=== PATIENT | male | born 1960 | race Caucasian/White ===

== ENCOUNTER 2020-08-23 18:37 | Inpatient (IN) | payer OTHER ==
[~2020-08-23] VITALS: Ht 185.4 cm; Wt 44.6 kg
--- NOTE | 2020-08-23 19:12 | NUR ---
KATE [address] C/O HEAD INJURY AND L ARM WOUNDS S/P GLF. PT NOTED WITH MULTIPLE INJURIES. AOX4, NO SOB NOTED, DENIES PAIN AT THIS TIME. NO S/S OF ANY ACUTE DISTRESS. PT MADE COMFORTABLE, CALL LIGHT WITHIN REACH.
--- NOTE | 2020-08-23 19:18 | NUR ---
BLOOD COLLECTED AND SENT TO THE LAB.
--- NOTE | 2020-08-23 19:33 | NUR ---
JEANNETTE RUBIN COLLECTED ANDSENT TO THE LAB.
[2020-08-23 19:36] LABS: CALCIUM, SERUM 8.6 mg/dL (8.5-10.1); CREATININE 0.6 mg/dL (0.6-1.3); POTASSIUM 4.5 mmol/L (3.5-5.1)
[2020-08-23 19:42] LABS: ALBUMIN 2.2 g/dL (3.4-5.0); BILIRUBIN,DIRECT 0.1 mg/dL (0.0-0.2); BILIRUBIN,TOTAL 0.3 mg/dL (0.2-1.0)
[2020-08-23 19:50] LABS: BASOPHILS # (AUTO) 0.1 K/uL (0.0-0.2); BASOPHILS % (AUTO) 0.8 % (0.0-2.0); EOSINOPHILS % (AUTO) 1.1 % (0.0-6.0); HEMATOCRIT 33 % (39-51); HEMOGLOBIN 10.9 g/dL (13.5-17.5); LYMPHOCYTES # (AUTO) 1.7 K/uL (0.8-4.8); LYMPHOCYTES % (AUTO) 17.6 % (20.0-44.0); MEAN CORPUSCULAR HGB CONC 33 g/dl (31.0-36.0); MEAN CORPUSCULAR VOLUME 89 fL (80-96); MONOCYTES # (AUTO) 0.9 K/uL (0.1-1.30); NEUTROPHILS # (AUTO) 6.8 K/uL (1.8-8.9); NEUTROPHILS % (AUTO) 71.5 % (43.0-81.0); PLATELET COUNT (AUTO) 352 K/uL (150-450); RED BLOOD CELL COUNT(AUTO) 3.71 MIL/uL (4.5-6.0); WHITE BLOOD COUNT (AUTO) 9.5 K/uL (4.3-11.0)
[2020-08-23] MEDS ORDERED: ZOLPIDEM TARTRATE 5 MG TABLET PO PRN (20:30)
[2020-08-23] MEDS ORDERED: MAG HYDROX/AL HYDROX/SIMETH 30 ML UDC PO PRN (20:30)
[2020-08-23] MEDS ORDERED: MAGNESIUM HYDROXIDE 30 ML UDC PO PRN (20:30)
[2020-08-23] MEDS ORDERED: ONDANSETRON HCL/PF 4 MG/2 ML VIAL IVP PRN (20:30)
[2020-08-23] MEDS ORDERED: IV NS 0.9% 1,000 ML BAG IV ONE (20:30)
--- NOTE | 2020-08-23 20:35 | NUR ---
SPOKE WITH LOOP TENDER, PATIENT WILL BE ON GENERALIZED OBSERVATION.
--- NOTE | 2020-08-23 22:08 | NUR ---
TELE 105
--- NOTE | 2020-08-23 22:36 | NUR ---
REPORT GIVEN TO JAVON SUTTON FOR RUSS.
--- NOTE | 2020-08-23 23:11 | NUR ---
PT TRANSFERED PER ACLS PROTOCOL
--- NOTE | 2020-08-23 23:55 | NUR ---
MED NOTE: PT OFFERED NORCO FOR PAIN BUT HE REFUSED. NORCO WAS WASTED WITNESSED BY HEYDI SUTTON.
[2020-08-24] VITALS: BP 118/84
[2020-08-24] MEDS ORDERED: HYDROCODONE/APAP 5/325MG TABLET PO PRN
[2020-08-24 04:00] VITALS: BP 123/79
[2020-08-24 06:49] LABS: BASOPHILS # (AUTO) 0.1 K/uL (0.0-0.2); BASOPHILS % (AUTO) 0.6 % (0.0-2.0); EOSINOPHILS % (AUTO) 1.7 % (0.0-6.0); HEMATOCRIT 33 % (39-51); LYMPHOCYTES # (AUTO) 1.9 K/uL (0.8-4.8); MEAN CORPUSCULAR HGB CONC 33 g/dl (31.0-36.0); MEAN CORPUSCULAR VOLUME 88 fL (80-96); MONOCYTES # (AUTO) 0.8 K/uL (0.1-1.30); NEUTROPHILS # (AUTO) 6.1 K/uL (1.8-8.9); NEUTROPHILS % (AUTO) 67.7 % (43.0-81.0); PLATELET COUNT (AUTO) 377 K/uL (150-450); RED BLOOD CELL COUNT(AUTO) 3.75 MIL/uL (4.5-6.0)
[2020-08-24] MEDS: PANTOPRAZOLE 40 MG TABLET.DR PO SCH (07:26)
--- NOTE | 2020-08-24 07:30 | NUR ---
RN NOTE PATIENT IS IN BED WITH HOB AT SEMI FOWLERS POSITION. PATIENT IS AOX4. PATIENT IS ON ROOM AIR WITH NO SIGNS OF LABORED BREATHING. RFA#18 IS PATENT AND INTACT. BED IS LOCKED IN THE LOWEST POSITION, 3 GUARD RAILS RAISED, CALL PIZANO WITHIN REACH, AND ALL HOSPITAL SAFETY PRECAUTIONS ARE BEING FOLLOWED. WILL CONTINUE TO MONITOR THROUGHOUT SHIFT.
[2020-08-24 07:52] LABS: CALCIUM, SERUM 8.3 mg/dL (8.5-10.1); CREATININE 0.4 mg/dL (0.6-1.3); MAGNESIUM 1.7 mg/dL (1.8-2.4); PHOSPHORUS 3.1 mg/dL (2.5-4.9); POTASSIUM 3.9 mmol/L (3.5-5.1)
[2020-08-24 08:00] VITALS: BP 108/75
[2020-08-24 08:48] LABS: THYROID STIMULATING HORMONE 1.447 uIU/mL (0.358-3.74)
--- NOTE | 2020-08-24 08:56 | NUR ---
patient refused to do ct chest.
[2020-08-24] MEDS ORDERED: IV NS 0.9% 250 ML IV ONE (09:04)
[2020-08-24] MEDS ORDERED: IOHEXOL-300 100 ML VIAL IV ONE (09:04)
[2020-08-24] MEDS: Magnesium 1GM/D5W 100ML PREMIX 100 ML IV SCH ×2 (10:06→11:42)
[2020-08-24] MEDS: MORPHINE SULFATE INJ 4 MG/ML DISP.SYRIN IV PRN ×3 (10:51→20:38)
[2020-08-24] MEDS ORDERED: TIOTROPIUM BROMIDE 6 CAP/BOX CAP.W.DEV IH SCH (12:30)
[2020-08-24] MEDS: ENSURE ENLIVE 237 ML LIQUID (VANILLA) PO SCH ×2 (12:52→17:48)
[2020-08-24] MEDS: GABAPENTIN 300 MG CAPSULE PO SCH ×2 (12:52→16:04)
[2020-08-24] MEDS: DOCUSATE SODIUM 100 MG CAPSULE PO SCH ×2 (12:52→16:04)
[2020-08-24] MEDS: oxyCODONE IR immediate release 5 MG PO PRN ×2 (12:58→21:23)
[2020-08-24] MEDS ORDERED: ENSURE ENLIVE 237 ML LIQUID (VANILLA) PO SCH (13:00)
--- NOTE | 2020-08-24 15:40 | NUR ---
RN NOTE NOTIFIED RT OF PATIENT'S SCHEDULED NEBULIZER TREATMENT
[2020-08-24 16:00] VITALS: BP 108/76
[2020-08-24] MEDS: MEGESTROL ACETATE SUSP 400 MG/10 ML UDC PO SCH (16:04)
--- NOTE | 2020-08-24 17:10 | NUR ---
RN NOTE NOTIFIED DR. VALDIVIA OF DR. MEYERS'S FINDINGS FROM CT OF CHEST/ABDOMEN/PELVIS.
[2020-08-24] MEDS: LEVOFLOXACIN 500 MG /D5W 100ML 500 MG in PREMIX 1 EA IV SCH (18:32)
--- NOTE | 2020-08-24 18:50 | NUR ---
RN NOTE PATIENT IS IN BED WITH HOB AT SEMI FOWLERS POSITION. PATIENT IS AOX4. PATIENT IS ON ROOM AIR WITH NO SIGNS OF LABORED BREATHING. RFA#18 IS PATENT AND INTACT. BED IS LOCKED IN THE LOWEST POSITION, 3 GUARD RAILS RAISED, CALL PIZANO WITHIN REACH, AND ALL HOSPITAL SAFETY PRECAUTIONS ARE BEING FOLLOWED. ALL DUE MEDS GIVEN AND PATIENT REMAINED STABLE THROUGHOUT SHIFT. WILL ENDORSE TO FISH CLEANER MACHINE TENDER RN.
--- NOTE | 2020-08-24 19:30 | NUR ---
MS RN NOTES PATIENT IN BED. A/OX4. EATING SNACKS. NO S/S OF APPARENT DISTRESS. C/O PAIN. NO IV FLUIDS RUNNING AT THE MOMENT. SAFETY IN PLACE. ISOLATION PRECAUTION IN PLACE. WILL CONTINUE TO MONITOR.
[2020-08-24] MEDS: IPRATROPIUM NEB FS 0.5 MG/2.5 ML AMPUL.NEB NEB SCH (20:19)
[2020-08-24] MEDS: ALBUTEROL FS 2.5 MG/0.5 ML VIAL.NEB NEB SCH (20:20)
[2020-08-24] MEDS: CLINDAMYCIN 900 MG in IV D5W 50 ML IV SCH (20:25)
--- NOTE | 2020-08-24 21:08 | NUR ---
MS RN NOTES MORPHINE 1ML GIVEN AT THIS TIME. PATIENT C/O 10/10 PAIN. WILL REASSESS.
--- NOTE | 2020-08-24 22:15 | NUR ---
MS RN NOTES PATIENT C/O UNRELIEVED PAIN, PAIN SCALE OF 8/10. GIVEN OXY IR 30MG. WILL REASSESS AND CONT. TO MONITOR. V/S OKAY.
[2020-08-25] MEDS: MORPHINE SULFATE INJ 4 MG/ML DISP.SYRIN IV PRN ×4 (01:13→22:22)
[2020-08-25] MEDS: IPRATROPIUM NEB FS 0.5 MG/2.5 ML AMPUL.NEB NEB SCH ×4 (02:17→20:31)
[2020-08-25] MEDS: ALBUTEROL FS 2.5 MG/0.5 ML VIAL.NEB NEB SCH ×4 (02:17→20:31)
[2020-08-25] MEDS: CLINDAMYCIN 900 MG in IV D5W 50 ML IV SCH ×3 (05:02→20:02)
[2020-08-25 06:05] LABS: BASOPHILS # (AUTO) 0.1 K/uL (0.0-0.2); BASOPHILS % (AUTO) 0.7 % (0.0-2.0); EOSINOPHILS % (AUTO) 0.7 % (0.0-6.0); HEMATOCRIT 33 % (39-51); HEMOGLOBIN 10.9 g/dL (13.5-17.5); LYMPHOCYTES # (AUTO) 1.9 K/uL (0.8-4.8); LYMPHOCYTES % (AUTO) 18.5 % (20.0-44.0); MEAN CORPUSCULAR HGB CONC 33 g/dl (31.0-36.0); MEAN CORPUSCULAR VOLUME 90 fL (80-96); MONOCYTES % (AUTO) 9.8 % (2.0-12.0); NEUTROPHILS # (AUTO) 7.1 K/uL (1.8-8.9); NEUTROPHILS % (AUTO) 70.3 % (43.0-81.0); PLATELET COUNT (AUTO) 395 K/uL (150-450); RED BLOOD CELL COUNT(AUTO) 3.67 MIL/uL (4.5-6.0); WHITE BLOOD COUNT (AUTO) 10.1 K/uL (4.3-11.0)
[2020-08-25 06:34] LABS: CALCIUM, SERUM 8.5 mg/dL (8.5-10.1); CREATININE 0.5 mg/dL (0.6-1.3); POTASSIUM 4.7 mmol/L (3.5-5.1)
--- NOTE | 2020-08-25 07:00 | NUR ---
MS RN CLOSING PATIENT IN BED. A/OX4. NO S/S OF APPARENT DISTRESS. PAIN MANAGED WITH MEDICATIONS. SAFETY KEPT IN PLACE THE WHOLE SHIFT. ISOLATION IN PLACE. ALL NEEDS ATTENDED. ALL SCHED MEDS ADMINISTERED. PICTURES TAKEN. [employer] COLLECTED AND CALLED LAB FOR PICK-UP. NO SIGNIFICANT CHANGE SINCE LAST SHIFT. WILL ENDORSE CARE TO MORNING SHIFT RN.
[2020-08-25] MEDS: PANTOPRAZOLE 40 MG TABLET.DR PO SCH (07:59)
[2020-08-25] MEDS: DOCUSATE SODIUM 100 MG CAPSULE PO SCH ×2 (08:00→16:02)
[2020-08-25] MEDS: ENSURE ENLIVE 237 ML LIQUID (VANILLA) PO SCH ×3 (08:00→17:00)
[2020-08-25] MEDS: MEGESTROL ACETATE SUSP 400 MG/10 ML UDC PO SCH ×2 (08:00→16:02)
[2020-08-25] MEDS: GABAPENTIN 300 MG CAPSULE PO SCH ×3 (08:00→16:02)
--- NOTE | 2020-08-25 09:48 | NUR ---
RN NOTE PATIENT IS IN BED WITH HOB AT SEMI FOWLERS POSITION. PATIENT IS AOX4. PATIENT IS ON ROOM AIR WITH NO SIGNS OF LABORED BREATHING. LFA#20 IS PATENT AND INTACT. BED IS LOCKED IN THE LOWEST POSITION, 3 GUARD RAILS RAISED, CALL PIZANO WITHIN REACH, AND ALL HOSPITAL SAFETY PRECAUTIONS ARE BEING FOLLOWED. WILL CONTINUE TO MONITOR THROUGHOUT SHIFT.
--- NOTE | 2020-08-25 09:59 | NUR ---
WOUND CARE CONSULT: PT PRESENTS EXTREMELY THIN AND BONY WITH MULTIPLE AREAS OF SCARRING, DRY SKIN, DRY ABRASION TO POSTERIOR SCALP AND RASH TO SCROTAL AREA, PRESENT ON ADMISSION. RECOMMENDATIONS MADE FOR SKIN PROTECTION. DISCUSSED WITH NURSING STAFF. PT IS INDEPENDENT WITH BED MOBILITY AND IS CONTINENT. MD IN AGREEMENT WITH PLAN OF CARE.
[2020-08-25] MEDS: MINERAL OIL/PETROLATUM,WHITE 120 GM JAR TP SCH (10:00)
[2020-08-25] MEDS: oxyCODONE IR immediate release 5 MG PO PRN ×2 (11:24→19:36)
--- NOTE | 2020-08-25 16:09 | NUR ---
Well Logger consult: student services dean consult requested for homelessness, self-neglect, and failure to thrive. Patient is a 60-year-old, male. Suspected TB reported by RN Mayco. COMFORT interviewed patient via phone interview. Patient stated that he is currently homeless for the last two years due to "poor business investments." Patient stated that he currently has cancer. Patient stated that he has been to shelters in the past. Patient currently receives food stamps as a source of income. Patient reported that he has support from local churches and is independent with his ADL's. Patient denied history of substance use. Patient denied history of mental illness. Patient denied current suicidal or homicidal ideation. COMFORT offered patient homeless resources and patient declined the resources stating, "I don't need them, I have all the resources." SW filed homeless waiver in the patient's chart. staffing analyst to follow up at a later time. COMFORT discussed discharge plans with the patient and patient reported that he wants to return to the streets. COMFORT asked patient if he would consider other options for discharge in order due to his health conditions. Patient declined and stated "I want to do things naturally and on my own." COMFORT notified family service caseworkerRosalinda. Case management to follow up. SS will file an APS report for self-neglect. PLAN: SS will file an APS report for self-neglect.
[2020-08-25] MEDS: CLOTRIMAZOLE 1% 15 GM TUBE TP SCH (17:00)
[2020-08-25] MEDS: LEVOFLOXACIN 500 MG /D5W 100ML 500 MG in PREMIX 1 EA IV SCH (17:02)
--- NOTE | 2020-08-25 18:00 | NUR ---
RN NOTE CONSENT OBTAINED FOR CT W/ CONTRAST OF ABDOMEN AND PELVIS. Addendum: 08/25/20 at 1908 by MELE TEMPLETON RN MRI NOT CT
--- NOTE | 2020-08-25 18:45 | NUR ---
RN NOTE PATIENT IS IN BED WITH HOB AT SEMI FOWLERS POSITION. PATIENT IS AOX4. PATIENT IS ON ROOM AIR WITH NO SIGNS OF LABORED BREATHING. LFA#20 IS PATENT AND INTACT. BED IS LOCKED IN THE LOWEST POSITION, 3 GUARD RAILS RAISED, CALL PIZANO WITHIN REACH, AND ALL HOSPITAL SAFETY PRECAUTIONS ARE BEING FOLLOWED. ALL DUE MEDS GIVEN AND PATIENT REMAINED STABLE THROUGHOUT SHIFT. WILL ENDORSE TO SALON SHAMPOO ASSISTANT RN.
--- NOTE | 2020-08-25 19:20 | NUR ---
RN NOTE RECEIVED PATIENT IN BED RESTING ALERT ORIENTED X4 VERBALLY RESPONSIVE ON ROOM AIR 98% IV SITE IS ON LEFT FOREARM INTACT PATENT NPO AFTER MIDNIGHT FOR PROCEDURE TOMORROW MORNING,AMBULATORY CONTINENT TO BOWEL/BLADDER,CALL LIGHT WITHIN REACH,BED IN LOW POSITION AND LOCKED CONTINUE TO MONITOR.
[2020-08-25 19:22] LABS: PROSTATE SPECIFIC ANTIGEN SCR 0.98 ng/mL (0.00-4.00)
[2020-08-25 20:50] VITALS: BP 106/65
--- NOTE | 2020-08-25 21:04 | NUR ---
RT placed pt on 2lnc due to desaturation. sat 85-88%, following post tx. saturation 95-97% on cannula. notified sherice, primary nurse, and efra charge nurse. will continue to monitor pt
--- NOTE | 2020-08-25 21:05 | NUR ---
RN NOTE O2:88-90% ON ROOM AIR RT PUT OXYGEN 2L VIA NASAL CANNULA CALLED DR CLARK SHE ORDERED INCREASE OXYGEN AND CHEST X RAY STAT NOTED AND CARRIED OUT.
--- NOTE | 2020-08-25 21:29 | NUR ---
RN NOTE RECEIVED PATIENT IN BED RESTING ALERT ORIENTED X4 VERBALLY RESPONSIVE ON ROOM AIR 98% IV SITE IS ON LEFT FOREARM INTACT PATENT NPO AFTER MIDNIGHT FOR PROCEDURE TOMORROW MORNING,AMBULATORY CONTINENT TO BOWEL/BLADDER,CALL LIGHT WITHIN REACH,BED IN LOW POSITION AND LOCKED CONTINUE TO MONITOR. Addendum: 08/26/20 at 0604 by NICOLE OLIVAS RN PLS DISREGARD THIS NOTE
[2020-08-25 22:00] VITALS: BP 106/65
[2020-08-26] VITALS (65 sets, daily range): BP systolic 56–161; BP diastolic 30–94
[2020-08-26] MEDS: ALBUTEROL FS 2.5 MG/0.5 ML VIAL.NEB NEB SCH ×4 (02:01→20:18)
[2020-08-26] MEDS: IPRATROPIUM NEB FS 0.5 MG/2.5 ML AMPUL.NEB NEB SCH ×4 (02:01→20:18)
[2020-08-26] MEDS: MORPHINE SULFATE INJ 4 MG/ML DISP.SYRIN IV PRN (03:05)
[2020-08-26] MEDS: CLINDAMYCIN 900 MG in IV D5W 50 ML IV SCH ×3 (04:15→22:33)
[2020-08-26] MEDS ORDERED: LORAZEPAM INJ 2 MG/ML VIAL IV ONE (04:30)
[2020-08-26] MEDS ORDERED: LORAZEPAM INJ 2 MG/ML VIAL IV PRN (04:30)
--- NOTE | 2020-08-26 04:41 | NUR ---
RN NOTES, CALLED DR MATAMOROS AND INFORMED ABOUT PATIENT'S CONDITION, SUPERVISOR CAP AND HAT PRODUCTION AT ROOM AT THIS TIME ASSESSING PATIENT, INFORMED MD THAT PATIENT WITH DESATURATION EPISODE AND PLACE ON NRM AT 15L WITH O2 90 AT THIS TIME, AND SHE REPLIED WITH [facility], AND GIVE LASIX 40MG IV X ONE, AND INFORMED HER ABOUT [facility] RESULTS.
[2020-08-26] MEDS ORDERED: FUROSEMIDE 20 MG/2 ML VIAL IV ONE (04:47)
--- NOTE | 2020-08-26 04:58 | NUR ---
RN NOTES, INFORMED [facility] THAT PATIENT STILL VERY LETHARGIC WITH O2 96%, BUT WITH LOW RESPIRATORY RATE OF 6, MD REPLIED WITH ORDER TO TRANSFER TO ICU, CALL ER TEAM AND INTUBATE, ALL ORDERS NOTED AND CARRIED OUT.
[2020-08-26 05:01] LABS: ABG BASE EXCESS 2.7 mmol/L; ABG OXYGEN SATURATION 94.8 % (92.0-98.5); ABG PCO2 191.3 mmHg (35.0-45.0); ABG PH 6.934 (7.350-7.450); ABG PO2 109.2 mmHg (75.0-100.0); AaDO2 412.5 mmHg; COHb 0.6 % (0.5-1.5); MetHb 0.4 % (0.0-1.5); O2Hb 93.9 % (94.0-97.0); SITE, ABG Left Brachial; VENT MODE, BG 15 LMP
--- NOTE | 2020-08-26 05:10 | NUR ---
RN NOTE PATIENT TRANSFERRED TO ICU AT ROOM 255
--- NOTE | 2020-08-26 05:11 | NUR ---
RN NOTE DURING MY SHIFT PATIENT WAS IN ROOM AIR AND BREATHING BY OWN AT 22:00 PATIENT DESATURATING TO LOW [address] MATAMOROS AND SHE ORDERED CHEST X-RAY AND INCREASED OXYGEN,AT 4:00 AM PATIENT DESATURATING AT PUT NONBREATHER MASK 15L STILL 88% CALLED RAPID RESPONSE AT 0433,RAPID RESPONSE ARRIVED ON 0435,PATIENT LETHARGIC,BREATHING VERY SLOW VITAL SIGN BP 141/82 RR 4 O2;88% ON NON REBREATHER MASK BLOOD SUGAR IS 98.O2; IMPROVED TO 97% BUT RESPIRATORY RATE IS 4 TRANSFERRED TO ICU AT 0505
--- NOTE | 2020-08-26 05:15 | NUR ---
SAUSAGE TIER. VENKATA RN ACTIVATED RAPID RESPOND. I WENT ASSESSED THE PT . PT WAS VERY DROWSY . .. PT VOMITED NOTED. SATURATION WAS 90 WITH NON REBREATHER. BP AND HEART RATE WAS NORMAL. TRANSFER THE PT TO ICU FOR INTUBATION. MD REICH CAME AND INTUBATED THE PT. ETOMIDATE 20MG IV, SUCCINYLCHOLINE 120MG IV GIVEN. PT INTUBATED AT 0524. ETT 7.5,LIP 23,AC 28,TV 500,FIO2 100%,PEEP 5. SAT 94%.
[2020-08-26 05:56] LABS: BASOPHILS % (AUTO) 0.4 % (0.0-2.0); EOSINOPHILS % (AUTO) 0.7 % (0.0-6.0); HEMATOCRIT 33 % (39-51); HEMOGLOBIN 10.8 g/dL (13.5-17.5); LYMPHOCYTES # (AUTO) 2.2 K/uL (0.8-4.8); LYMPHOCYTES % (AUTO) 16.4 % (20.0-44.0); MEAN CORPUSCULAR HGB CONC 32 g/dl (31.0-36.0); MEAN CORPUSCULAR VOLUME 90 fL (80-96); MONOCYTES # (AUTO) 1.1 K/uL (0.1-1.30); MONOCYTES % (AUTO) 8.1 % (2.0-12.0); NEUTROPHILS # (AUTO) 9.8 K/uL (1.8-8.9); NEUTROPHILS % (AUTO) 74.4 % (43.0-81.0); PLATELET COUNT (AUTO) 468 K/uL (150-450); WHITE BLOOD COUNT (AUTO) 13.1 K/uL (4.3-11.0)
[2020-08-26 06:01] LABS: ABG OXYGEN SATURATION 99.8 % (92.0-98.5); ABG PCO2 76.8 mmHg (35.0-45.0); ABG PH 7.288 (7.350-7.450); ABG PO2 341.9 mmHg (75.0-100.0); AaDO2 294.3 mmHg; COHb 0.1 % (0.5-1.5); MetHb 0.3 % (0.0-1.5); O2Hb 99.4 % (94.0-97.0); SITE, ABG Left Radial; VENT MODE, BG AC 24 500 100% +5
[2020-08-26] MEDS: PROPOFOL 100 ML IV PRN ×4 (06:05→22:32)
--- NOTE | 2020-08-26 06:05 | NUR ---
SALES SPECIALIST. PT WAS AGITATED. NOA SOFT WRIST RESTRAINT INITIATED . FC INSERTED WITH OUT DIFFICULT. IVF NS 100ML/H, PROPOFOL 5MCG/KG/MIN,LEVOPHED 0.1MCG/KG/MIN, STARTED. S/P INTUBATION CHEST X RAY DONE. PT IS UNSTABLE. REPORT GIVEN CLAYTON SUTTON.
[2020-08-26] MEDS: IV NS 0.9% 1,000 ML IV PRN ×2 (06:14→15:50)
[2020-08-26 06:25] LABS: CALCIUM, SERUM 8.9 mg/dL (8.5-10.1); CREATININE 0.7 mg/dL (0.6-1.3); POTASSIUM 5.3 mmol/L (3.5-5.1)
--- NOTE | 2020-08-26 07:10 | NUR ---
BROOM BUILDER NOTES RECEIVED PATIENT IN BED, S/P ANTIQUE DEALER CODE. INTUBATED AND ON A VENT, NOTED WITH MILD AGITATION. WILL TITRATE PROPOFOL, NOTED WITH NOA SOFT WRIST RESTRAINT. SOW CATHTER IN PLACE DRAINING CLEAR YELLOW URINE, IV ACCESS ON LEFT FOREARM #20, PROPOFOL @10 MCG/KG/MIN, LEVO 0.1 MCG/KG/MIN AND NS RUNNING @100ML/HR. SAFETY MEASURES MAINTAINED, WILL CONTINUE TO MONITOR.
[2020-08-26] MEDS: PANTOPRAZOLE 40 MG TABLET.DR PO SCH (07:30)
[2020-08-26] MEDS: NOREPINEPHRINE 8 MG in IV NS 0.9% 242 ML IV PRN ×2 (07:30→21:25)
[2020-08-26] MEDS: MEGESTROL ACETATE SUSP 400 MG/10 ML UDC PO SCH ×2 (08:28→17:20)
[2020-08-26] MEDS: DOCUSATE SODIUM 100 MG CAPSULE PO SCH ×2 (08:28→17:20)
[2020-08-26] MEDS: ENSURE ENLIVE 237 ML LIQUID (VANILLA) PO SCH ×3 (08:28→17:00)
[2020-08-26] MEDS: GABAPENTIN 300 MG CAPSULE PO SCH ×3 (08:28→17:20)
--- NOTE | 2020-08-26 08:30 | NUR ---
RN HEMO DIALYSIS NOTES PATIENT HR WENT UP, ON LEVO, MADE AWARE WITH ORDER OF NS 500ML TO GIVE BOLUS. ORDERS MADE AND CARRIED OUT. WILL CONTINUE TO MONITOR.
[2020-08-26] MEDS ORDERED: IV NS 0.9% 500 ML IV ONE (09:00)
--- NOTE | 2020-08-26 09:00 | NUR ---
BINGO USHER NOTES HR STILL ON 110'S, MADE AWARE WITH ORDER OF NEOSYNEPHRINE IV DRIP STANDARD DOSE, ORDERS MADE AND CARRIED OUT. WILL CONTINUE TO MONITOR.
[2020-08-26] MEDS: CLOTRIMAZOLE 1% 15 GM TUBE TP SCH ×2 (09:28→17:20)
[2020-08-26] MEDS: MINERAL OIL/PETROLATUM,WHITE 120 GM JAR TP SCH (09:28)
--- NOTE | 2020-08-26 09:30 | NUR ---
CARD GAME OPERATOR NOTES SEEN AND EXAMINED BY DR. LEVIN WITH NNO AT THIS TIME.
[2020-08-26] MEDS: PHENYLEPHRINE 50 MG in IV NS 0.9% 245 ML IV PRN ×3 (09:59→22:16)
--- NOTE | 2020-08-26 10:41 | NUR ---
PATIENT ON VENT UNABLE TO DO MRI, NURSE NOTIFIED.
[2020-08-26] MEDS: HYDROCORTISONE SOD SUCCINATE 100 MG/2 ML VIAL IV SCH ×2 (10:53→18:03)
[2020-08-26] MEDS ORDERED: ETOMIDATE 2 MG/ML VIAL IV ONE (11:28)
[2020-08-26] MEDS ORDERED: SUCCINYLCHOLINE CHLORIDE 20 MG/ML VIAL IV ONE (11:28)
[2020-08-26] MEDS ORDERED: FEE EMEERGENCY 1 MIN EA MC ONE (11:28)
--- NOTE | 2020-08-26 13:30 | NUR ---
TRAIN CONTROL TECHNICIAN NOTES NG TUBE INSERTED ON RIGHT NARE, VERIFIED WITH FENG CHARGE NURSE. WILL CONTINUE TO MONITOR.
[2020-08-26] MEDS: FERROUS SULFATE (325 MG) 325 MG/TAB TABLET PO SCH ×2 (13:43→17:20)
[2020-08-26] MEDS: ACETAMINOPHEN 325 MG TABLET PO PRN (13:43)
[2020-08-26 14:45] LABS: BILIRUBIN,URINE NEGATIVE (NEGATIVE); COLOR,URINE YELLOW (YELLOW); LEUKOCYTE ESTERASE ,URINE NEGATIVE (NEGATIVE); NITRITE, URINE NEGATIVE (NEGATIVE); PROTEIN,URINE NEGATIVE (NEGATIVE); UGLUCOSE NEGATIVE (NEGATIVE); UROBILINOGEN,URINE 0.2 EU/dL (0.2)
--- NOTE | 2020-08-26 15:04 | NUR ---
SW completed APS report for self-neglect. Intake #[id number].
[2020-08-26] MEDS: LEVOFLOXACIN 500 MG /D5W 100ML 500 MG in PREMIX 1 EA IV SCH (17:21)
--- NOTE | 2020-08-26 18:24 | NUR ---
PT. 60 Y OLD MALE. REC. IN ICU 077 ORALLY INTUBATED, ETT #7.5@23 CM LIP LINE, ON VENT WITH NOTED SETTINGS, ALARMS ARE SET AND FUNCTIONAL. B/S DIMINISHED BILATERALLY, CHEST RISE NOTED VENT PLUGGED INTO RED OUTLET, AMBU BAG AT THE BEDSIDE. @0725 PLACED ON FIO2 100% DUE TO DESATURATION. @0830 D/C PEEP PER DR. HYATT ORDER AT THE BEDSIDE DUE TO HYPOTENSIVE. @1350 FIO2 70% TITRATED. TX'S GIVEN INLINE NO ADVERSE REACTION NOTED, CONTINUOUS MINER OPERATOR HELPER DONE HME CHANGED NO ABG PER DR. HYATT NO CHANGES AND REPORT WILL PASS TO PM SHIFT. Addendum: 08/26/20 at 1831 by JACQUELINE PAGE RT Amended: Links added.
--- NOTE | 2020-08-26 18:54 | NUR ---
PHYSICAL EDUCATION AIDE NOTES PATIENT IN BED, INTUBATED AND SEDATED, TOLERATING CURRENT SETTING SATING 97%, IV ACCESS ON LEFT FOREARM#20 RUNNING NS @100ML/HR, LEVO @0.2 MCG/KG/MIN, ELLEN @3 MCG/KG/MIN AND PROPOFOL @70 MCG/KG/MIN. AWAITING FOR PICC LINE INSERTION, DR. LEVIN SIGNED CONSENT, SOW CATHETER IN PLACE, DRAINING VIA GRAVITY WITH CLEAR YELLOW URINE. NG TUBE ON RIGHT NARE, CLAMPED, SAFETY MEASURES IN PLACE, WILL ENDORSE TO WARPER CREELER NURSE FOR RUSS.
[2020-08-27] VITALS (91 sets, daily range): BP systolic 78–160; BP diastolic 23–99
[2020-08-27] MEDS: ALBUTEROL FS 2.5 MG/0.5 ML VIAL.NEB NEB SCH ×4 (01:36→19:36)
[2020-08-27] MEDS: IPRATROPIUM NEB FS 0.5 MG/2.5 ML AMPUL.NEB NEB SCH ×4 (01:36→19:36)
--- NOTE | 2020-08-27 02:23 | NUR ---
patient sedated on propofol at 70 mcg, luis felipe 3 mcg/kg/min, levophed 0.1 mcg/kg/min ns 100 hr. patient had a picc line put in tonite in upper rt. arm site looks good no distress noted.
[2020-08-27] MEDS: PHENYLEPHRINE 50 MG in IV NS 0.9% 245 ML IV PRN ×3 (04:09→18:50)
[2020-08-27] MEDS: PROPOFOL 100 ML IV PRN ×4 (04:09→19:52)
[2020-08-27] MEDS: HYDROCORTISONE SOD SUCCINATE 100 MG/2 ML VIAL IV SCH ×3 (04:10→18:11)
[2020-08-27 04:26] LABS: HEMATOCRIT 34 % (39-51); HEMOGLOBIN 10.9 g/dL (13.5-17.5); LYMPHOCYTES # (AUTO) 1.1 K/uL (0.8-4.8); LYMPHOCYTES % (AUTO) 3.9 % (20.0-44.0); MEAN CORPUSCULAR HGB CONC 33 g/dl (31.0-36.0); MEAN CORPUSCULAR VOLUME 89 fL (80-96); MONOCYTES # (AUTO) 1.6 K/uL (0.1-1.30); MONOCYTES % (AUTO) 5.4 % (2.0-12.0); NEUTROPHILS # (AUTO) 26.3 K/uL (1.8-8.9); NEUTROPHILS % (AUTO) 90.7 % (43.0-81.0); PLATELET COUNT (AUTO) 501 K/uL (150-450); RED BLOOD CELL COUNT(AUTO) 3.78 MIL/uL (4.5-6.0)
[2020-08-27 04:38] LABS: BILIRUBIN,TOTAL 0.4 mg/dL (0.2-1.0); CALCIUM, SERUM 8.1 mg/dL (8.5-10.1); CREATININE 0.8 mg/dL (0.6-1.3); MAGNESIUM 1.7 mg/dL (1.8-2.4); PHOSPHORUS 4.5 mg/dL (2.5-4.9); POTASSIUM 3.8 mmol/L (3.5-5.1); TOTAL PROTEIN, SERUM 6.7 g/dL (6.4-8.2)
[2020-08-27] MEDS: CLINDAMYCIN 900 MG in IV D5W 50 ML IV SCH ×3 (05:10→20:56)
--- NOTE | 2020-08-27 07:30 | NUR ---
RN OPENING NOTES RECEIVED PATIENT SEDATED AND ORALLY INTUBATED. TOLERATING MECHVENT SETTINGS OF AC 28 TV 500 FIO2 70% PEEP 0. SR-ST ON BEDSIDE MONITOR. OGT CLAMPED. PERIPHERAL LINE NOTED AND LAURENT PICC WITH PROPOFOL AT 70MCG/KG/HR. ELLEN AT 3MCG/KG/HR AND N/S AT 100ML/HR. SOW DRAINING BY GRAVITY. SAFETY CHECKS IN PLACE. WILL CONTINUE TO MONITOR.
[2020-08-27] MEDS ORDERED: FERROUS SULFATE (325 MG) 325 MG/TAB TABLET PO SCH (08:00)
[2020-08-27 08:06] LABS: IMMUNOGLOBULIN A, SERUM 363 mg/dL (90-386); IMMUNOGLOBULIN G, SERUM 2117 mg/dL (603-1613); IMMUNOGLOBULIN M, SERUM 232 mg/dL (20-172)
[2020-08-27 08:53] LABS: ABG PCO2 44.8 mmHg (35.0-45.0); ABG PH 7.428 (7.350-7.450); ABG PO2 87.2 mmHg (75.0-100.0); AaDO2 291.3 mmHg; COHb 0.1 % (0.5-1.5); MetHb 0.2 % (0.0-1.5); O2Hb 96.7 % (94.0-97.0); PEEP,BG 0 cm H2O; SITE, ABG Right Radial; VT, ABG 500 mL
[2020-08-27] MEDS: FERROUS SULFATE (325 MG) 325 MG/TAB TABLET PO SCH ×2 (08:55→17:29)
[2020-08-27] MEDS: Magnesium 1GM/D5W 100ML PREMIX 100 ML IV SCH ×2 (08:55→09:17)
[2020-08-27] MEDS: MEGESTROL ACETATE SUSP 400 MG/10 ML UDC PO SCH ×2 (08:55→17:29)
[2020-08-27] MEDS: PANTOPRAZOLE 40 MG TABLET.DR PO SCH (08:56)
[2020-08-27] MEDS: DOCUSATE SODIUM 100 MG CAPSULE PO SCH ×2 (08:56→17:29)
[2020-08-27] MEDS: GABAPENTIN 300 MG CAPSULE PO SCH ×3 (08:56→17:29)
[2020-08-27] MEDS: MINERAL OIL/PETROLATUM,WHITE 120 GM JAR TP SCH (08:57)
[2020-08-27] MEDS: CLOTRIMAZOLE 1% 15 GM TUBE TP SCH ×2 (08:57→17:29)
[2020-08-27] MEDS: ENSURE ENLIVE 237 ML LIQUID (VANILLA) PO SCH (08:57)
[2020-08-27] MEDS: IV NS 0.9% 1,000 ML IV PRN ×2 (09:30→18:12)
[2020-08-27] MEDS: PROSOURCE / PROSTAT (PYXIS) 30 ML UDC GT SCH (12:45)
[2020-08-27 14:07] LABS: *SPE A/G RATIO 0.6 (0.7-1.7); *SPE ALBUMIN 2.6 g/dL (2.9-4.4); *SPE ALPHA-1-GLOBULIN 0.2 g/dL (0.0-0.4); *SPE ALPHA-2-GLOBULIN 0.8 g/dL (0.4-1.0); *SPE GLOBULIN, TOTAL 4.1 g/dL (2.2-3.9); *SPE M-SPIKE Not Observed g/dL (Not Observed); *SPEGAMMA GLOBULIN 2.2 g/dL (0.4-1.8)
[2020-08-27] MEDS: JEVITY 1.2 CAL 1,000 ML BOTTLE GT PRN (17:30)
[2020-08-27] MEDS: LEVOFLOXACIN 500 MG /D5W 100ML 500 MG in PREMIX 1 EA IV SCH (17:30)
--- NOTE | 2020-08-27 18:54 | NUR ---
RN CLOSING NOTES PATIENT REMAINS SEDATED AND ORALLY INTUBATED. TOLERATING MECHVENT SETTINGS OF AC 28 TV 500 FIO2 60% PEEP 0. SR-ST 90S ON BEDSIDE MONITOR. OGT TO JEVITY AT 10ML/HR TOLERATING WELL. PERIPHERAL LINE NOTED AND LAURENT PICC WITH PROPOFOL AT 70MCG/KG/HR. ELLEN AT 3MCG/KG/HR AND N/S AT 100ML/HR. SOW DRAINING BY GRAVITY. SAFETY CHECKS IN PLACE. WILL ENDORSE TO NIGHT RN FOR CONTINUITY OF CARE.
[2020-08-27] MEDS ORDERED: IV 1/2NS 1000 ML 1,000 ML IV PRN (19:00)
--- NOTE | 2020-08-27 19:30 | NUR ---
RN NOTES RECEIVED PATIENT SEDATED ON BED WITH ETT 7.5 AND 20 CM AT LIPLINE. WITH VENT SETTING AC 28 TV 500 FIO2 60% NO PEEP SR ON MONITOR HR ON 90'S. PATIENT IS CALM NO ACUTE RESPIRATORY DISTRESS. WITH OGT INTACT AND PATENT RUNNING WITH JEVITY @ 10 ML/HR GOAL IS TO REACH TO 30 ML TOLERATED. IV SITE ON LFA AND LAURENT WITH PROPOFOL @ 70 MCG/KG/MIN AND ELLEN AT 3 MCG/KG/MIN TITRATED PROTOCOL ORDER. PATIENT IS AFEBRILE. VSS KEPT PT CLEAN AND COMFORTABLE IN BED. TURN AND REPOSITION Q2H. OFFLOADED EXT WITH PILLOWS. WILL CLOSELY MONITOR.
[2020-08-28] VITALS (93 sets, daily range): BP systolic 79–145; BP diastolic 53–96
[2020-08-28] MEDS: PROPOFOL 100 ML IV PRN ×6 (00:28→20:35)
[2020-08-28] MEDS: PHENYLEPHRINE 50 MG in IV NS 0.9% 245 ML IV PRN ×3 (00:34→17:21)
[2020-08-28] MEDS: ALBUTEROL FS 2.5 MG/0.5 ML VIAL.NEB NEB SCH ×4 (01:20→19:37)
[2020-08-28] MEDS: IPRATROPIUM NEB FS 0.5 MG/2.5 ML AMPUL.NEB NEB SCH ×4 (01:20→19:37)
[2020-08-28] MEDS: HYDROCORTISONE SOD SUCCINATE 100 MG/2 ML VIAL IV SCH ×3 (03:22→18:39)
[2020-08-28 04:27] LABS: BASOPHILS % (AUTO) 0.1 % (0.0-2.0); HEMATOCRIT 33 % (39-51); HEMOGLOBIN 10.9 g/dL (13.5-17.5); LYMPHOCYTES # (AUTO) 0.8 K/uL (0.8-4.8); LYMPHOCYTES % (AUTO) 3.3 % (20.0-44.0); MEAN CORPUSCULAR HGB CONC 33 g/dl (31.0-36.0); MEAN CORPUSCULAR VOLUME 89 fL (80-96); MONOCYTES # (AUTO) 1.4 K/uL (0.1-1.30); MONOCYTES % (AUTO) 5.6 % (2.0-12.0); NEUTROPHILS # (AUTO) 22.8 K/uL (1.8-8.9); PLATELET COUNT (AUTO) 497 K/uL (150-450); RED BLOOD CELL COUNT(AUTO) 3.75 MIL/uL (4.5-6.0); WHITE BLOOD COUNT (AUTO) 25.1 K/uL (4.3-11.0)
[2020-08-28 04:37] LABS: ALBUMIN 1.6 g/dL (3.4-5.0); BILIRUBIN,TOTAL 0.3 mg/dL (0.2-1.0); CALCIUM, SERUM 8.6 mg/dL (8.5-10.1); CREATININE 0.5 mg/dL (0.6-1.3); MAGNESIUM 2.1 mg/dL (1.8-2.4); PHOSPHORUS 1.9 mg/dL (2.5-4.9); TOTAL PROTEIN, SERUM 6.3 g/dL (6.4-8.2)
[2020-08-28 04:44] LABS: POTASSIUM 2.8 mmol/L (3.5-5.1)
[2020-08-28] MEDS: CLINDAMYCIN 900 MG in IV D5W 50 ML IV SCH ×3 (04:52→21:00)
--- NOTE | 2020-08-28 05:35 | NUR ---
RN NOTES RECEIVED CRITICAL RESULT FROM LAB SPOKE TO KENNETH POTASSIUM 2.8. INFORMED ONCWILLOW HUFF NP WITH NEW ORDER TO GIVE KCL 50 MEQ. NOTED ADN CARRIED OUT ORDER.
[2020-08-28] MEDS: POTASSIUM CL. PREMIX PERIPHER. 50 ML IV SCH ×5 (05:59→10:59)
[2020-08-28] MEDS: MINERAL OIL/PETROLATUM,WHITE 120 GM JAR TP SCH (08:38)
[2020-08-28] MEDS: DOCUSATE SODIUM 100 MG CAPSULE PO SCH (08:39)
[2020-08-28] MEDS: FERROUS SULFATE (325 MG) 325 MG/TAB TABLET PO SCH ×2 (08:39→17:08)
[2020-08-28] MEDS: PANTOPRAZOLE 40 MG TABLET.DR PO SCH (08:39)
[2020-08-28] MEDS: GABAPENTIN 300 MG CAPSULE PO SCH ×3 (08:39→17:08)
[2020-08-28] MEDS: PROSOURCE / PROSTAT (PYXIS) 30 ML UDC GT SCH (08:39)
[2020-08-28] MEDS: CLOTRIMAZOLE 1% 15 GM TUBE TP SCH ×2 (08:40→17:08)
[2020-08-28] MEDS: MEGESTROL ACETATE SUSP 400 MG/10 ML UDC PO SCH ×2 (08:41→17:08)
[2020-08-28 08:44] LABS: ABG BASE EXCESS 3.1 mmol/L; ABG OXYGEN SATURATION 93.6 % (92.0-98.5); ABG PCO2 44.7 mmHg (35.0-45.0); ABG PH 7.417 (7.350-7.450); ABG PO2 65.5 mmHg (75.0-100.0); AaDO2 204.5 mmHg; MetHb 0.3 % (0.0-1.5); O2Hb 93.3 % (94.0-97.0); PEEP,BG 0 cm H2O; SITE, ABG Right Radial; VT, ABG 500 mL
[2020-08-28] MEDS ORDERED: NEUTRA PHOS 1 POWD.PACKET GT ONE (11:00)
--- NOTE | 2020-08-28 13:29 | NUR ---
RN NOTE 0715: Received patient with ETT to vent, tolerated settings at this time. Sedated on Diprivan. With LAURENT PICC intact. On Diprivan @ 75mcg and on Christiano 1.9, will titrate meds as ordered. With Scott cath intact, noted with michael colored urine drained to BSD. With OGT intact, noted with 30mL residuals will continue monitoring for per previous shift noted 100mL residuals, will increase rate when able. K replacement ongoing. 0900: S/E by Dr. Leyva, no plan for weaning at this time. Plan to do bronch tomorrow. 1100: Rendered sedation vacation, noted with mild agitation, facial grimace, restless on 35 mcg, will titrate up for comfort. 1320: No any significant changes noted at this time. Kept clean, warm and dry.
[2020-08-28] MEDS: LEVOFLOXACIN 500 MG /D5W 100ML 500 MG in PREMIX 1 EA IV SCH (17:20)
--- NOTE | 2020-08-28 19:30 | NUR ---
DIRECTOR LOSS PREVENTION RCD PT W/DX PNA, SEPSIS. PT IS SEDATED PROPOFOL AT 80 MCG/KG/MIN. BLSW RESTRAINTS IN PLACE TO PREVENT SELF EXTUBATION. INTUBATED 7.5 @ 23 W/VENT SETTINGS AC 28 500 45% +0. RENDERED ORAL CARE; MIN WHITE SECRETIONS NOTED. NSR ON MONITOR. ELLEN @ 1.5 MCG/KG/MIN TO MAINTAIN SBP >90; TITRATE ACCORDINGLY. MULTIPLE SKIN TEARS AND BONY PRMONINENCES WITH FOAM DRESSING IN PLACE. JEVITY 1.2 @ 30 ML/HR VIA RIGHT NARE NG TUBE TO BE TURNED OFF AT 0600 FOR BRONCHOSCOPY AT 1300.
[2020-08-29] VITALS (94 sets, daily range): BP systolic 81–132; BP diastolic 53–83
[2020-08-29] MEDS: PROPOFOL 100 ML IV PRN ×7 (00:10→23:40)
[2020-08-29] MEDS: IPRATROPIUM NEB FS 0.5 MG/2.5 ML AMPUL.NEB NEB SCH ×4 (01:16→19:29)
[2020-08-29] MEDS: ALBUTEROL FS 2.5 MG/0.5 ML VIAL.NEB NEB SCH ×4 (01:16→19:29)
--- NOTE | 2020-08-29 02:00 | NUR ---
MUSIC PUBLICIST RENDERED COMPLETE BED BATH, ECG LEAD AND LINEN CHANGED. WOUND TREATMENT RENDERED. PT TOLERATED WELL.
[2020-08-29] MEDS: HYDROCORTISONE SOD SUCCINATE 100 MG/2 ML VIAL IV SCH ×3 (03:31→18:11)
--- NOTE | 2020-08-29 04:00 | NUR ---
MOVING PICTURE PRODUCER TUBE FEEDING TURNED OFF PT IS NPO STATUS FOR PROCEDURE AT 1300
[2020-08-29 04:30] LABS: BASOPHILS # (AUTO) 0.1 K/uL (0.0-0.2); BASOPHILS % (AUTO) 0.3 % (0.0-2.0); HEMATOCRIT 34 % (39-51); HEMOGLOBIN 10.8 g/dL (13.5-17.5); LYMPHOCYTES # (AUTO) 0.7 K/uL (0.8-4.8); LYMPHOCYTES % (AUTO) 2.7 % (20.0-44.0); MEAN CORPUSCULAR HGB CONC 32 g/dl (31.0-36.0); MEAN CORPUSCULAR VOLUME 88 fL (80-96); MONOCYTES # (AUTO) 1.2 K/uL (0.1-1.30); MONOCYTES % (AUTO) 4.6 % (2.0-12.0); NEUTROPHILS # (AUTO) 24.7 K/uL (1.8-8.9); NEUTROPHILS % (AUTO) 92.4 % (43.0-81.0); PLATELET COUNT (AUTO) 449 K/uL (150-450); WHITE BLOOD COUNT (AUTO) 26.7 K/uL (4.3-11.0)
[2020-08-29] MEDS: PHENYLEPHRINE 50 MG in IV NS 0.9% 245 ML IV PRN ×2 (04:30→21:30)
[2020-08-29] MEDS: CLINDAMYCIN 900 MG in IV D5W 50 ML IV SCH ×2 (04:30→12:33)
[2020-08-29 04:43] LABS: ALBUMIN 1.5 g/dL (3.4-5.0); BILIRUBIN,TOTAL 0.3 mg/dL (0.2-1.0); CALCIUM, SERUM 9.2 mg/dL (8.5-10.1); CREATININE 0.5 mg/dL (0.6-1.3); MAGNESIUM 1.7 mg/dL (1.8-2.4); PHOSPHORUS 2.8 mg/dL (2.5-4.9); POTASSIUM 3.3 mmol/L (3.5-5.1); TOTAL PROTEIN, SERUM 6.2 g/dL (6.4-8.2)
--- NOTE | 2020-08-29 05:00 | NUR ---
GENERAL STORE MANAGER DECREASED ELLEN TO 1 MCG/KG/MIN FOR BP 122/75
[2020-08-29] MEDS: PANTOPRAZOLE 40 MG/PACK PACK GT SCH (08:34)
[2020-08-29] MEDS: PROSOURCE / PROSTAT (PYXIS) 30 ML UDC GT SCH (08:34)
[2020-08-29] MEDS: DOCUSATE SODIUM LIQ 100 MG/10 ML UDC GT SCH ×2 (08:34→16:38)
[2020-08-29] MEDS: FERROUS SULFATE (325 MG) 325 MG/TAB TABLET PO SCH ×2 (08:35→16:38)
[2020-08-29] MEDS: MINERAL OIL/PETROLATUM,WHITE 120 GM JAR TP SCH (08:35)
[2020-08-29] MEDS: GABAPENTIN 300 MG CAPSULE PO SCH ×3 (08:35→16:38)
[2020-08-29] MEDS: MEGESTROL ACETATE SUSP 400 MG/10 ML UDC PO SCH ×2 (08:35→16:38)
[2020-08-29] MEDS: CLOTRIMAZOLE 1% 15 GM TUBE TP SCH ×2 (08:35→16:39)
[2020-08-29] MEDS ORDERED: IV D5/ 0.9% NACL 1,000 ML IV PRN (09:00)
[2020-08-29] MEDS ORDERED: POTASSIUM CHLORIDE 20 MEQ POWDER PACKET GT SCH (10:00)
[2020-08-29] MEDS: Magnesium 1GM/D5W 100ML PREMIX 100 ML IV SCH ×2 (10:44→11:32)
[2020-08-29] MEDS: POTASSIUM CL. PREMIX PERIPHER. 50 ML IV SCH ×2 (10:44→11:32)
--- NOTE | 2020-08-29 12:00 | NUR ---
RN NOTE 0715: Received patient with ETT to vent, tolerated settings well. With LAURENT PICC intact, on Diprivan @ 80mcg, sedated. On Christiano @ 1mcg, will titrate as ordered. No sedation vacation for today per Dr. Leyva for Bronch. Kept NPO. Scott cath intact, noted with michael colored urine drained to BSD. With MORTGAGE UNDERWRITER restraints on for safety. 1200: No any significant changes noted at this time, kept clean warm and dry.
--- NOTE | 2020-08-29 14:19 | NUR ---
RN NOTE 1340: Dr. Leyva verbalized to place Diprivan from 80mcg to 100mcg, during procedure. Dr. Leyva rendered bronchoscopy, with specimen gathered and sent to lab for cytology and C/S, verified with labs if orders were correct. 1410: Patient VSS, tolerated procedure.
[2020-08-29] MEDS: JEVITY 1.2 CAL 1,000 ML BOTTLE GT PRN (15:19)
[2020-08-29] MEDS ORDERED: CEFEPIME 1 GM in IV D5W 50 ML IV SCH (16:00)
[2020-08-29] MEDS: CEFEPIME 2 GM in IV D5W 100 ML IV SCH (16:39)
[2020-08-29] MEDS: ACETAMINOPHEN 325 MG TABLET PO PRN (20:15)
[2020-08-30] VITALS (79 sets, daily range): BP systolic 83–140; BP diastolic 44–80
[2020-08-30] MEDS: IPRATROPIUM NEB FS 0.5 MG/2.5 ML AMPUL.NEB NEB SCH ×4 (01:19→19:45)
[2020-08-30] MEDS: ALBUTEROL FS 2.5 MG/0.5 ML VIAL.NEB NEB SCH ×4 (01:19→19:45)
[2020-08-30] MEDS: PROPOFOL 100 ML IV PRN ×4 (02:55→22:41)
[2020-08-30] MEDS: HYDROCORTISONE SOD SUCCINATE 100 MG/2 ML VIAL IV SCH ×3 (02:55→18:07)
[2020-08-30] MEDS: CEFEPIME 2 GM in IV D5W 100 ML IV SCH ×2 (04:15→16:26)
[2020-08-30] MEDS: IV NS 0.9% 250 ML IV PRN ×2 (04:15→20:58)
[2020-08-30 05:04] LABS: BASOPHILS % (AUTO) 0.1 % (0.0-2.0); HEMATOCRIT 35 % (39-51); HEMOGLOBIN 11.4 g/dL (13.5-17.5); LYMPHOCYTES % (AUTO) 3.4 % (20.0-44.0); MEAN CORPUSCULAR HGB CONC 33 g/dl (31.0-36.0); MEAN CORPUSCULAR VOLUME 89 fL (80-96); MONOCYTES # (AUTO) 1.6 K/uL (0.1-1.30); MONOCYTES % (AUTO) 5.3 % (2.0-12.0); NEUTROPHILS # (AUTO) 27.4 K/uL (1.8-8.9); NEUTROPHILS % (AUTO) 91.2 % (43.0-81.0); PLATELET COUNT (AUTO) 385 K/uL (150-450); RED BLOOD CELL COUNT(AUTO) 3.95 MIL/uL (4.5-6.0)
[2020-08-30 05:10] LABS: WHITE BLOOD COUNT (AUTO) 30.1 K/uL (4.3-11.0)
[2020-08-30 05:28] LABS: ALBUMIN 1.5 g/dL (3.4-5.0); BILIRUBIN,TOTAL 0.4 mg/dL (0.2-1.0); CALCIUM, SERUM 9.7 mg/dL (8.5-10.1); CREATININE 0.5 mg/dL (0.6-1.3); PHOSPHORUS 2.7 mg/dL (2.5-4.9); POTASSIUM 3.9 mmol/L (3.5-5.1); TOTAL PROTEIN, SERUM 6.3 g/dL (6.4-8.2)
[2020-08-30 06:01] LABS: BAND % (MANUAL) 10 % (0.0-5.0); LYMPHOCYTES % (MANUAL) 2 % (16-48); NEUTROPHILS % (MANUAL) 82 (42-76)
[2020-08-30 06:02] LABS: BASOPHILS % (MANUAL) 0 % (0.0-2.0); EOSINOPHILS % (MANUAL) 0 % (0-4); MONOCYTES % (MANUAL) 6 % (0-11.0)
--- NOTE | 2020-08-30 07:30 | NUR ---
ICU/RN PT IS INTUBATED ON THE VENT AC MODE.FIO2-60%,SAT O2-97%.AFEBRILE.SEDATED ON DIPRIVAN.ON NEOSYNEPHRINE DRIP.RIGHT UPPER ARM PICC LINE.F/C DRAINING WITH RO URINE.NG TUBE IN PLACE WITH JEVITY AT 30 ML/HR ,NO RESIDUAL NOTED.MULTIPLY SKIN TEARS AND SCABS AND BRUISES NOTED ALL OVER THE BODY.SUCTION PROVIDED.REPOSITION FOR COMFORT.
[2020-08-30 08:48] LABS: ABG BASE EXCESS 1.7 mmol/L; ABG OXYGEN SATURATION 92.4 % (92.0-98.5); ABG PCO2 50.5 mmHg (35.0-45.0); ABG PO2 63.5 mmHg (75.0-100.0); AaDO2 308.8 mmHg; COHb 0.5 % (0.5-1.5); MetHb 0.2 % (0.0-1.5); O2Hb 91.8 % (94.0-97.0); PEEP,BG 0 cm H2O; SITE, ABG Right Radial; VT, ABG 500 mL
[2020-08-30] MEDS: DOCUSATE SODIUM LIQ 100 MG/10 ML UDC GT SCH ×2 (09:32→17:00)
[2020-08-30] MEDS: GABAPENTIN 300 MG CAPSULE PO SCH ×3 (09:32→18:06)
[2020-08-30] MEDS: FERROUS SULFATE (325 MG) 325 MG/TAB TABLET PO SCH ×2 (09:32→18:06)
[2020-08-30] MEDS: MEGESTROL ACETATE SUSP 400 MG/10 ML UDC PO SCH ×2 (09:32→18:06)
[2020-08-30] MEDS: PANTOPRAZOLE 40 MG/PACK PACK GT SCH (09:32)
[2020-08-30] MEDS: PROSOURCE / PROSTAT (PYXIS) 30 ML UDC GT SCH (09:33)
[2020-08-30] MEDS: Z GUARD REMEDY 2 OZ OINT TP PRN (09:34)
[2020-08-30] MEDS: MINERAL OIL/PETROLATUM,WHITE 120 GM JAR TP SCH (09:34)
[2020-08-30] MEDS: CLOTRIMAZOLE 1% 15 GM TUBE TP SCH ×2 (09:35→17:00)
--- NOTE | 2020-08-30 10:40 | NUR ---
PEEP +[address] HYATT Addendum: 08/30/20 at 1049 by IRMA HARTLEY RT Amended: Links added.
--- NOTE | 2020-08-30 11:00 | NUR ---
ICU/RN SEDATION VACATION PROVIDED.DIPRIVAN DECREASED.PT IS NOT STABLE,BECAME TACHYCARDIC AND TACHYPNEIC DR HYATT NOTIFIED..
[2020-08-30] MEDS: MORPHINE SULFATE INJ 4 MG/ML DISP.SYRIN IV PRN ×2 (11:18→18:23)
[2020-08-30] MEDS: FLUCONAZOLE (100 MG) 100 MG TABLET PO SCH (11:26)
[2020-08-30] MEDS: PHENYLEPHRINE 50 MG in IV NS 0.9% 245 ML IV PRN (11:27)
[2020-08-30] MEDS ORDERED: VANCOMYCIN 1 GM in IV D5W 250 ML IV ONE (12:00)
[2020-08-30] MEDS: ACETAMINOPHEN 325 MG TABLET PO PRN ×2 (12:00→21:17)
[2020-08-30] MEDS: JEVITY 1.2 CAL 1,000 ML BOTTLE GT PRN (12:02)
--- NOTE | 2020-08-30 17:35 | NUR ---
ICU/RN DUE MEDS ARE GIVEN ORDERED.PM CARE PROVIDED.WOUND DRESSING DONE ORDERED.SUCTION PROVIDED.REPOSITION FOR COMFORT.
--- NOTE | 2020-08-30 17:50 | NUR ---
ICU/RN PT IS TACHYCARDIC AND TACHYPNEIC .MORPHINE SULFATE IV GIVEN ORDERED.
--- NOTE | 2020-08-30 19:44 | NUR ---
floriculture professor. initial assessment. received the pt rest on the bed. orally intubated. ett 7.5,lip 25,ac 28,tv 500,fio2 60%,peep 5. sat 98%. no acute distress noted. secured entrance monitor showing nsr. iv rt upper arm picc line. propofol 18mcg/kg/min,luis felipe 1mcg/kg/min, rt nare ngt intact. jevity 30ml/h. hob elevated, fc patent. urine draining. will continue to monitor vitals.
--- NOTE | 2020-08-30 19:46 | NUR ---
RCVD PT ORALLY INTUBATED W/ 7.5 ETT SECURED @ 25 CM LIP [facility] WITH THE SETTINGS OF AC 28, VT 500, FIO2 60%, PEEP 5. Q6 BREATHING TX GIVEN PER MD'S ORDER. NO ADVERSE REACTION NOTED . SUCTIONED SMALL AMOUNT OF YELLOW THICK SECRETIONS . NO RESPIRATORY DISTRESS NOTED AT THIS TIME. VENT PLUGGED INTO RED OUTLET, VENT ALARMS ON AND AUDIBLE. WILL CONTINUE TO MONITOR PT T/O SHIFT.
[2020-08-30] MEDS: VANCOMYCIN 0.75 GM in IV D5W 250 ML IV SCH (21:01)
--- NOTE | 2020-08-30 21:50 | NUR ---
agriculture instructor. bp 130/65. luis feliep titrated down. will continue to monitor
--- NOTE | 2020-08-30 21:50 | NUR ---
horticulture supervisor. pt had fever 101. tylenol given per ordered
[2020-08-31] VITALS (79 sets, daily range): BP systolic 92–136; BP diastolic 58–80
--- NOTE | 2020-08-31 01:23 | NUR ---
RN MEDICAL INPATIENT SERVICES. REMAINING SAME VENT SETTINGS TOLERATED WELL. SAT 98%. TEMPERATURE 99.6 AT THIS TIME. WILL CONTINUE TO MONITOR
[2020-08-31] MEDS: IPRATROPIUM NEB FS 0.5 MG/2.5 ML AMPUL.NEB NEB SCH ×4 (01:38→19:56)
[2020-08-31] MEDS: ALBUTEROL FS 2.5 MG/0.5 ML VIAL.NEB NEB SCH ×4 (01:38→19:56)
[2020-08-31] MEDS: PHENYLEPHRINE 50 MG in IV NS 0.9% 245 ML IV PRN (01:50)
[2020-08-31] MEDS: HYDROCORTISONE SOD SUCCINATE 100 MG/2 ML VIAL IV SCH ×3 (03:29→18:48)
[2020-08-31] MEDS: ACETAMINOPHEN 325 MG TABLET PO PRN (03:30)
[2020-08-31] MEDS: PROPOFOL 100 ML IV PRN ×4 (04:54→21:37)
[2020-08-31] MEDS: VANCOMYCIN 0.75 GM in IV D5W 250 ML IV SCH ×3 (04:55→21:37)
[2020-08-31] MEDS: MORPHINE SULFATE INJ 4 MG/ML DISP.SYRIN IV PRN (05:03)
[2020-08-31] MEDS: CEFEPIME 2 GM in IV D5W 100 ML IV SCH ×2 (05:28→16:40)
--- NOTE | 2020-08-31 05:41 | NUR ---
manager multicultural. heart rate went up 118. morphine given per ordered. at this time heart rate is110. will continue to monitor
--- NOTE | 2020-08-31 05:42 | NUR ---
LAY OUT CARPENTER. AM CARE. ORAL CARE, BED BATH GIVEN. REMAINING SAME VENT SETTING TOLERATED WELL. SAT 98%. NO ACUTE DISTRESS NOTED, PEST LOCATOR SHOWING S TACH. IV RT UPPER ARM PICC LINE. PROPOFOL 70MCG/KG/MIN, ELLEN 0.5MCG/KG/MIN. FC PATENT.NGT FEEDING TOLERATED WELL. TURN AND REPOSITION Q2H. TEMPERATURE 100.6. TYLENOL GIVEN PER ORDERED. WILL CONTINUE TO MONITOR.
--- NOTE | 2020-08-31 07:00 | NUR ---
RN NOTES RECEIVED PT ON BED, INTUBATED, SEDATED , ON DIPRIVAN AT 70MCG/KG/MIN, TOLERAING CURRENT VENT SETTING WELL, O2 SAT WNL, SOW DRAINING TO GRAVITY, TF AT 30CC/HR RUNNING, ELLEN AT .5MCG/KG/MIN INFUSING FOR BP SUPPORT, R UPPER ARM PICC LINE SITE CLEAN, DRY AND INTACT, SR UP x3, CALL LIGHT WITHIN EASY REACH, BED LOCKED AND IN LOWEST POSITION, CONTINUE TO MONITOR.
[2020-08-31 08:08] LABS: BASOPHILS % (AUTO) 0.1 % (0.0-2.0); EOSINOPHILS % (AUTO) 0.1 % (0.0-6.0); HEMATOCRIT 35 % (39-51); HEMOGLOBIN 11.1 g/dL (13.5-17.5); LYMPHOCYTES # (AUTO) 0.8 K/uL (0.8-4.8); LYMPHOCYTES % (AUTO) 3.3 % (20.0-44.0); MEAN CORPUSCULAR HGB CONC 31 g/dl (31.0-36.0); MEAN CORPUSCULAR VOLUME 89 fL (80-96); MONOCYTES # (AUTO) 1.9 K/uL (0.1-1.30); NEUTROPHILS % (AUTO) 88.5 % (43.0-81.0); PLATELET COUNT (AUTO) 337 K/uL (150-450); RED BLOOD CELL COUNT(AUTO) 3.98 MIL/uL (4.5-6.0); WHITE BLOOD COUNT (AUTO) 23.7 K/uL (4.3-11.0)
[2020-08-31 08:13] LABS: ABG BASE EXCESS 0.2 mmol/L; ABG OXYGEN SATURATION 93.5 % (92.0-98.5); ABG PCO2 56.1 mmHg (35.0-45.0); ABG PH 7.307 (7.350-7.450); ABG PO2 69.5 mmHg (75.0-100.0); AaDO2 296.6 mmHg; COHb 0.3 % (0.5-1.5); MetHb 0.3 % (0.0-1.5); O2Hb 92.9 % (94.0-97.0); SITE, ABG Right Radial
[2020-08-31] MEDS: FERROUS SULFATE (325 MG) 325 MG/TAB TABLET PO SCH ×2 (08:20→16:33)
[2020-08-31] MEDS: FLUCONAZOLE (100 MG) 100 MG TABLET PO SCH (08:20)
[2020-08-31] MEDS: MEGESTROL ACETATE SUSP 400 MG/10 ML UDC PO SCH ×2 (08:20→16:32)
[2020-08-31] MEDS: PANTOPRAZOLE 40 MG/PACK PACK GT SCH (08:20)
[2020-08-31] MEDS: GABAPENTIN 300 MG CAPSULE PO SCH ×3 (08:20→16:33)
[2020-08-31 08:21] LABS: BILIRUBIN,TOTAL 0.3 mg/dL (0.2-1.0); CALCIUM, SERUM 9.7 mg/dL (8.5-10.1); CREATININE 0.5 mg/dL (0.6-1.3); MAGNESIUM 1.9 mg/dL (1.8-2.4); PHOSPHORUS 3.3 mg/dL (2.5-4.9); POTASSIUM 4.8 mmol/L (3.5-5.1); TOTAL PROTEIN, SERUM 6.3 g/dL (6.4-8.2)
[2020-08-31] MEDS: MINERAL OIL/PETROLATUM,WHITE 120 GM JAR TP SCH (08:23)
[2020-08-31] MEDS: CLOTRIMAZOLE 1% 15 GM TUBE TP SCH ×2 (08:23→16:41)
[2020-08-31] MEDS: PROSOURCE / PROSTAT (PYXIS) 30 ML UDC GT SCH (08:24)
[2020-08-31] MEDS: DOCUSATE SODIUM LIQ 100 MG/10 ML UDC GT SCH ×2 (08:24→16:41)
[2020-08-31 08:30] LABS: ALBUMIN 1.4 g/dL (3.4-5.0)
--- NOTE | 2020-08-31 10:00 | NUR ---
RN NOTES DR HYATT NOTIFIED REGARDING ABG RESULTS , NEW ORDER RECEIVED , CONTINUE TO MONITOR.
--- NOTE | 2020-08-31 14:00 | NUR ---
RN NOTES ETT CARE DONE, TOLERATING TF WELL, CONTINUE TO MONITOR
[2020-08-31] MEDS: JEVITY 1.2 CAL 1,000 ML BOTTLE GT PRN (17:15)
--- NOTE | 2020-08-31 18:00 | NUR ---
RN NOTES PT REMAINS INTUBATED AND SEDATED, OFF ELLEN DRIP , BP STABLE , DIPRIVAN AT 45 MCG/KG/MIN RUNNING, ETT SUCTIONING DONE , NO SIGNIFICANT CHANGES NOTED ON THIS SHIFT , WILL ENDORSE TO DISASTER RECOVERY SPECIALIST NURSE FOR CONTINUITY OF CARE.
--- NOTE | 2020-08-31 19:40 | NUR ---
STENCILER. INITIAL ASSESSMENT. RECEIVED THE PT REST ON THE BED. ORALLY INTUBATED. SEDATED WITH PROPOFOL ETT 7.5,LIP 25CMS, AC 28,TV 500,FIO2 50%, PEEP 5. SAT 97%. LAB ANALYST SHOWING S TACH. IV RT UPPER ARM PICC LINE. PROPOFOL 45MCGMCG/KG/MIN, NGT INTACT. JEVITY 30ML/H, HOB ELEVATED. FC PATENT. WILL CONTINUE TO MONITOR VITALS.
[2020-08-31] MEDS: IV NS 0.9% 250 ML IV PRN (21:38)
[2020-09-01] VITALS (56 sets, daily range): BP systolic 79–155; BP diastolic 40–81
[2020-09-01] MEDS: ACETAMINOPHEN 325 MG TABLET PO PRN ×2 (00:47→08:29)
--- NOTE | 2020-09-01 00:50 | NUR ---
high school agriculture teacher. remaining same vent setting tolerated well. will continue to monitor
[2020-09-01] MEDS: IPRATROPIUM NEB FS 0.5 MG/2.5 ML AMPUL.NEB NEB SCH ×4 (01:31→19:48)
[2020-09-01] MEDS: ALBUTEROL FS 2.5 MG/0.5 ML VIAL.NEB NEB SCH ×4 (01:31→19:48)
--- NOTE | 2020-09-01 03:51 | NUR ---
staff nurse icu resource team am care given. remaining same vent settings on, ngt feeding tolerated well. fc patent, urine draining. hob elevated, turn and reposition q2h. will continue to monitor vitals.
[2020-09-01] MEDS: VANCOMYCIN 0.75 GM in IV D5W 250 ML IV SCH ×3 (03:59→20:53)
[2020-09-01] MEDS: HYDROCORTISONE SOD SUCCINATE 100 MG/2 ML VIAL IV SCH ×3 (03:59→18:24)
[2020-09-01] MEDS: PROPOFOL 100 ML IV PRN ×3 (04:00→19:02)
[2020-09-01 04:31] LABS: BASOPHILS # (AUTO) 0.1 K/uL (0.0-0.2); BASOPHILS % (AUTO) 0.3 % (0.0-2.0); HEMATOCRIT 34 % (39-51); HEMOGLOBIN 10.6 g/dL (13.5-17.5); LYMPHOCYTES # (AUTO) 0.9 K/uL (0.8-4.8); LYMPHOCYTES % (AUTO) 4.8 % (20.0-44.0); MEAN CORPUSCULAR HGB CONC 31 g/dl (31.0-36.0); MEAN CORPUSCULAR VOLUME 89 fL (80-96); MONOCYTES # (AUTO) 1.4 K/uL (0.1-1.30); MONOCYTES % (AUTO) 7.6 % (2.0-12.0); NEUTROPHILS # (AUTO) 16.2 K/uL (1.8-8.9); NEUTROPHILS % (AUTO) 87.3 % (43.0-81.0); PLATELET COUNT (AUTO) 271 K/uL (150-450); RED BLOOD CELL COUNT(AUTO) 3.79 MIL/uL (4.5-6.0); WHITE BLOOD COUNT (AUTO) 18.5 K/uL (4.3-11.0)
[2020-09-01 04:44] LABS: BILIRUBIN,TOTAL 0.3 mg/dL (0.2-1.0); CALCIUM, SERUM 9.7 mg/dL (8.5-10.1); CREATININE 0.4 mg/dL (0.6-1.3); MAGNESIUM 1.9 mg/dL (1.8-2.4); PHOSPHORUS 2.8 mg/dL (2.5-4.9); POTASSIUM 4.4 mmol/L (3.5-5.1); TOTAL PROTEIN, SERUM 6.1 g/dL (6.4-8.2)
[2020-09-01 05:06] LABS: ALBUMIN 1.4 g/dL (3.4-5.0)
[2020-09-01] MEDS: CEFEPIME 2 GM in IV D5W 100 ML IV SCH ×2 (05:33→16:39)
--- NOTE | 2020-09-01 07:05 | NUR ---
RN NOTES RECEIVED PT ON BED, INTUBATED, SEDATED , ON DIPRIVAN AT 30MCG/KG/MIN, TOLERAING CURRENT VENT SETTING WELL, O2 SAT WNL, SOW DRAINING TO GRAVITY, TF AT 30CC/HR RUNNING, NO RESIDUAL NOTED, R UPPER ARM PICC LINE SITE CLEAN, DRY AND INTACT, SR UP x3, CALL LIGHT WITHIN EASY REACH, BED LOCKED AND IN LOWEST POSITION, CONTINUE TO MONITOR.
[2020-09-01 07:59] LABS: ABG BASE EXCESS 2.1 mmol/L; ABG OXYGEN SATURATION 97.2 % (92.0-98.5); ABG PCO2 44.6 mmHg (35.0-45.0); ABG PH 7.403 (7.350-7.450); ABG PO2 88.5 mmHg (75.0-100.0); AaDO2 217.8 mmHg; COHb 0.2 % (0.5-1.5); SITE, ABG Right Radial
[2020-09-01] MEDS: MEGESTROL ACETATE SUSP 400 MG/10 ML UDC PO SCH ×2 (08:10→16:36)
[2020-09-01] MEDS: FLUCONAZOLE (100 MG) 100 MG TABLET PO SCH (08:10)
[2020-09-01] MEDS: DOCUSATE SODIUM LIQ 100 MG/10 ML UDC GT SCH ×2 (08:10→16:37)
[2020-09-01] MEDS: FERROUS SULFATE (325 MG) 325 MG/TAB TABLET PO SCH ×2 (08:10→16:36)
[2020-09-01] MEDS: PANTOPRAZOLE 40 MG/PACK PACK GT SCH (08:10)
[2020-09-01] MEDS: GABAPENTIN 300 MG CAPSULE PO SCH ×3 (08:10→16:36)
[2020-09-01] MEDS: PROSOURCE / PROSTAT (PYXIS) 30 ML UDC GT SCH (08:11)
[2020-09-01] MEDS: MINERAL OIL/PETROLATUM,WHITE 120 GM JAR TP SCH (08:12)
[2020-09-01] MEDS: CLOTRIMAZOLE 1% 15 GM TUBE TP SCH ×2 (08:13→16:37)
--- NOTE | 2020-09-01 15:50 | NUR ---
RN NOTES AT THE END OF THE HEMODIALYSIS, PT'S HR DROPPED TO 50'S , O2 SAT IN 60'S , HD STOPPED . 900 CC OUTPUT FROM HD PER HD NURSE OBTAINED . VSS BACK TO NORMAL SOON HD STOPPED . CONTINUE TO MONITOR Addendum: 09/01/20 at 1604 by LILI MOSCOSO RN PLEASE DISREGARD ABOVE NOTED, CHARTED ON WRONG PT
[2020-09-01] MEDS: JEVITY 1.2 CAL 1,000 ML BOTTLE GT PRN (17:43)
--- NOTE | 2020-09-01 18:31 | NUR ---
RN NOTES PT REMAINS INTUBATED AND SEDATED, on DIPRIVAN AT 45 MCG/KG/MIN , ETT SUCTIONING DONE , NO SIGNIFICANT CHANGES NOTED ON THIS SHIFT , WILL ENDORSE TO MANUFACTURING PLANT TECHNICIAN NURSE FOR CONTINUITY OF CARE.
--- NOTE | 2020-09-01 19:30 | NUR ---
RN NOTES RECEIVED PATIENT ORALLY INTUBATED. WITH ETT 7.5 AND 25 CM AT LIPLINE WITH VENT SETTING AC 28 TV 500 FIO2 40% AND PEEP5 SEDATED WITH DIPRIVAN AT 45 MCG/KG/MIN WILL TITRATED PROTOCOL ORDERED. ST ON MONITOR. NO ACUTE RESPIRATORY DISTRESS. SATURATION 97%. AFEBRILE. . IV SITE ON LFA AND LAURETN PICC LINE INTACT AND PATENT WITH PROPOFOL ONGOING.. [id number] @ 250/Q4H PATENCY CHECKED AND TOLERATED WELL. SOW CATH DRAINED WELL WITH GOOD URINE OUTPUT. KEPT PT CLEAN AND COMFORTABLE IN BED. TURN AND REPOSITION PT COMFORTABLE.
[2020-09-02] VITALS (46 sets, daily range): BP systolic 86–177; BP diastolic 39–102
[2020-09-02] MEDS: ALBUTEROL FS 2.5 MG/0.5 ML VIAL.NEB NEB SCH ×4 (01:37→19:32)
[2020-09-02] MEDS: IPRATROPIUM NEB FS 0.5 MG/2.5 ML AMPUL.NEB NEB SCH ×4 (01:37→19:32)
[2020-09-02] MEDS: PROPOFOL 100 ML IV PRN ×5 (02:18→23:10)
[2020-09-02] MEDS: VANCOMYCIN 0.75 GM in IV D5W 250 ML IV SCH ×3 (03:19→20:27)
[2020-09-02] MEDS: HYDROCORTISONE SOD SUCCINATE 100 MG/2 ML VIAL IV SCH ×3 (03:19→20:27)
--- NOTE | 2020-09-02 04:00 | NUR ---
RN NOTES BEDBATH DONE AND TOLERATED WELL, INCREASE PROPOFOL PROTOCOL ORDER DUE TO SLIGHT AGITATION. WITH LARGE BMX1.
[2020-09-02 04:20] LABS: BASOPHILS % (AUTO) 0.2 % (0.0-2.0); HEMATOCRIT 33 % (39-51); HEMOGLOBIN 10.6 g/dL (13.5-17.5); LYMPHOCYTES # (AUTO) 0.8 K/uL (0.8-4.8); LYMPHOCYTES % (AUTO) 4.2 % (20.0-44.0); MEAN CORPUSCULAR HGB CONC 32 g/dl (31.0-36.0); MEAN CORPUSCULAR VOLUME 89 fL (80-96); MONOCYTES % (AUTO) 4.8 % (2.0-12.0); NEUTROPHILS # (AUTO) 18.3 K/uL (1.8-8.9); NEUTROPHILS % (AUTO) 90.8 % (43.0-81.0); PLATELET COUNT (AUTO) 314 K/uL (150-450); RED BLOOD CELL COUNT(AUTO) 3.74 MIL/uL (4.5-6.0); WHITE BLOOD COUNT (AUTO) 20.1 K/uL (4.3-11.0)
[2020-09-02] MEDS: CEFEPIME 2 GM in IV D5W 100 ML IV SCH ×2 (04:32→17:22)
[2020-09-02 04:47] LABS: BILIRUBIN,TOTAL 0.2 mg/dL (0.2-1.0); CALCIUM, SERUM 9.4 mg/dL (8.5-10.1); CREATININE 0.4 mg/dL (0.6-1.3); MAGNESIUM 2.1 mg/dL (1.8-2.4); PHOSPHORUS 3.1 mg/dL (2.5-4.9); POTASSIUM 4.4 mmol/L (3.5-5.1); TOTAL PROTEIN, SERUM 5.9 g/dL (6.4-8.2)
[2020-09-02 04:54] LABS: ALBUMIN 1.3 g/dL (3.4-5.0)
--- NOTE | 2020-09-02 06:18 | NUR ---
RN NOTES NO SIGNIFICANT CHANGES THROUGHOUT THE SHIFT. ETT AND VENT SETTING TOLERATED WELL. A SLIGHT AGITATION NOTED AT ONCE DURING CLEANING. REMAINED SEDATED. AFEBRILE. VSS. CONTINUE WITH PROPOFOL FOR SEDATION PROTOCOL ORDERED FOLLOWS. IV KEPT INTACT AND PATENT. NGTF TOLERATED WELL WITH HOB ELEVATED. DRESSING CHANGED. ALBUMIN 1.3REPORTED TO MATERIALS PLANNING MANAGER [facility] WITH NEW ORDER NOTED AND CARRIED OUR ORDER. KEPT PT CLEAN AND COMFORTABLE IN BED .CONTINUE TO TURN AND REPOSITION, AND REDUCED PRESSURE TO BONY PROMINENCE AREA. WILL ENDORSED CONTINUITY OF CARE TO AM NURSE.
--- NOTE | 2020-09-02 07:28 | NUR ---
WOUND CARE CONSULT: PT PRESENTS WITH MULTIPLE SKIN ISSUES INCLUDING DRY ABRASION TO POSTERIOR SCALP, SCARRING AND FRAGILE SKIN, PRESENT ON ADMISSION. PT NOTED TO HAVE INTACT DEEP TISSUE INJURIES TO SACRUM(SURROUNDING SCARRING) AND TO LEFT HIP. GENERALIZED EDEMA NOW NOTED ALSO. PT NOTED TO HAVE MULTIPLE CO-MORBIDITIES INCLUDING CACHEXIA AND CANCER, RESPIRATORY FAILURE (CURRENTLY INTUBATED). DUE TO MULTIPLE CO-MORBIDITIES, FURTHER SKIN BREAKDOWN MAY BE UNAVOIDABLE. DISCUSSED SKIN PROTECTION AND WOUND CARE WITH NURSING STAFF. FIRST STEP LOW AIRLOSS MATTRESS IS ON ORDER. MD IN AGREEMENT WITH PLAN OF CARE. Addendum: 09/02/20 at 0731 by ANA PAULA WANG [id number] Amended: Links added.
--- NOTE | 2020-09-02 07:44 | NUR ---
RN NOTES RECEIVED PATIENT EET/ MECHANICAL VENT DEPENDENT, FIO2-40%, NO ACUTE RESPIRATORY DISTRESS, PATIENT TOLERATING EET SETTING WELL, ON BEDSIDE MONITOR SHOWS ST-103. CHECKED RESIDUAL 150ML, HOLD NGT FEEDING, KEEP HOB ELEVATED. PLAN IS WEANING FROM VENT, TITRATED DOWN DIPRIVAN PER PROTOCOL. . SEEN PATIENT VIA WOUND NURSE. PATIENT NEED SPECIAL MATTRESS. SOW DRAINING VIA GRAVITY, ASSIST TURN AND REPOSTION Q 2 HR. SUCTION, MOUTH CARE DONE. ASSIST TURN AND REPOSTION Q 2 HR. WILL MONITORING.AND
[2020-09-02] MEDS: GABAPENTIN 300 MG CAPSULE PO SCH ×3 (08:53→17:22)
[2020-09-02] MEDS: PROSOURCE / PROSTAT (PYXIS) 30 ML UDC GT SCH (08:53)
[2020-09-02] MEDS: PANTOPRAZOLE 40 MG/PACK PACK GT SCH (08:53)
[2020-09-02] MEDS: FERROUS SULFATE (325 MG) 325 MG/TAB TABLET PO SCH ×2 (08:53→17:22)
[2020-09-02] MEDS: FLUCONAZOLE (100 MG) 100 MG TABLET PO SCH (08:53)
[2020-09-02] MEDS: DOCUSATE SODIUM LIQ 100 MG/10 ML UDC GT SCH ×2 (08:53→17:22)
[2020-09-02] MEDS: MEGESTROL ACETATE SUSP 400 MG/10 ML UDC PO SCH ×2 (08:53→17:22)
[2020-09-02] MEDS: CLOTRIMAZOLE 1% 15 GM TUBE TP SCH ×2 (08:54→17:20)
[2020-09-02] MEDS: MINERAL OIL/PETROLATUM,WHITE 120 GM JAR TP SCH (08:54)
--- NOTE | 2020-09-02 09:13 | NUR ---
RN NOTES HELD DIPRIVAN INFUSION PER DR HYATT'S ORDER. PATIENT ON SIMV 11/07 VIA RT, AT THIS TIME. CALM AND COOPERATIVE, V/S STABLE, NO ACUTE RESPIRATORY DISTRESS, ABG WILL BE CHECKING VIA RT ON ONE HR. WILL MONITORING.
--- NOTE | 2020-09-02 09:45 | NUR ---
RN NOTES ABG TAKEN VIA RT.
[2020-09-02 10:04] LABS: ABG BASE EXCESS 4.9 mmol/L; ABG PCO2 46.6 mmHg (35.0-45.0); ABG PH 7.428 (7.350-7.450); ABG PO2 59.3 mmHg (75.0-100.0); AaDO2 172.3 mmHg; COHb 0.6 % (0.5-1.5); MetHb 0.1 % (0.0-1.5); O2Hb 91.4 % (94.0-97.0); SITE, ABG Right Radial
--- NOTE | 2020-09-02 10:15 | NUR ---
RN NOTES ACCORDING ABG RESULT PATIENT FAIL WEANING, PER Dr HYATT RESTART SEDATION, AND SIS. RT NOTIFIED, ORDER TAKEN AND CARRIED OUT.
--- NOTE | 2020-09-02 12:00 | NUR ---
rn notes patient am care done, suction, no acute respiratory distress. assist turn and reposition q 2 hr. no residual, running Jevity 1.2 @30ml/hr. keep hob elevated.
[2020-09-02] MEDS: IV NS 0.9% 250 ML IV PRN (14:31)
[2020-09-02] MEDS: JEVITY 1.2 CAL 1,000 ML BOTTLE GT PRN (14:55)
--- NOTE | 2020-09-02 18:30 | NUR ---
rn notes DUE MEDICATION ADMINISTERED, SUCTION, PM CARE DONE, PATIENT SPECIAL MATTRESS, INFUSING DIPRIVAN 50MCG/KG/HR INTACT, AND TKO AT RIGHT UA INTACT, PATIENT HAS NO ACUTE RESPIRATORY DISTRESS, SOW DRAINING VIA GRAVITY. RUNNING JEVITY 1.2 @30 ML/HR . ENDORSED ONCOMING NURSE FOLLOW PLAN OF CARE.
--- NOTE | 2020-09-02 19:30 | NUR ---
RN NOTES RECEIVED PATIENT ORALLY INTUBATED. W/ ETT 7.5 AND 25 CM AT LIPLINE FAILED TO WEAN TODAY IN AM. VENT SETTING AC 28 TV 500 FIO2 40% AND PEEP 5 CONTINUE. SEDATED WITH DIPRIVAN AT 50 MCG/KG/MIN. ST ON MONITOR. NO ACUTE RESPIRATORY DISTRESS. NO SOB SATURATION 98%. AFEBRILE. . IV SITE ON LFA AND LAURENT PICC LINE INTACT AND PATENT WITH PROPOFOL ONGOING.. H20 FLUSHED @ 250/Q4H PATENCY CHECKED AND TOLERATED WELL. SOW CATH DRAINED WELL WITH GOOD URINE OUTPUT. KEPT PT CLEAN AND COMFORTABLE IN BED. TURN AND REPOSITION PT COMFORTABLE.
--- NOTE | 2020-09-02 21:16 | NUR ---
Patient left via gurney in stable condition with his belongings only cell phone.Accompanied by KERRI WARE PARAMEDICS Camila and Luís Bella and patient .Discharge papers given to Camila. Addendum: 09/02/20 at 2122 by VAISHNAVI BELLA RN Please disregard above notes.Wrong Entry.
[2020-09-02] MEDS ORDERED: MICAFUNGIN SODIUM 150 MG in IV NS 0.9% 100 ML IV SCH (21:30)
[2020-09-02] MEDS ORDERED: MICAFUNGIN SODIUM 100 MG VIAL IV ONE (22:18)
[2020-09-02] MEDS: MICAFUNGIN SODIUM 100 MG in IV NS 0.9% 100 ML IV SCH (23:41)
[2020-09-03] VITALS (65 sets, daily range): BP systolic 96–173; BP diastolic 51–111
[2020-09-03] MEDS: IPRATROPIUM NEB FS 0.5 MG/2.5 ML AMPUL.NEB NEB SCH ×4 (01:18→19:43)
[2020-09-03] MEDS: ALBUTEROL FS 2.5 MG/0.5 ML VIAL.NEB NEB SCH ×4 (01:19→19:43)
[2020-09-03] MEDS: HYDROCORTISONE SOD SUCCINATE 100 MG/2 ML VIAL IV SCH ×3 (03:54→18:25)
[2020-09-03] MEDS: PROPOFOL 100 ML IV PRN (03:55)
[2020-09-03 04:53] LABS: CALCIUM, SERUM 9.1 mg/dL (8.5-10.1); CREATININE 0.4 mg/dL (0.6-1.3)
[2020-09-03] MEDS: CEFEPIME 2 GM in IV D5W 100 ML IV SCH ×2 (05:01→16:11)
--- NOTE | 2020-09-03 07:17 | NUR ---
RN NOTES NO SIGNIFICANT CHANGE OF CONDITION TROUGHOUT THE SHIFT. ETT AND VENT SETTING THE SAME AND TOLERATED WELL. ALERT AND RESPONSIVE TO PAIN AND TACTILE STIMULI. REMAINED SEDATED WITH DIPRIVAN PROTOCOL ORDERED. AFEBRILE. VSS. ST ON MONITOR. NO FACIAL COMPLAIN OF PAIN. CONTINUE WITH IV ATB TOLERATED. NGTF TOELRATED WITH WATER FLUSHED ORDERED. SOW CATH DRAINED WITH GOOD URINE OUTPUT. T/R Q2H AND PRN. WILL ENDORSE CONTINUITY OF CARE TO AM NURSE.
--- NOTE | 2020-09-03 08:00 | NUR ---
rn notes GET PATIENT EET VENT SETTING, ON SEDATION OF DIPRIVAN 50MCG/KG/HR. GET ORDER FROM DR HYATT SEDATION VACATION, ORDER TAKEN AND CARRIED OUT. RT NOTIFIE FOR VENT CHANGES PEEP 5, PSV-15, SIMV MODE, RATE 4. PATIENT HAS NO ACUTE RESPIRATORY DISTRESS, ASSIST TURN AND REPOSTION Q 2 HR. WILL MONITORING.
--- NOTE | 2020-09-03 09:30 | NUR ---
RN NOTES ABG TEST WITHIN 45 MINS, RT AWARE OF.
--- NOTE | 2020-09-03 09:35 | NUR ---
vent changes below for weaning trial per dr. stallworth: simv 4 vt 500 ps 15 fio2 40% peep +5 Addendum: 09/03/20 at 0953 by IRMA HARTLEY RT Amended: Links added.
[2020-09-03] MEDS: FERROUS SULFATE (325 MG) 325 MG/TAB TABLET PO SCH ×2 (09:41→16:11)
[2020-09-03] MEDS: GABAPENTIN 300 MG CAPSULE PO SCH ×3 (09:41→16:11)
[2020-09-03] MEDS: DOCUSATE SODIUM LIQ 100 MG/10 ML UDC GT SCH ×2 (09:41→16:10)
[2020-09-03] MEDS: PANTOPRAZOLE 40 MG/PACK PACK GT SCH (09:41)
[2020-09-03] MEDS: MEGESTROL ACETATE SUSP 400 MG/10 ML UDC PO SCH ×2 (09:41→16:11)
[2020-09-03] MEDS: CLOTRIMAZOLE 1% 15 GM TUBE TP SCH ×2 (09:42→16:11)
[2020-09-03] MEDS: MINERAL OIL/PETROLATUM,WHITE 120 GM JAR TP SCH (09:42)
[2020-09-03] MEDS: PROSOURCE / PROSTAT (PYXIS) 30 ML UDC GT SCH (09:43)
--- NOTE | 2020-09-03 10:40 | NUR ---
RN NOTES ABG TAKEN VIA RT.
[2020-09-03 10:43] LABS: ABG OXYGEN SATURATION 93.4 % (92.0-98.5); ABG PCO2 43.9 mmHg (35.0-45.0); ABG PH 7.461 (7.350-7.450); AaDO2 172.7 mmHg; COHb 0.3 % (0.5-1.5); MetHb 0.2 % (0.0-1.5); O2Hb 92.9 % (94.0-97.0); PEEP,BG 5 cm H2O; SITE, ABG Right Radial; VENT MODE, BG SIMV / PS 15; VT, ABG 500 mL
--- NOTE | 2020-09-03 11:20 | NUR ---
RN NOTES PATIENT GET EXTUBATED AT THIS TIME ACCORDING ABG RESULT PER DR GALLOWAY ORDER. PATIENT PLACED HIGH FLOW NASAL CANULA 60L FLOW AND 100 % O2 SATURATION. WILL RECHECK ABG ON ONE HR. SUCTION, MOUTH CARE DOEN, RUNNING NGT FEEDING @ 30ML/HR , FLASHED 250 ML OF WATER Q4 HR. SOW DRAINING VIA GRAVITY.
--- NOTE | 2020-09-03 11:20 | NUR ---
pt. extubated and place into high flow nasal cannula @ 60 l flow and 100% fio2 per dr. stallworth. Addendum: 09/03/20 at 1128 by IRMA HARTLEY RT Amended: Links added.
[2020-09-03 13:41] LABS: ABG BASE EXCESS 7.2 mmol/L; ABG OXYGEN SATURATION 99.5 % (92.0-98.5); ABG PCO2 50.1 mmHg (35.0-45.0); ABG PH 7.432 (7.350-7.450); ABG PO2 243.2 mmHg (75.0-100.0); AaDO2 419.7 mmHg; COHb 0.3 % (0.5-1.5); O2Hb 99.2 % (94.0-97.0); SITE, ABG Right Radial; VENT MODE, BG 60 l/m flow / 100%fio2
--- NOTE | 2020-09-03 13:52 | NUR ---
fio2 titrate down from 100% to 50% fio2 due to 243 pao2 and 100% spo2. rn notified. Addendum: 09/03/20 at 1353 by IRMA HARTLEY RT Amended: Links added.
--- NOTE | 2020-09-03 14:00 | NUR ---
RN NOTES ACCORDIG ABG RESULT DECREASED HIGH FLOW NC 40% PER DR GALLOWAY ORDER. WILL MONITORING.
[2020-09-03] MEDS: IV NS 0.9% 250 ML IV PRN (15:33)
[2020-09-03] MEDS: JEVITY 1.2 CAL 1,000 ML BOTTLE GT PRN (15:45)
[2020-09-03] MEDS: MORPHINE SULFATE INJ 2 MG/ML DISP.SYRIN IV PRN ×2 (16:12→22:41)
--- NOTE | 2020-09-03 16:12 | NUR ---
rn notes Patient was complaining of generalized pain 7/10 per pain scale. Administered Morphine sulfate 2mg/ml iv push prn. bp 136/67, p-97. also administered due medication. will monitoring.
--- NOTE | 2020-09-03 18:54 | NUR ---
RN NOTES MEDICATION WERE ADMINISTERED FOR PAIN EFFECTIBE. DUE MEDICATION ADMINISTERED, PATIENT WATCHING TV, ASSIST TURN AND REPOSTION Q 2 HR. ASSIST TURN AND REPOSTION Q 2 HR. ENDORSED ONCOMING NURSE FOLLOW PLAN OF CARE.
--- NOTE | 2020-09-03 20:00 | NUR ---
RN NOTE RECEIVED PT IN BED A/A/O X3, ON HIGH FLOW NC FIO2 40% SATING 99%, ON NG TUBE FEEDING 30 ML/HR NO RESIDUAL NOTED. CHECK FOR NG TUBE REPLACEMENT. WILL CONTINUE WITH PLAN OF CARE.
[2020-09-03] MEDS: MICAFUNGIN SODIUM 100 MG in IV NS 0.9% 100 ML IV SCH (20:55)
[2020-09-03] MEDS ORDERED: MICAFUNGIN SODIUM 100 MG in IV NS 0.9% 100 ML IV SCH (21:00)
[2020-09-04] VITALS (34 sets, daily range): BP systolic 101–156; BP diastolic 47–110
[2020-09-04] MEDS: ALBUTEROL FS 2.5 MG/0.5 ML VIAL.NEB NEB SCH ×4 (01:29→19:58)
[2020-09-04] MEDS: IPRATROPIUM NEB FS 0.5 MG/2.5 ML AMPUL.NEB NEB SCH ×4 (01:29→19:58)
[2020-09-04] MEDS: HYDROCORTISONE SOD SUCCINATE 100 MG/2 ML VIAL IV SCH ×3 (03:11→18:07)
[2020-09-04 04:51] LABS: CALCIUM, SERUM 8.9 mg/dL (8.5-10.1); CREATININE 0.5 mg/dL (0.6-1.3); POTASSIUM 3.6 mmol/L (3.5-5.1)
[2020-09-04] MEDS: CEFTRIAXONE 2 G in IV D5W 100 ML IV SCH (05:08)
--- NOTE | 2020-09-04 05:30 | NUR ---
RT NOTE NASOTRACHEAL SUCTION PERFORMED DUE TO LOW SPO2. MODERATE THICK WHITE/YELLOW SECRETIONS NOTED. PT TOLERATING WELL. RN OREN AWARE.
--- NOTE | 2020-09-04 07:10 | NUR ---
RN NOTE REPORT GIVEN TO ONCOMING SHIFT FOR RUSS.
--- NOTE | 2020-09-04 08:56 | NUR ---
FIO2 TITRATE DOWN FROM 70% TO 50%. SPO2 94- 95% NO INCREASE WORK OF BREATHING NOTED Addendum: 09/04/20 at 0858 by IRMA HARTLEY RT Amended: Links added.
[2020-09-04] MEDS: GABAPENTIN 300 MG CAPSULE PO SCH ×3 (09:24→17:21)
[2020-09-04] MEDS: PROSOURCE / PROSTAT (PYXIS) 30 ML UDC GT SCH (09:24)
[2020-09-04] MEDS: MINERAL OIL/PETROLATUM,WHITE 120 GM JAR TP SCH (09:24)
[2020-09-04] MEDS: PANTOPRAZOLE 40 MG/PACK PACK GT SCH (09:24)
[2020-09-04] MEDS: MEGESTROL ACETATE SUSP 400 MG/10 ML UDC PO SCH ×2 (09:24→17:21)
[2020-09-04] MEDS: FERROUS SULFATE (325 MG) 325 MG/TAB TABLET PO SCH ×2 (09:24→17:21)
[2020-09-04] MEDS: CLOTRIMAZOLE 1% 15 GM TUBE TP SCH ×2 (09:24→17:22)
[2020-09-04] MEDS: DOCUSATE SODIUM LIQ 100 MG/10 ML UDC GT SCH ×2 (09:24→17:21)
--- NOTE | 2020-09-04 10:58 | NUR ---
RN NOTE 0715: Received patient awake, A/Ox3, noted with hard of hearing. On HFNC 70% FIO2, sat 94-95%. NGT intact, feeding tolerated, kept HOB elevated. SR on the monitor. LEATHER SCRAPER restraints on for safety. LAURENT PICC intact, on TKO. Noted with lot of oral secretions. 0900: S/E by Dr. Menezes, continue titrating O2 supplement as able. 0930: S/E by PT,per Pt,unable to sit on the edge of bed, and needed max assist at this time. 1050: S/E by Jair BEASLEY, aware for patient feeling hungry and wanting coffee, awaiting swallow eval.
--- NOTE | 2020-09-04 17:33 | NUR ---
RN NOTE Noted with left 1st toe discoloration, with pulse, able to move and witn sensory, informed Jair MAIL CLERK and obtained order for wound care consult.
--- NOTE | 2020-09-04 19:30 | NUR ---
RN NOTES Received patient in bed awake alert oriented x4 Addendum: 09/05/20 at 0126 by BRENNA SEYMOUR RN Pt is AOX4,breathing normal no sob noted, Continues on high flow saturating 97% tolerating well. Denies any pain or discomfort. IV sites intact fluid running well. NGT intact Jevity running at 30L/min tolerating well no residual noted. F/C intact dark urine running via gravity. All safety measures in place, bed in low and locked position. Call light within reach. Will cont to monitor for epifanio.
--- NOTE | 2020-09-04 20:12 | NUR ---
RCVD PT ON HIGH FLOW NASAL CANNULA 60L, 50% FIO2 . PT IS ALERT ,AWAKE AND ORIENTED. Q6 BREATHING TX GIVEN PER MD'S ORDER. NO ADVERSE REACTION NOTED. NO RESPIRATORY DISTRESS NOTED AT THIS TIME. WILL CONTINUE TO MONITOR PT T/O SHIFT.
[2020-09-04] MEDS: MICAFUNGIN SODIUM 100 MG in IV NS 0.9% 100 ML IV SCH (21:02)
[2020-09-04] MEDS: MORPHINE SULFATE INJ 2 MG/ML DISP.SYRIN IV PRN (22:25)
[2020-09-04] MEDS: IV NS 0.9% 250 ML IV PRN (22:27)
[2020-09-05] VITALS (26 sets, daily range): BP systolic 107–144; BP diastolic 62–99
[2020-09-05] MEDS: ALBUTEROL FS 2.5 MG/0.5 ML VIAL.NEB NEB SCH ×4 (01:19→19:49)
[2020-09-05] MEDS: IPRATROPIUM NEB FS 0.5 MG/2.5 ML AMPUL.NEB NEB SCH ×4 (01:19→19:49)
[2020-09-05] MEDS: HYDROCORTISONE SOD SUCCINATE 100 MG/2 ML VIAL IV SCH ×3 (03:06→18:06)
[2020-09-05] MEDS: JEVITY 1.2 CAL 1,000 ML BOTTLE GT PRN (04:16)
[2020-09-05 04:42] LABS: CALCIUM, SERUM 9.1 mg/dL (8.5-10.1); CREATININE 0.5 mg/dL (0.6-1.3); MAGNESIUM 2.4 mg/dL (1.8-2.4); PHOSPHORUS 3.1 mg/dL (2.5-4.9); POTASSIUM 3.7 mmol/L (3.5-5.1)
[2020-09-05] MEDS: CEFTRIAXONE 2 G in IV D5W 100 ML IV SCH (05:15)
[2020-09-05] MEDS: MORPHINE SULFATE INJ 2 MG/ML DISP.SYRIN IV PRN ×3 (05:27→21:42)
--- NOTE | 2020-09-05 07:11 | NUR ---
RN NOTES No changes noted during shift. Vital signs remained WNL. No s/s of acute distress noted. continues with high flow saturating 96%. Denies any pain at this time. During shift patient was given PRN Morphine x2 for general body aches, noted to be effective tolerated well. IV's intact TKO+antibiotics running well. Kept clean dry and comfortable. F/C intact michael color urine running via gravity. All safety measures in place,call light within reach. will endorse to am nurse for epifanio.
--- NOTE | 2020-09-05 07:39 | NUR ---
WOUND CARE CONSULT: PT SEEN FOR LEFT GREAT TOE PURPLE COLOR. PULSES ARE DIFFICULT TO PALPATE IN GENERAL AND THERE IS EDEMA TO ANKLES. RECOMMEND DPM CONSULT. DR RICHTER NOTIFIED OF CONSULT REQUEST. IN AGREEMENT WITH PLAN OF CARE. Addendum: 09/05/20 at 0740 by ANA PAULA WANG WNDNU Amended: Links added.
[2020-09-05] MEDS: DOCUSATE SODIUM LIQ 100 MG/10 ML UDC GT SCH ×2 (09:17→17:00)
[2020-09-05] MEDS: MEGESTROL ACETATE SUSP 400 MG/10 ML UDC PO SCH ×2 (09:17→17:03)
[2020-09-05] MEDS: FERROUS SULFATE (325 MG) 325 MG/TAB TABLET PO SCH ×2 (09:17→17:03)
[2020-09-05] MEDS: PANTOPRAZOLE 40 MG/PACK PACK GT SCH (09:17)
[2020-09-05] MEDS: PROSOURCE / PROSTAT (PYXIS) 30 ML UDC GT SCH (09:17)
[2020-09-05] MEDS: GABAPENTIN 300 MG CAPSULE PO SCH ×3 (09:17→17:03)
[2020-09-05] MEDS: CLOTRIMAZOLE 1% 15 GM TUBE TP SCH ×2 (09:18→17:03)
[2020-09-05] MEDS: MINERAL OIL/PETROLATUM,WHITE 120 GM JAR TP SCH (09:18)
--- NOTE | 2020-09-05 11:15 | NUR ---
RN NOTE 0715: Received patient awake, A/Ox3 but noted with confusion AEB asking to get her , reoriented patient. On 1LPM via NC, placed on room air, will continue to monitor, sat 95% at this time. With LAURENT midline intact. IVF infusing as ordered. Scott cath intact, noted with good UOP amount, clear pale yellow. 0900: S/E by Dr. Leyva and Dr. Mueller, awaiting CT chest. 0950: Went to CT chest with contrast, patient tolerated well. 1100: Transferred patient to [facility] via wheelchair, no significant changes noted. VSS. Son made aware via phone re: transfer Addendum: 09/05/20 at 1128 by VICKI KELLER RN [Please disregard this note, this is for another patient!]
[2020-09-05 11:34] LABS: BASOPHILS % (AUTO) 0.2 % (0.0-2.0); HEMATOCRIT 36 % (39-51); HEMOGLOBIN 11.6 g/dL (13.5-17.5); LYMPHOCYTES # (AUTO) 0.9 K/uL (0.8-4.8); MEAN CORPUSCULAR HGB CONC 32 g/dl (31.0-36.0); MEAN CORPUSCULAR VOLUME 89 fL (80-96); MONOCYTES # (AUTO) 1.3 K/uL (0.1-1.30); MONOCYTES % (AUTO) 4.3 % (2.0-12.0); NEUTROPHILS # (AUTO) 27.4 K/uL (1.8-8.9); NEUTROPHILS % (AUTO) 92.5 % (43.0-81.0); PLATELET COUNT (AUTO) 541 K/uL (150-450); RED BLOOD CELL COUNT(AUTO) 4.08 MIL/uL (4.5-6.0); WHITE BLOOD COUNT (AUTO) 29.6 K/uL (4.3-11.0)
[2020-09-05 11:41] LABS: CALCIUM, SERUM 9.2 mg/dL (8.5-10.1); CREATININE 0.5 mg/dL (0.6-1.3); POTASSIUM 3.7 mmol/L (3.5-5.1)
--- NOTE | 2020-09-05 12:00 | NUR ---
RN NOTE 0715: Received patient awake, A/Ox3. On HFNC 50% FIO2. SR on the monitor. With LAURENT PICC intact, on TKO. Scott cath intact, noted with michael colored urine drained to BSD. Right NGT intact, feeding tolerated. Kept HOB elevated. Both hands swollen, kept elevated with pillows. 0900: On 6LPM via NC with humidifier, sat 94%, will continue to monitor. 0920: S/E by Dr. Leyva, no new order at this time. 1130: No any significant changes noted. Kept clean warm and dry. Needs attended.
[2020-09-05 12:12] LABS: BAND % (MANUAL) 1 % (0.0-5.0); LYMPHOCYTES % (MANUAL) 3 % (16-48); MONOCYTES % (MANUAL) 3 % (0-11.0); NEUTROPHILS % (MANUAL) 93 (42-76)
--- NOTE | 2020-09-05 12:15 | NUR ---
RN NOTE After swallow eval by ST, patient noted desat 70's, placed on NRB mast but still remained 70-80's. S/E by Dr. Leyva, ordered to do deep suctioning. Deep suction done by RT, now back to 98-100%, kept on HFNC 50% for now, will continue to monitor.
[2020-09-05] MEDS: MICAFUNGIN SODIUM 100 MG in IV NS 0.9% 100 ML IV SCH (20:30)
[2020-09-05] MEDS ORDERED: PIPERACILLIN /TAZOBACTAM 3.375 G in IV D5W 50 ML IV SCH (21:00)
[2020-09-05] MEDS ORDERED: PIPERACILLIN /TAZOBACTAM 3.375 G VIAL IV ONE (21:27)
[2020-09-05] MEDS: ZOSYN IVPB 3.375 G in IV D5W 50ml IV SCH (22:00)
[2020-09-06] VITALS (27 sets, daily range): BP systolic 96–173; BP diastolic 64–123
[2020-09-06] MEDS: IPRATROPIUM NEB FS 0.5 MG/2.5 ML AMPUL.NEB NEB SCH ×4 (02:13→20:15)
[2020-09-06] MEDS: ALBUTEROL FS 2.5 MG/0.5 ML VIAL.NEB NEB SCH ×4 (02:13→20:15)
--- NOTE | 2020-09-06 02:30 | NUR ---
SEWING PATTERN LAYOUT TECHNICIAN PT DESATURATED ON HIFLOW TO MID 70s SWITCHED TO VAPOTHERM 40L 85%
[2020-09-06] MEDS: HYDROCORTISONE SOD SUCCINATE 100 MG/2 ML VIAL IV SCH ×3 (03:02→18:33)
[2020-09-06 04:53] LABS: BASOPHILS % (AUTO) 0.1 % (0.0-2.0); HEMATOCRIT 38 % (39-51); LYMPHOCYTES # (AUTO) 1.1 K/uL (0.8-4.8); MEAN CORPUSCULAR HGB CONC 31 g/dl (31.0-36.0); MEAN CORPUSCULAR VOLUME 89 fL (80-96); MONOCYTES # (AUTO) 1.6 K/uL (0.1-1.30); MONOCYTES % (AUTO) 4.5 % (2.0-12.0); NEUTROPHILS # (AUTO) 32.7 K/uL (1.8-8.9); NEUTROPHILS % (AUTO) 92.4 % (43.0-81.0); PLATELET COUNT (AUTO) 648 K/uL (150-450); RED BLOOD CELL COUNT(AUTO) 4.31 MIL/uL (4.5-6.0)
[2020-09-06] MEDS ORDERED: PIPERACILLIN /TAZOBACTAM 3.375 G VIAL IV ONE (04:55)
[2020-09-06] MEDS: ZOSYN IVPB 3.375 G in IV D5W 50ml IV SCH (05:00)
[2020-09-06 05:03] LABS: WHITE BLOOD COUNT (AUTO) 35.3 K/uL (4.3-11.0)
[2020-09-06 05:21] LABS: ALBUMIN 1.9 g/dL (3.4-5.0); BILIRUBIN,TOTAL 0.3 mg/dL (0.2-1.0); CALCIUM, SERUM 9.2 mg/dL (8.5-10.1); CREATININE 0.4 mg/dL (0.6-1.3); POTASSIUM 3.5 mmol/L (3.5-5.1); TOTAL PROTEIN, SERUM 6.6 g/dL (6.4-8.2)
[2020-09-06] MEDS: JEVITY 1.2 CAL 1,000 ML BOTTLE GT PRN ×2 (05:52→13:13)
--- NOTE | 2020-09-06 07:40 | NUR ---
ICU/RN PT IS ON HI-FLOW O2 AT 40L- 100% AND NRM.SAT O2-97%.HR-105 BPM.V/S STABLE,AFEBRILE.NO PAIN REPORTED AT THIS TIME.PT IS AWAKE,ALERT ,ORIENTED.VERY WEAK.GENERELIZED EDEMA PRESENT.RIGHT UPPER ARM PICC LINE.F/C DRAINING WITH RO URINE.RIGHT NG TUBE INFUSING WITH JEVITY AT 30ML/HR.NO RESIDUAL NOTED.REDNESS ON MAYRA AREA NOTED.SACRAL WOUND COVERES WITH DRESSING.SUCTION PROVIDED.REPOSITION FOR COMFORT.LABS REVIEW.
[2020-09-06] MEDS: PROSOURCE / PROSTAT (PYXIS) 30 ML UDC GT SCH (08:10)
[2020-09-06] MEDS: FERROUS SULFATE (325 MG) 325 MG/TAB TABLET PO SCH ×2 (08:10→16:55)
[2020-09-06] MEDS: MEGESTROL ACETATE SUSP 400 MG/10 ML UDC PO SCH ×2 (08:10→16:55)
[2020-09-06] MEDS: DOCUSATE SODIUM LIQ 100 MG/10 ML UDC GT SCH ×2 (08:10→16:51)
[2020-09-06] MEDS: GABAPENTIN 300 MG CAPSULE PO SCH ×3 (08:10→16:55)
[2020-09-06] MEDS: PANTOPRAZOLE 40 MG/PACK PACK GT SCH (08:10)
[2020-09-06] MEDS: MINERAL OIL/PETROLATUM,WHITE 120 GM JAR TP SCH (08:11)
[2020-09-06] MEDS: CLOTRIMAZOLE 1% 15 GM TUBE TP SCH ×2 (08:11→16:56)
--- NOTE | 2020-09-06 09:00 | NUR ---
ICU/RN DUE MEDS ARE GIVEN ORDERED.
[2020-09-06 10:00] LABS: ABG BASE EXCESS 5.7 mmol/L; ABG OXYGEN SATURATION 95.7 % (92.0-98.5); ABG PCO2 54.5 mmHg (35.0-45.0); ABG PH 7.388 (7.350-7.450); ABG PO2 77.2 mmHg (75.0-100.0); AaDO2 581.3 mmHg; COHb 0.3 % (0.5-1.5); MetHb 0.2 % (0.0-1.5); O2Hb 95.2 % (94.0-97.0); SITE, ABG Left Radial; VENT MODE, BG hiflow 100% 40 lpm+NRB
[2020-09-06] MEDS: Z GUARD REMEDY 2 OZ OINT TP PRN (11:29)
[2020-09-06] MEDS: PIPERACILLIN /TAZOBACTAM 3.375 G in IV D5W 100 ML IV SCH ×2 (11:29→19:41)
[2020-09-06 13:14] LABS: BILIRUBIN,URINE NEGATIVE (NEGATIVE); COLOR,URINE DARK YELLOW (YELLOW); LEUKOCYTE ESTERASE ,URINE NEGATIVE (NEGATIVE); NITRITE, URINE NEGATIVE (NEGATIVE); PH,URINE 5.5 (5.0-8.0); PROTEIN,URINE 100 mg/dl (NEGATIVE); UGLUCOSE NEGATIVE (NEGATIVE); UROBILINOGEN,URINE 0.2 EU/dL (0.2)
[2020-09-06 13:50] LABS: BACTERIA,URINE None seen /HPF (None Seen); RBC,URINE TOO NUMEROUS TO COUN /HPF (0-2); SQUAMOUS EPITHELIAL CELL,UR Few /HPF (None Seen); WBC,URINE 0-2 /HPF (0-3)
--- NOTE | 2020-09-06 18:00 | NUR ---
ICU/RN PM CARE PROVIDED.WOUND DRESSING DONE ORDERED.DUE MEDS ARE GIVEN .PT IS ON HI-HLOW ONLY AT 30L-60%,SATO2-97%.V/S STABLE,AFEBRILE.NO PAIN REPORTED AT THIS TIME.REPOSITION FOR COMFORT.CONTINUE MONITORING.
[2020-09-06] MEDS: IV NS 0.9% 250 ML IV PRN (19:39)
--- NOTE | 2020-09-06 20:00 | NUR ---
received pt in bed a/a/o x3,on high flow 30l ,fio2 60%, sating 96%, pt has unlabored breathing.pt has ng tube feeding jevity at 30 ml/hr. no residual noted. pt has f/c draning michael color urine.
[2020-09-06] MEDS: MICAFUNGIN SODIUM 100 MG in IV NS 0.9% 100 ML IV SCH (21:18)
[2020-09-07] VITALS (62 sets, daily range): BP systolic 64–174; BP diastolic 41–114
[2020-09-07] MEDS: ALBUTEROL FS 2.5 MG/0.5 ML VIAL.NEB NEB SCH ×4 (01:53→19:53)
[2020-09-07] MEDS: IPRATROPIUM NEB FS 0.5 MG/2.5 ML AMPUL.NEB NEB SCH ×4 (01:53→19:53)
[2020-09-07] MEDS: HYDROCORTISONE SOD SUCCINATE 100 MG/2 ML VIAL IV SCH ×3 (04:06→18:39)
[2020-09-07] MEDS: PIPERACILLIN /TAZOBACTAM 3.375 G in IV D5W 100 ML IV SCH ×3 (04:06→21:00)
[2020-09-07 04:51] LABS: BASOPHILS # (AUTO) 0.1 K/uL (0.0-0.2); BASOPHILS % (AUTO) 0.2 % (0.0-2.0); HEMATOCRIT 36 % (39-51); HEMOGLOBIN 11.4 g/dL (13.5-17.5); LYMPHOCYTES # (AUTO) 1.3 K/uL (0.8-4.8); LYMPHOCYTES % (AUTO) 3.7 % (20.0-44.0); MEAN CORPUSCULAR HGB CONC 32 g/dl (31.0-36.0); MEAN CORPUSCULAR VOLUME 90 fL (80-96); MONOCYTES # (AUTO) 1.6 K/uL (0.1-1.30); MONOCYTES % (AUTO) 4.4 % (2.0-12.0); NEUTROPHILS # (AUTO) 32.1 K/uL (1.8-8.9); NEUTROPHILS % (AUTO) 91.7 % (43.0-81.0); PLATELET COUNT (AUTO) 526 K/uL (150-450); RED BLOOD CELL COUNT(AUTO) 3.98 MIL/uL (4.5-6.0)
[2020-09-07 04:58] LABS: WHITE BLOOD COUNT (AUTO) 35.1 K/uL (4.3-11.0)
[2020-09-07 05:00] LABS: CALCIUM, SERUM 9.1 mg/dL (8.5-10.1); CREATININE 0.5 mg/dL (0.6-1.3); POTASSIUM 3.4 mmol/L (3.5-5.1)
--- NOTE | 2020-09-07 07:15 | NUR ---
LYFT DRIVER NOTES Received patient awake, A/Ox3. On HFNC 30LPM 60%FIO2 . SR on the monitor. With LAURENT PICC intact, on TKO. Scott cath intact, noted with michael colored urine drained to BSD. Right NGT intact, feeding tolerated. Kept HOB elevated. Both hands swollen, kept elevated with pillows.
--- NOTE | 2020-09-07 07:29 | NUR ---
rn note report given to oncoming hift for epifanio.
[2020-09-07] MEDS ORDERED: POTASSIUM CHLORIDE 20 MEQ POWDER PACKET GT ONE (08:00)
[2020-09-07 08:29] LABS: ABG BASE EXCESS 5.8 mmol/L; ABG OXYGEN SATURATION 93.2 % (92.0-98.5); ABG PCO2 49.3 mmHg (35.0-45.0); ABG PH 7.421 (7.350-7.450); ABG PO2 62.9 mmHg (75.0-100.0); AaDO2 600.8 mmHg; COHb 0.4 % (0.5-1.5); MetHb 0.1 % (0.0-1.5); O2Hb 92.7 % (94.0-97.0); SITE, ABG Right Radial; VENT MODE, BG HFNC 40L / 100%
[2020-09-07] MEDS: MEGESTROL ACETATE SUSP 400 MG/10 ML UDC PO SCH ×2 (08:49→16:38)
[2020-09-07] MEDS: FERROUS SULFATE (325 MG) 325 MG/TAB TABLET PO SCH ×2 (08:49→16:39)
[2020-09-07] MEDS: GABAPENTIN 300 MG CAPSULE PO SCH ×3 (08:49→16:39)
[2020-09-07] MEDS: DOCUSATE SODIUM LIQ 100 MG/10 ML UDC GT SCH ×2 (08:50→16:37)
[2020-09-07] MEDS: PROSOURCE / PROSTAT (PYXIS) 30 ML UDC GT SCH (08:50)
[2020-09-07] MEDS: PANTOPRAZOLE 40 MG/PACK PACK GT SCH (08:50)
[2020-09-07] MEDS: MINERAL OIL/PETROLATUM,WHITE 120 GM JAR TP SCH (08:50)
[2020-09-07] MEDS: CLOTRIMAZOLE 1% 15 GM TUBE TP SCH ×2 (08:51→16:39)
--- NOTE | 2020-09-07 10:13 | NUR ---
CONCIERGE MANAGER NOTES PATIENT NOTED WITH EPISODE OF O2 DESATURATION @ 73% SUSTAINING WITH MILD DISTRESS ,PT ON 100% 60LPM HIGH FLOW O2 , PLACED PT ON 15LPM NON REBREATHER MASK ,CALLED RT , RT DEEP SUCTIONED THE PT , CURRENT SPO2 OF 96-97% IMPROVED , WILL CONTINUE TO MONITOR .
--- NOTE | 2020-09-07 10:30 | NUR ---
CURRENCY MACHINE OPERATOR NOTES NON REBREATHER MASK @15LPM REMOVED , SPO2 OF 96% VIA HIGH FLOW NC @100% 60LPM WITH NO DISTRESS, WILL CONTINUE TO MONITOR
[2020-09-07] MEDS ORDERED: ETOMIDATE 2 MG/ML VIAL ONE (12:00)
[2020-09-07] MEDS ORDERED: ROCURONIUM BROMIDE 50 MG/5 ML ONE (12:00)
--- NOTE | 2020-09-07 14:15 | NUR ---
MALT SPECIFICATIONS CONTROL ASSISTANT NOTES NOTIFIED DR HYATT THAT PT IS LETHARGIC ON DOUBLE O2 SET UP OF NON REBREATHER MASK @ 15LPM AND HIGH FLOW O2 @ 60LPM 100%FIO2 , SPO2 OF 97% , BREATHING IS SHALLOW , PER MD INTUBATE PT , ORDER PLACED DR WERNER AT BEDSIDE , DISCUSSED LABS , PER MD GIVE 20 MG ETOMIDATE , ROCURONIUM 50MG , STAT CHEST XRAY ORDERED , BILATERAL LUNG WITH + BREATH SOUNDS , PLACED PT ON AC 28 YV 500 FIO2 100 AND PEEP OF 5 , ABG AFTER AN HOUR , ORDER CARRIED OUT
[2020-09-07] MEDS ORDERED: PROPOFOL 100 ML IV PRN (14:30)
--- NOTE | 2020-09-07 14:30 | NUR ---
RT Pt was noted to be lethargic with shallow breathing. Pt was then intubated by Dr. Garber with 7.5 ET tube secured at 25cm at the lip line. Positive CO2 color change noted on CO2 detector, equal bilateral breath sounds and chest rise is noted. Pt was placed on mechanical ventilation with noted settings from prior intubation. PEEP discontinued at this time due to his hypotension. Addendum: 09/07/20 at 1448 by ALE STANLEY RT Amended: Links added.
--- NOTE | 2020-09-07 14:55 | NUR ---
.NET PROGRAMMER NOTES NOTIFIED DEBBI REYES REGARDING BP OF 67/41 S/P INTUBATION , NOTIDIED SHEA DICKEY REGARDING INTUBATION DUE TO LETHARGY AND AMS CURRENT BP OF 69/43 , PER DIETETIC INTERN GIVE 500ML BOLUS AND IF BP STILL LOW START PT ON LEVOPHED , ORDER CARRIED OUT
--- NOTE | 2020-09-07 15:03 | NUR ---
RT ET tube advanced 2cm per Dr. Shirlene guerra. Equal bilateral breath sounds and chest rise noted. No SOB or respiratory distress noted. Addendum: 09/07/20 at 1504 by ALE STANLEY RT Amended: Links added.
[2020-09-07] MEDS ORDERED: IV NS 0.9% 500 ML IV ONE (15:30)
[2020-09-07] MEDS: JEVITY 1.2 CAL 1,000 ML BOTTLE GT PRN (15:53)
[2020-09-07 16:31] LABS: ABG BASE EXCESS 5.1 mmol/L; ABG OXYGEN SATURATION 90.8 % (92.0-98.5); ABG PCO2 41.7 mmHg (35.0-45.0); ABG PH 7.465 (7.350-7.450); ABG PO2 52.7 mmHg (75.0-100.0); AaDO2 184.5 mmHg; COHb 0.3 % (0.5-1.5); MetHb 0.3 % (0.0-1.5); O2Hb 90.3 % (94.0-97.0); PEEP,BG 5 cm H2O; SITE, ABG Left Radial; VT, ABG 500 mL
--- NOTE | 2020-09-07 16:33 | NUR ---
ADVANCED PRACTICE NURSE PSYCHOTHERAPIST NOTES ABG RESULT RELATED TO DR HYATT , DISCUSSED VENT SETTINGS , AWAITING FOR ORDERS
[2020-09-07] MEDS: NOREPINEPHRINE 8 MG in IV NS 0.9% 242 ML IV PRN (16:41)
[2020-09-07] MEDS: PROPOFOL 10MG/ML 50ML 50 ML IV PRN ×2 (19:14→21:40)
--- NOTE | 2020-09-07 19:15 | NUR ---
NEAR EASTERN ARCHAEOLOGY LECTURER NOTES PATIENT STABLE AT THIS TIME , AWAKE ON VENT TOLERATING WELL WITH SETTINGS ORDERED SPO2 OF 98% , DIPRIVAN STARTED @ 5MCG/KG/MIN INFUSING WELL , ETT 7.[address] , , ST 105 ON BEDSIDE MONITOR. FC DRAININGVIA GRAVITY , NGT WITH JEVITY @30ML/HR , LAURENT PICC LINE WITH NS @ TKO , ALL NEEDS ATTENED , REPORT GIVEN TO RENETTA FOR CONTINUITY OF CARE
[2020-09-07] MEDS: MICAFUNGIN SODIUM 100 MG in IV NS 0.9% 100 ML IV SCH (20:00)
--- NOTE | 2020-09-07 20:10 | NUR ---
TRAPPER ANIMAL BP NOTED 80/42 LEVOPHED STARTED AT 0.1 MCG/KG/MIN
[2020-09-08] VITALS (95 sets, daily range): BP systolic 55–161; BP diastolic 37–108
[2020-09-08] MEDS: ALBUTEROL FS 2.5 MG/0.5 ML VIAL.NEB NEB SCH ×4 (01:37→19:46)
[2020-09-08] MEDS: IPRATROPIUM NEB FS 0.5 MG/2.5 ML AMPUL.NEB NEB SCH ×4 (01:37→19:46)
[2020-09-08] MEDS: HYDROCORTISONE SOD SUCCINATE 100 MG/2 ML VIAL IV SCH ×3 (02:49→19:23)
[2020-09-08] MEDS: PROPOFOL 10MG/ML 50ML 50 ML IV PRN ×7 (02:49→23:02)
[2020-09-08] MEDS: PIPERACILLIN /TAZOBACTAM 3.375 G in IV D5W 100 ML IV SCH ×3 (03:00→19:26)
[2020-09-08 04:39] LABS: HEMATOCRIT 35 % (39-51); HEMOGLOBIN 11.4 g/dL (13.5-17.5); LYMPHOCYTES # (AUTO) 1.7 K/uL (0.8-4.8); LYMPHOCYTES % (AUTO) 4.1 % (20.0-44.0); MEAN CORPUSCULAR HGB CONC 33 g/dl (31.0-36.0); MEAN CORPUSCULAR VOLUME 89 fL (80-96); MONOCYTES # (AUTO) 1.6 K/uL (0.1-1.30); NEUTROPHILS # (AUTO) 37.1 K/uL (1.8-8.9); NEUTROPHILS % (AUTO) 91.9 % (43.0-81.0); PLATELET COUNT (AUTO) 690 K/uL (150-450); RED BLOOD CELL COUNT(AUTO) 3.94 MIL/uL (4.5-6.0)
[2020-09-08 04:48] LABS: WHITE BLOOD COUNT (AUTO) 40.4 K/uL (4.3-11.0)
[2020-09-08 04:49] LABS: CALCIUM, SERUM 8.9 mg/dL (8.5-10.1); CREATININE 0.4 mg/dL (0.6-1.3); POTASSIUM 3.7 mmol/L (3.5-5.1)
[2020-09-08 05:15] LABS: BAND % (MANUAL) 2 % (0.0-5.0); BASOPHILS % (MANUAL) 0 % (0.0-2.0); EOSINOPHILS % (MANUAL) 0 % (0-4); LYMPHOCYTES % (MANUAL) 3 % (16-48); MONOCYTES % (MANUAL) 1 % (0-11.0); NEUTROPHILS % (MANUAL) 94 (42-76)
--- NOTE | 2020-09-08 07:25 | NUR ---
SUPPLIER DEVELOPMENT MANAGER OPENING NOTE RECEIVED REPORT FROM PM NURSE.PATIENT IN BED .INTUBATED7.07/24@LIP LEVEL.TOLERATING VENT SETTINGS.ON DIPRIVAN AND LEVO.PICC LINE ON LAURENT.NGT WITH FEEDING 30ML/HR.BED IS LOW AND IN LOCKED POSITION.CALL LIGHT IN REACH.BED ALARM ON.SRX3.ON BILATERAL WRIST RESTRAINTS.WILL CONTINUE TO MONITOR.
--- NOTE | 2020-09-08 07:40 | NUR ---
RT Pt received orally intubated on mechanical ventilation with noted settings. Vent is plugged into red outlet with BVM by bedside. No SOB or respiratory distress noted. Plan is to continue with current respiratory care orders. Addendum: 09/08/20 at 1710 by ALE STANLEY RT Amended: Links added.
[2020-09-08 08:27] LABS: ABG BASE EXCESS 2.6 mmol/L; ABG OXYGEN SATURATION 95.6 % (92.0-98.5); ABG PCO2 35.4 mmHg (35.0-45.0); ABG PH 7.482 (7.350-7.450); ABG PO2 68.4 mmHg (75.0-100.0); AaDO2 248.3 mmHg; COHb 0.3 % (0.5-1.5); MetHb 0.3 % (0.0-1.5); PEEP,BG 5 cm H2O; SITE, ABG Left Radial; VT, ABG 500 mL
--- NOTE | 2020-09-08 08:31 | NUR ---
WOUND CARE FOLLOW UP: PT SEEN FOR RE-EVALUATION OF SACRAL AND LEFT HIP DEEP TISSUE INJURIES. SACRAL DEEP TISSUE INJURY IS IN EVOLUTION AND HAS SCARRING TO PERIWOUND (SCARRING PRESENT ON ADMISSION). LEFT HIP DTI REMAINS INTACT. PT REINTUBATED AT THIS TIME. PT HAS MULTIPLE CO-MORBIDITIES INCLUDING RESPIRATORY FAILURE, CANCER AND CACHEXIA. DUE TO MULTIPLE CO-MORBIDITIES, FURTHER SKIN BREAKDOWN MAY BE UNAVOIDABLE. DISCUSSED WOUND CARE AND SKIN PROTECTION RECOMMENDATIONS WITH NURSING STAFF. PT FOLLOWED BY DPM FOR PURPLISH DISCOLORATION TO LEFT GREAT TOE. MD IN AGREEMENT WITH PLAN OF CARE. [facility] Addendum: 09/08/20 at 0835 by ANA PAULA WANG WNDNU Amended: Links added.
[2020-09-08] MEDS: MORPHINE SULFATE INJ 4 MG/ML DISP.SYRIN IV PRN (08:34)
[2020-09-08] MEDS: FERROUS SULFATE (325 MG) 325 MG/TAB TABLET PO SCH ×2 (08:46→17:00)
[2020-09-08] MEDS: PROSOURCE / PROSTAT (PYXIS) 30 ML UDC GT SCH (08:46)
[2020-09-08] MEDS: MEGESTROL ACETATE SUSP 400 MG/10 ML UDC PO SCH ×2 (08:46→17:00)
[2020-09-08] MEDS: GABAPENTIN 300 MG CAPSULE PO SCH ×3 (08:46→17:00)
[2020-09-08] MEDS: Z GUARD REMEDY 2 OZ OINT TP PRN (08:47)
[2020-09-08] MEDS: DOCUSATE SODIUM LIQ 100 MG/10 ML UDC GT SCH ×2 (08:47→17:00)
[2020-09-08] MEDS: PANTOPRAZOLE 40 MG/PACK PACK GT SCH (08:47)
[2020-09-08] MEDS: MINERAL OIL/PETROLATUM,WHITE 120 GM JAR TP SCH (08:48)
[2020-09-08] MEDS ORDERED: VANCOMYCIN 1 GM in IV D5W 250 ML IV SCH (10:00)
[2020-09-08] MEDS: CLOTRIMAZOLE 1% 15 GM TUBE TP SCH ×2 (10:05→17:35)
--- NOTE | 2020-09-08 12:15 | NUR ---
TESTER OPERATOR HELPER NOTE RECEIVED CALL FROM SURGERY ,SPOKE TO SHON ,PEG PLACEMENT @1999.TURN OFF GT FEEDING NOW.WILL CONTINUE TO MONITOR.
[2020-09-08] MEDS: ASPIRIN 81 MG TAB.CHEW PO SCH (13:30)
[2020-09-08] MEDS: IV LR 1000 ML 1,000 ML IV PRN (14:34)
--- NOTE | 2020-09-08 16:12 | NUR ---
Salvager Helper note: park services specialist requested to locate family member. Per Gab Adam NP, he attempted earlier today and left a message. SS will follow up at a later time and contact patient's friend, Darshan CantuOfosr-[phone].
[2020-09-08] MEDS: VANCOMYCIN 0.75 GM in IV D5W 250 ML IV SCH (17:34)
[2020-09-08] MEDS: NOREPINEPHRINE 8 MG in IV NS 0.9% 242 ML IV PRN (17:53)
--- NOTE | 2020-09-08 19:00 | NUR ---
STOCK AND STATION AGENT CLOSING NOTE PATIENT IS IN BED,VITAL SIGNS STABLE,.ON LEVO AND PROPOFOL.SAFETY AND ASPIRATION MEASURES IN PLACE.AWAITING PEG PLACEMENT.CONSENT SIGNED BY BASE FILLER SHEA.NO FAMILY AT PRESENT.WILL ENDORSE TO PM NURSE FOR RUSS.
--- NOTE | 2020-09-08 19:05 | NUR ---
RECEIVED PT ON BED SEDATED ON ETT/VENT SETTING PER MD FIO2 50% SPO2 98% NO SIGN OF RESPIRATORY DISTRESS, NO PAIN NOTED, ON TELE MONITOR READS SINUS RHYTHM 70'S HAVE LAURENT PICC WITH ONGOING DIPRIVAN @ 50MCG/KG/MIN AND LEVOPHED @ 0.1 MCG/KG/MIN AND LR @ 50ML/HR INFUSING WELL HAVE SOW CATHETER WITH YELLOW URINE DRAINING VIA GRAVITY HAVE RIGHT NGTUBE CLAMPED, ON PLACE, PLACEMENT CHECKED, HAVE BILATERAL WRIST RESTRAINTS CIRCULATION WILL BE MONITOR REGULARLY, BED ON LOWEST POSITION AND LOCKED SIDE RAILS UP X2 CALL LIGHT WITHIN REACH WILL CONT TO MONITOR
--- NOTE | 2020-09-08 20:00 | NUR ---
SURGERY NURSE INFORMED US THAT THE PEG PLACEMENT FOR THE PT WAS CANCEL BY DR. JIMENEZ, CHARGE NURSE GERARD MADE AWARE AND CONTACT DR. JIMENEZ
--- NOTE | 2020-09-08 20:15 | NUR ---
INFORMED MACO MIMS PERSON INVESTIGATOR THAT THE GTUBE PLACEMENT OF THE PT WAS CANCELED, HE OKAYED TO RESUME THE GTUBE FEEDING FOR NOW UNTIL FURTHER ORDER, WILL RESTART FEEDING OF JEVITY @ 30ML/HR
[2020-09-08] MEDS: MICAFUNGIN SODIUM 100 MG in IV NS 0.9% 100 ML IV SCH (20:31)
[2020-09-09] VITALS (95 sets, daily range): BP systolic 89–128; BP diastolic 43–86
[2020-09-09] MEDS: IPRATROPIUM NEB FS 0.5 MG/2.5 ML AMPUL.NEB NEB SCH ×4 (01:30→20:03)
[2020-09-09] MEDS: ALBUTEROL FS 2.5 MG/0.5 ML VIAL.NEB NEB SCH ×4 (01:30→20:03)
[2020-09-09] MEDS: PROPOFOL 10MG/ML 50ML 50 ML IV PRN ×7 (02:00→22:14)
[2020-09-09] MEDS: VANCOMYCIN 0.75 GM in IV D5W 250 ML IV SCH ×2 (02:15→10:12)
[2020-09-09] MEDS: PIPERACILLIN /TAZOBACTAM 3.375 G in IV D5W 100 ML IV SCH ×3 (03:11→20:23)
[2020-09-09] MEDS: HYDROCORTISONE SOD SUCCINATE 100 MG/2 ML VIAL IV SCH ×3 (03:11→18:29)
[2020-09-09 04:33] LABS: BASOPHILS # (AUTO) 0.1 K/uL (0.0-0.2); BASOPHILS % (AUTO) 0.2 % (0.0-2.0); HEMATOCRIT 35 % (39-51); HEMOGLOBIN 11.1 g/dL (13.5-17.5); LYMPHOCYTES # (AUTO) 1.5 K/uL (0.8-4.8); LYMPHOCYTES % (AUTO) 5.1 % (20.0-44.0); MEAN CORPUSCULAR HGB CONC 32 g/dl (31.0-36.0); MEAN CORPUSCULAR VOLUME 90 fL (80-96); MONOCYTES # (AUTO) 0.8 K/uL (0.1-1.30); MONOCYTES % (AUTO) 2.6 % (2.0-12.0); NEUTROPHILS # (AUTO) 27.4 K/uL (1.8-8.9); NEUTROPHILS % (AUTO) 92.1 % (43.0-81.0); PLATELET COUNT (AUTO) 583 K/uL (150-450); WHITE BLOOD COUNT (AUTO) 29.8 K/uL (4.3-11.0)
[2020-09-09 04:40] LABS: CALCIUM, SERUM 8.5 mg/dL (8.5-10.1); CREATININE 0.4 mg/dL (0.6-1.3); POTASSIUM 3.5 mmol/L (3.5-5.1)
[2020-09-09] MEDS: IV NS 0.9% 250 ML IV PRN (05:54)
[2020-09-09] MEDS ORDERED: JEVITY 1.2 CAL 1,000 ML BOTTLE GT PRN ×4 (06:00→09:41)
[2020-09-09] MEDS: IV LR 1000 ML 1,000 ML IV PRN (06:34)
--- NOTE | 2020-09-09 07:10 | NUR ---
LAY BROTHER NOTES RECEIVED PT ON BED INTUBATED AND SEDATED ON ETT/VENT SETTING AC 28, TV 450, FIO2 50%, PEEP 5, NO SIGN OF RESPIRATORY DISTRESS NOTED AT THIS TIME, ON TELE MONITOR READS SINUS RHYTHM 70'S. NOTED LAURENT PICC WITH ONGOING DIPRIVAN @ 40MCG/KG/MIN AND LEVOPHED @ 0.04 MCG/KG/MIN AND LR @ 50ML/HR INFUSING WELL. SOW CATHETER WITH YELLOW URINE DRAINING VIA GRAVITY. NOTED WITH RIGHT NG TUBE RUNNING JEVITY 1.2 @ 30ML/HR, MINIMAL RSV. BILATERAL SOFT WRIST RESTRAINTS NOTED, CIRCULATION WILL BE MONITOR REGULARLY, SAFETY MEASURES IN PLACE, BED ON LOWEST POSITION AND LOCKED SIDE RAILS UP X2 CALL LIGHT WITHIN REACH WILL CONT TO MONITOR.
[2020-09-09] MEDS: DOCUSATE SODIUM LIQ 100 MG/10 ML UDC GT SCH ×2 (08:05→16:48)
[2020-09-09] MEDS: MEGESTROL ACETATE SUSP 400 MG/10 ML UDC PO SCH ×2 (08:05→16:48)
[2020-09-09] MEDS: FERROUS SULFATE (325 MG) 325 MG/TAB TABLET PO SCH ×2 (08:05→16:48)
[2020-09-09] MEDS: PROSOURCE / PROSTAT (PYXIS) 30 ML UDC GT SCH (08:05)
[2020-09-09] MEDS: GABAPENTIN 300 MG CAPSULE PO SCH ×3 (08:05→16:48)
[2020-09-09] MEDS: ASPIRIN 81 MG TAB.CHEW PO SCH (08:05)
[2020-09-09] MEDS: PANTOPRAZOLE 40 MG/PACK PACK GT SCH (08:05)
[2020-09-09] MEDS: MINERAL OIL/PETROLATUM,WHITE 120 GM JAR TP SCH (08:06)
[2020-09-09] MEDS: CLOTRIMAZOLE 1% 15 GM TUBE TP SCH ×2 (08:06→16:49)
--- NOTE | 2020-09-09 08:56 | NUR ---
KITCHEN CLERK NOTES SEEN AND EXAMINED BY DR. HYATT WITH ORDERS TO INCREASE RATE OF FEEDING TO 50ML/HR, ORDERS MADE AND CARRIED OUT. WILL CONTINUE TO MONITOR.
[2020-09-09] MEDS ORDERED: POTASSIUM CHLORIDE 20 MEQ POWDER PACKET GT ONE (14:00)
[2020-09-09] MEDS: NOREPINEPHRINE 8 MG in IV NS 0.9% 242 ML IV PRN (17:24)
[2020-09-09] MEDS: VANCOMYCIN 1 GM in IV D5W 250 ML IV SCH (17:35)
--- NOTE | 2020-09-09 18:51 | NUR ---
SURGICAL AIDE NOTES Patient in Bed, intubated and sedated, tolerating current vent setting, Noted with LAURENT PICC, On levophed running @ 0.04 mcg/kg/min, propofol @ 40 mcg/kg/min and LR @50ml/hr, On NGtube feeding with jevity 1.2 @50ml/hr, minimal RSV, Noted with FC draining with clear yellow urine, Noted with Bilateral soft wrist restraint, circulation checked, safety measures maintained, will endorse to warehouse shift supervisor nurse for RUSS.
--- NOTE | 2020-09-09 19:30 | NUR ---
ICU/REPACK ROOM WORKER RECEIVED REPORT FROM DAY NURSE. SEE FLOWSHEET FOR ASSESSMENT ALONG WITH SKIN ISSUES WHICH ARE ADDRESSED AND THE INTERVENTIONS TO EACH. THE IV'S AND SEDATION IS ADDRESSED ON THE IV SPREAD SHEET ALONG WITH TITRATIONS TO EACH.THIS PT IS TOLERATING CURRENT VENT SETTINGS WITH SATURATION AT 100%. PT WAS TURNED AND REPOSITIONED FOR COMFORT AND CARE. NO ACUTE DISTRESS SEEN AT THIS TIME WILL CONTINUE MONITOR THIS PT
--- NOTE | 2020-09-09 20:10 | NUR ---
ICU/ONCOLOGY COORDINATOR CHARGE NURSE MADE AWARE THAT PT'S BLOOD PRESSURE WAS STABLE THROUGH A FEW CYCLES. CHARGE NURSE DECREASED THE LEVO PER HOSPITAL PROTOCAL. WILL CONTINUE TO MONITOR PT AND HIS SBP. SEE IV SPREAD SHEET FOR TITRATIONS TO THE LEVO.
[2020-09-09] MEDS: MICAFUNGIN SODIUM 100 MG in IV NS 0.9% 100 ML IV SCH (20:29)
--- NOTE | 2020-09-09 20:40 | NUR ---
ICU/CUSTOMER SERVICE SALES ASSOCIATE PT HAS RIGHT NARE N/G TUBE FEEDING AT 50ML/HR. PLACEMENT WAS CHECKED ALONG WITH RESIDUALS TO THIS. FOUND THAT PT HAS 100ML OF RESIDUALS. TURNED OFF FEEDING AND MADE CHARGE NURSE AWARE. WILL RESUME FEEDING WHEN RESIDUALS RE LOWER.
--- NOTE | 2020-09-09 22:35 | NUR ---
ICU/MILLER APPRENTICE PT WAS GIVEN ORAL CARE, ALONG WITH PM CARE AT THIS TIME. PT TOLERATED THIS WELL, PT REMAINS ON CURRENT VENT SETTINGS WITH SATURATION AT 100%. PT WAS TURNED AND REPOSITIONED FOR COMFORT AND CARE. WILL CONTINUE TO MONITOR THIS PT. NO ACUTE DISTRESS SEEN AT THIS TIME.
[2020-09-10] VITALS (94 sets, daily range): BP systolic 83–153; BP diastolic 57–99
[2020-09-10] MEDS: IV NS 0.9% 250 ML IV PRN ×2 (00:01→20:36)
--- NOTE | 2020-09-10 00:25 | NUR ---
ICU/RECRUITING SPECIALIST PT WAS TURNED AND REPOSITIONED FOR COMFORT AND CARE. WILL CONTINUE TO MONITOR THIS PT. NO ACUTE DISTRESS SEEN AT THIS TIME.
[2020-09-10] MEDS: ALBUTEROL FS 2.5 MG/0.5 ML VIAL.NEB NEB SCH ×4 (01:34→20:01)
[2020-09-10] MEDS: IPRATROPIUM NEB FS 0.5 MG/2.5 ML AMPUL.NEB NEB SCH ×4 (01:34→20:01)
[2020-09-10] MEDS: PROPOFOL 10MG/ML 50ML 50 ML IV PRN ×7 (01:35→22:38)
--- NOTE | 2020-09-10 02:35 | NUR ---
ICU/MAINTENANCE INSPECTOR PT WAS GIVEN ORAL CARE, ALONG WITH AM CARE AT THIS TIME. PT TOLERATED THIS WELL, PT REMAINS ON CURRENT VENT SETTINGS WITH SATURATION AT 100%. PT WAS TURNED AND REPOSITIONED FOR COMFORT AND CARE. WILL CONTINUE TO MONITOR THIS PT. NO ACUTE DISTRESS SEEN AT THIS TIME.
--- NOTE | 2020-09-10 03:50 | NUR ---
ICU/COMPONENT LAB TECH AM LABS AND CXR, AWAIT FOR ANY ABNORMAL LABS RESULTS THIS MORNING.
[2020-09-10] MEDS: PIPERACILLIN /TAZOBACTAM 3.375 G in IV D5W 100 ML IV SCH ×3 (04:06→19:53)
[2020-09-10] MEDS: HYDROCORTISONE SOD SUCCINATE 100 MG/2 ML VIAL IV SCH ×3 (04:06→18:04)
[2020-09-10 04:25] LABS: HEMATOCRIT 35 % (39-51); LYMPHOCYTES # (AUTO) 1.4 K/uL (0.8-4.8); LYMPHOCYTES % (AUTO) 6.3 % (20.0-44.0); MEAN CORPUSCULAR HGB CONC 32 g/dl (31.0-36.0); MEAN CORPUSCULAR VOLUME 90 fL (80-96); MONOCYTES % (AUTO) 4.4 % (2.0-12.0); NEUTROPHILS # (AUTO) 19.4 K/uL (1.8-8.9); NEUTROPHILS % (AUTO) 89.3 % (43.0-81.0); PLATELET COUNT (AUTO) 491 K/uL (150-450); RED BLOOD CELL COUNT(AUTO) 3.83 MIL/uL (4.5-6.0); WHITE BLOOD COUNT (AUTO) 21.8 K/uL (4.3-11.0)
[2020-09-10 04:40] LABS: CALCIUM, SERUM 8.4 mg/dL (8.5-10.1); CREATININE 0.4 mg/dL (0.6-1.3); PHOSPHORUS 2.7 mg/dL (2.5-4.9); POTASSIUM 3.4 mmol/L (3.5-5.1)
[2020-09-10] MEDS: VANCOMYCIN 1 GM in IV D5W 250 ML IV SCH ×2 (05:16→17:46)
--- NOTE | 2020-09-10 06:30 | NUR ---
ICU/PROFESSOR OF LANGUAGES STONEWORKING SANDER NURSE CONTINUES TO TITRATE DOWN THE LEVO AND SEDATION SO THAT PT IS READY FOR SIMV TODAY. AT THIS TIME PT WAS TURNED AND REPOSTIONED FOR COMFORT AND CARE.
--- NOTE | 2020-09-10 07:10 | NUR ---
HEEL BOOM OPERATOR NOTES RECEIVED PT ON BED INTUBATED AND SEDATED ON ETT/VENT SETTING AC 28, TV 450, FIO2 50%, PEEP 5, NO SIGN OF RESPIRATORY DISTRESS NOTED AT THIS TIME, ON TELE MONITOR READS SINUS RHYTHM 90'S. NOTED LAURENT PICC WITH ONGOING DIPRIVAN @ 30MCG/KG/MIN AND LEVOPHED @ 0.02 MCG/KG/MIN AND LR @ 50ML/HR INFUSING WELL. SOW CATHETER WITH YELLOW URINE DRAINING VIA GRAVITY. NOTED WITH RIGHT NG TUBE RUNNING JEVITY 1.2 @ 25ML/HR, WITH 80ML OF RSV. BILATERAL SOFT WRIST RESTRAINTS NOTED, CIRCULATION WILL BE MONITOR REGULARLY, SAFETY MEASURES IN PLACE, BED ON LOWEST POSITION AND LOCKED SIDE RAILS UP X2 CALL LIGHT WITHIN REACH. WILL CONT TO MONITOR.
[2020-09-10] MEDS: PANTOPRAZOLE 40 MG/PACK PACK GT SCH (08:08)
[2020-09-10] MEDS: MEGESTROL ACETATE SUSP 400 MG/10 ML UDC PO SCH ×2 (08:08→16:32)
[2020-09-10] MEDS: ASPIRIN 81 MG TAB.CHEW PO SCH (08:08)
[2020-09-10] MEDS: PROSOURCE / PROSTAT (PYXIS) 30 ML UDC GT SCH (08:08)
[2020-09-10] MEDS: GABAPENTIN 300 MG CAPSULE PO SCH ×3 (08:08→16:32)
[2020-09-10] MEDS: FERROUS SULFATE (325 MG) 325 MG/TAB TABLET PO SCH ×2 (08:08→16:32)
[2020-09-10] MEDS: DOCUSATE SODIUM LIQ 100 MG/10 ML UDC GT SCH ×2 (08:08→16:32)
[2020-09-10] MEDS: MINERAL OIL/PETROLATUM,WHITE 120 GM JAR TP SCH (08:09)
[2020-09-10] MEDS: CLOTRIMAZOLE 1% 15 GM TUBE TP SCH ×2 (08:09→16:32)
[2020-09-10] MEDS: POTASSIUM CL. PREMIX PERIPHER. 50 ML IV SCH ×2 (09:11→10:14)
--- NOTE | 2020-09-10 10:00 | NUR ---
DEPARTMENT DIRECTOR NOTES SEEN AND EXAMINED BY DR. MATAMOROS, MADE AWARE OF 80 ML OF RSV, NNO AT THIS TIME, TO CONTINUE TO MONITOR. 10:05-CALLED DR. DUBOSE OFFICE REGARDING TRACH PLACEMENT, PER TUCKER THEY WILL CALL BACK REGARDING THE SCHEDULE.
[2020-09-10] MEDS ORDERED: JEVITY 1.2 CAL 1,000 ML BOTTLE GT SCH (11:00)
[2020-09-10] MEDS: LORAZEPAM INJ 2 MG/ML VIAL IV PRN (12:38)
--- NOTE | 2020-09-10 18:30 | NUR ---
MUNICIPAL CLERK NOTES PT IN BED INTUBATED AND SEDATED ON ETT/VENT SETTING AC 28, TV 450, FIO2 40%, PEEP 5, NO SIGN OF RESPIRATORY DISTRESS NOTED THROUGHOUT THE SHIFT, ON TELE MONITOR READS SINUS RHYTHM 80'S. NOTED LAURENT PICC WITH ONGOING DIPRIVAN @ 40MCG/KG/MIN AND LEVOPHED @ 0.02 MCG/KG/MIN AND LR @ 50ML/HR INFUSING WELL. SOW CATHETER WITH YELLOW URINE DRAINING VIA GRAVITY. NOTED WITH RIGHT NG TUBE RUNNING JEVITY 1.2 @ 35ML/HR, WITH MINIMAL RSV. SAFETY MEASURES MAINTAINED, BED ON LOWEST POSITION AND LOCKED SIDE RAILS UP X2 CALL LIGHT WITHIN REACH. WILL ENDORSE TO HOUSEMAID NURSE FOR [facility]USS.
[2020-09-10] MEDS: NOREPINEPHRINE 8 MG in IV NS 0.9% 242 ML IV PRN (19:00)
--- NOTE | 2020-09-10 19:20 | NUR ---
ICU/[facility] PROFESSIONAL BILINGUAL RECEIVED REPORT FROM DAY NURSE. SEE FLOWSHEET FOR ASSESSMENT ALONG WITH SKIN ISSUES WHICH ARE ADDRESSED AND THE INTERVENTIONS TO EACH. THE IV'S AND SEDATION IS ADDRESSED ON THE IV SPREAD SHEET ALONG WITH TITRATIONS TO EACH.THIS PT IS TOLERATING CURRENT VENT SETTINGS WITH SATURATION AT 100%. PT WAS TURNED AND REPOSITIONED FOR COMFORT AND CARE. NO ACUTE DISTRESS SEEN AT THIS TIME WILL CONTINUE MONITOR THIS PT
--- NOTE | 2020-09-10 20:29 | NUR ---
Patient intubated 7.5 ett secured at 27cm at the lip. No resp distress. Pt tolerating vent settings. Sx'd small amt of thick white secretions. Vent alarms set and audible. Continue to monitor. Addendum: 09/10/20 at 2034 by HERB RODRIGUEZ RT Amended: Links added.
[2020-09-10] MEDS: IV LR 1000 ML 1,000 ML IV PRN ×2 (20:35)
[2020-09-10] MEDS: MICAFUNGIN SODIUM 100 MG in IV NS 0.9% 100 ML IV SCH (20:56)
--- NOTE | 2020-09-10 22:00 | NUR ---
ICU/GERIATRIC PHYSICIAN PT WAS GIVEN ORAL CARE, ALONG WITH PM CARE AT THIS TIME. PT TOLERATED THIS WELL, PT REMAINS ON CURRENT VENT SETTINGS WITH SATURATION AT 100%. PT WAS TURNED AND REPOSITIONED FOR COMFORT AND CARE. WILL CONTINUE TO MONITOR THIS PT. NO ACUTE DISTRESS SEEN AT THIS TIME.
[2020-09-11] VITALS (57 sets, daily range): BP systolic 75–146; BP diastolic 51–106
--- NOTE | 2020-09-11 00:10 | NUR ---
ICU/SOLAR HOT WATER INSTALLER PT WAS TURNED AND REPOSITIONED FOR COMFORT AND CARE. WILL CONTINUE TO MONITOR THIS PT. NO ACUTE DISTRESS SEEN AT THIS TIME.
[2020-09-11] MEDS: ALBUTEROL FS 2.5 MG/0.5 ML VIAL.NEB NEB SCH ×4 (01:04→20:05)
[2020-09-11] MEDS: IPRATROPIUM NEB FS 0.5 MG/2.5 ML AMPUL.NEB NEB SCH ×4 (01:04→20:05)
[2020-09-11] MEDS: PROPOFOL 10MG/ML 50ML 50 ML IV PRN ×7 (01:27→22:59)
--- NOTE | 2020-09-11 02:15 | NUR ---
ICU/REFERENCE INVESTIGATOR PT WAS GIVEN ORAL CARE, ALONG WITH AM CARE AT THIS TIME. PT TOLERATED THIS WELL, PT REMAINS ON CURRENT VENT SETTINGS WITH SATURATION AT 100%. PT WAS TURNED AND REPOSITIONED FOR COMFORT AND CARE. WILL CONTINUE TO MONITOR THIS PT. NO ACUTE DISTRESS SEEN AT THIS TIME.
[2020-09-11] MEDS: PIPERACILLIN /TAZOBACTAM 3.375 G in IV D5W 100 ML IV SCH ×3 (03:26→21:00)
[2020-09-11] MEDS: HYDROCORTISONE SOD SUCCINATE 100 MG/2 ML VIAL IV SCH ×3 (03:26→17:48)
[2020-09-11] MEDS: NOREPINEPHRINE 8 MG in IV NS 0.9% 242 ML IV PRN ×2 (03:37→18:37)
[2020-09-11 04:29] LABS: BASOPHILS % (AUTO) 0.2 % (0.0-2.0); HEMATOCRIT 34 % (39-51); LYMPHOCYTES % (AUTO) 4.8 % (20.0-44.0); MEAN CORPUSCULAR HGB CONC 32 g/dl (31.0-36.0); MEAN CORPUSCULAR VOLUME 90 fL (80-96); MONOCYTES % (AUTO) 5.1 % (2.0-12.0); NEUTROPHILS # (AUTO) 18.4 K/uL (1.8-8.9); NEUTROPHILS % (AUTO) 89.9 % (43.0-81.0); PLATELET COUNT (AUTO) 495 K/uL (150-450); RED BLOOD CELL COUNT(AUTO) 3.79 MIL/uL (4.5-6.0); WHITE BLOOD COUNT (AUTO) 20.5 K/uL (4.3-11.0)
--- NOTE | 2020-09-11 04:30 | NUR ---
ICU/DEMAND GENERATOR MANAGER AM LABS AND CXR, AWAIT FOR ANY ABNORMAL LABS RESULTS THIS MORNING.
[2020-09-11 04:48] LABS: CALCIUM, SERUM 8.6 mg/dL (8.5-10.1); CREATININE 0.5 mg/dL (0.6-1.3); PHOSPHORUS 2.5 mg/dL (2.5-4.9); POTASSIUM 3.7 mmol/L (3.5-5.1)
[2020-09-11] MEDS: VANCOMYCIN 1 GM in IV D5W 250 ML IV SCH ×2 (05:19→18:00)
--- NOTE | 2020-09-11 07:30 | NUR ---
OPENING MEASUREMENT AND VERIFICATION ENGINEER NOTES PT IN BED SEMIFOWLERS INTUBATED AND SEDATED ON VENT SETTINGS ETT 7.5/27, AC 28, TV 450, FIO2 40%, PEEP 5, NO SIGN OF RESP DISTRESS OR SOB, BREATHING EVEN AND UNLABORED. PT TELE MONITOR READS SINUS RHYTHM 80'S- 90'S. LAURENT PICC INFUSING DIPRIVAN @ 40MCG/KG/MIN, LEVOPHED @ 0.02 MCG/KG/MIN AND LR @ 50ML/HR INFUSING WELL, NO S/S OF INFILTRATION OR INFECTION. SOW CATHETER WITH CLEAR YELLOW URINE DRAINING VIA GRAVITY. PT RIGHT NG TUBE RUNNING JEVITY 1.2 @ 35ML/HR, NO RESIDUALS NOTED. ALL SAFETY MEASURES IN PLACE, WILL CONT TO MONITOR Addendum: 09/11/20 at 1031 by CATHY RIZO RN PT CURRENTLY SEDATED AND NOT ON RESTRAINTS
[2020-09-11] MEDS: GABAPENTIN 300 MG CAPSULE PO SCH ×3 (09:19→17:47)
[2020-09-11] MEDS: DOCUSATE SODIUM LIQ 100 MG/10 ML UDC GT SCH ×2 (09:19→17:00)
[2020-09-11] MEDS: FERROUS SULFATE (325 MG) 325 MG/TAB TABLET PO SCH ×2 (09:19→17:47)
[2020-09-11] MEDS: ASPIRIN 81 MG TAB.CHEW PO SCH (09:19)
[2020-09-11] MEDS: MEGESTROL ACETATE SUSP 400 MG/10 ML UDC PO SCH ×2 (09:19→17:48)
[2020-09-11] MEDS: PANTOPRAZOLE 40 MG/PACK PACK GT SCH (09:19)
[2020-09-11] MEDS: PROSOURCE / PROSTAT (PYXIS) 30 ML UDC GT SCH (09:20)
[2020-09-11] MEDS: MINERAL OIL/PETROLATUM,WHITE 120 GM JAR TP SCH (09:21)
[2020-09-11] MEDS: CLOTRIMAZOLE 1% 15 GM TUBE TP SCH ×2 (09:21→17:00)
[2020-09-11] MEDS: IV LR 1000 ML 1,000 ML IV PRN (17:59)
[2020-09-11] MEDS ORDERED: PROPOFOL 10MG/ML 50ML 50 ML IV PRN (18:00)
--- NOTE | 2020-09-11 18:13 | NUR ---
LESLEY FLYNN TROUGH OF 23, NO ADMIN OF RINA
--- NOTE | 2020-09-11 19:00 | NUR ---
PUBLIC ADDRESS SYSTEM MECHANIC CLOSING NOTE PT IN STABLE CONDITION, ON SAME VENT SETTINGS PER MD ORDER, DIPRIVAN INCREASED TO 55 MCG/KG/MIN, PT SEDATED AND NOT AGITATED ANYMORE, LEVO RESTARTED AT 0.02 MCG/KG/MIN D/T MAP LESS THAN 65. PT TO HAVE PEG AND TRACH PLACEMENT, NEED TRACH PLACEMENT CONSENT. ALL PT SAFETY PRECAUTIONS IN PLACE. RUSS ENDORSED TO DIRECTOR MEDICAL ECONOMICS RN
--- NOTE | 2020-09-11 19:15 | NUR ---
MAINFRAME SOFTWARE DEVELOPER LEVOPHED TITRATED UP TO 0.03 MCG/KG/MIN PER PROTOCOL FOR BP 86/63
--- NOTE | 2020-09-11 19:30 | NUR ---
ER REGISTRAR PT VERY SEDATED PROPOFOL TIRATED TO 50 MCG/KG/MIN
--- NOTE | 2020-09-11 19:30 | NUR ---
CONSULTING GROUP ANALYST LEVOPHED TITRATED UP TO 0.1 MCG/KG/MIN PER PROTOCOL FOR BP 75/51. Addendum: 09/11/20 at 2115 by RENETTA DUONG RN 0.04 MCG/KG/MIN
--- NOTE | 2020-09-11 19:45 | NUR ---
SPECIAL LIBRARIAN LEVOPHED TITRATED TO 0.04 MCG/KG/MIN PER PROTOCOL FOR BP 95/76
[2020-09-11] MEDS: MICAFUNGIN SODIUM 100 MG in IV NS 0.9% 100 ML IV SCH (20:00)
--- NOTE | 2020-09-11 20:00 | NUR ---
FEED INSPECTION SUPERVISOR LEVOPHED TITRATED TO 0.03 MCG/KG/MIN PER PROTOCOL FOR BP 146/101
--- NOTE | 2020-09-11 20:00 | NUR ---
SQL SERVER DBA DEVELOPER PT VERY SEDATED PROPOFOL TIRATED TO 45 MCG/KG/MIN
--- NOTE | 2020-09-11 21:15 | NUR ---
COMPRESSED GAS EQUIPMENT MECHANIC PT AGITATED PROPOFOL TIRATED TO 50 MCG/KG/MIN
--- NOTE | 2020-09-11 21:45 | NUR ---
INSURANCE ADJUSTER PT AGITATED PROPOFOL TIRATED TO 55 MCG/KG/MIN
--- NOTE | 2020-09-11 22:38 | NUR ---
INDUSTRIAL MAINTENANCE MANAGER RCD CALL FROM DR DUBOSE WITH ORDER TO PLACE PT NPO P MIDNIGHT FOR POSSIBLE TRACH. MD WOULD ALSO BIOETHICS MEETING ON PT IF POSSIBLE. ORDER PLACED.
[2020-09-12] VITALS (92 sets, daily range): BP systolic 86–187; BP diastolic 33–117
[2020-09-12] MEDS: ALBUTEROL FS 2.5 MG/0.5 ML VIAL.NEB NEB SCH ×4 (01:17→19:46)
[2020-09-12] MEDS: IPRATROPIUM NEB FS 0.5 MG/2.5 ML AMPUL.NEB NEB SCH ×4 (01:17→19:46)
[2020-09-12] MEDS: PROPOFOL 10MG/ML 50ML 50 ML IV PRN ×6 (01:30→16:22)
[2020-09-12] MEDS ORDERED: VANCOMYCIN 0.75 GM in IV D5W 250 ML IV SCH (02:00)
[2020-09-12] MEDS: PIPERACILLIN /TAZOBACTAM 3.375 G in IV D5W 100 ML IV SCH ×3 (03:15→20:59)
[2020-09-12] MEDS: HYDROCORTISONE SOD SUCCINATE 100 MG/2 ML VIAL IV SCH ×4 (03:15→18:26)
[2020-09-12 04:24] LABS: BASOPHILS % (AUTO) 0.1 % (0.0-2.0); HEMATOCRIT 36 % (39-51); HEMOGLOBIN 11.4 g/dL (13.5-17.5); LYMPHOCYTES # (AUTO) 1.4 K/uL (0.8-4.8); LYMPHOCYTES % (AUTO) 5.6 % (20.0-44.0); MEAN CORPUSCULAR HGB CONC 32 g/dl (31.0-36.0); MEAN CORPUSCULAR VOLUME 90 fL (80-96); MONOCYTES # (AUTO) 1.2 K/uL (0.1-1.30); MONOCYTES % (AUTO) 4.7 % (2.0-12.0); NEUTROPHILS # (AUTO) 22.5 K/uL (1.8-8.9); NEUTROPHILS % (AUTO) 89.6 % (43.0-81.0); PLATELET COUNT (AUTO) 578 K/uL (150-450); RED BLOOD CELL COUNT(AUTO) 3.95 MIL/uL (4.5-6.0); WHITE BLOOD COUNT (AUTO) 25.2 K/uL (4.3-11.0)
[2020-09-12 04:44] LABS: CALCIUM, SERUM 8.6 mg/dL (8.5-10.1); CREATININE 0.4 mg/dL (0.6-1.3); MAGNESIUM 2.1 mg/dL (1.8-2.4); PHOSPHORUS 2.7 mg/dL (2.5-4.9); POTASSIUM 3.6 mmol/L (3.5-5.1)
--- NOTE | 2020-09-12 06:56 | NUR ---
ELEMENTARY SCIENCE TEACHER NO NG TUBE FLUSHES AFTER MIDNIGHT PT IS NPO
--- NOTE | 2020-09-12 07:35 | NUR ---
ICU/RN PT IS SEDATED ON DIPRIVAN.INTUBATED SECOND TIME ON THE VENT AC MODE,FIO2-40%,SAT 02-100%.ON LEVOPHED DRIP.NG TUBE CLAMPED .NPO.WAITING FOR THE TRACHEOSTOMY AND PEG PLACEMENT.RIGHT UPPER ARM PICC LINE.F/C IN PLACE DRAINING WITH RO URINE.GENERALIZED EDEMA PRESENT .LOWER BACK COVERED WITH DRESSING.SUCTION PROVIDED.REPOSITION FOR COMFORT.LABS REVIEW. AWARE.
[2020-09-12] MEDS: MEGESTROL ACETATE SUSP 400 MG/10 ML UDC PO SCH ×2 (08:20→17:03)
[2020-09-12] MEDS: FERROUS SULFATE (325 MG) 325 MG/TAB TABLET PO SCH ×2 (08:20→17:03)
[2020-09-12] MEDS: MINERAL OIL/PETROLATUM,WHITE 120 GM JAR TP SCH (08:20)
[2020-09-12] MEDS: GABAPENTIN 300 MG CAPSULE PO SCH ×3 (08:20→17:03)
[2020-09-12] MEDS: DOCUSATE SODIUM LIQ 100 MG/10 ML UDC GT SCH ×2 (08:21→16:23)
[2020-09-12] MEDS: PROSOURCE / PROSTAT (PYXIS) 30 ML UDC GT SCH (08:21)
[2020-09-12] MEDS: ASPIRIN 81 MG TAB.CHEW PO SCH (08:21)
[2020-09-12] MEDS: PANTOPRAZOLE 40 MG/PACK PACK GT SCH (08:21)
[2020-09-12] MEDS: CLOTRIMAZOLE 1% 15 GM TUBE TP SCH ×2 (08:21→17:05)
[2020-09-12] MEDS: IV LR 1000 ML 1,000 ML IV PRN (10:40)
[2020-09-12] MEDS ORDERED: ANESTHESIA TRAY IN PYXIS 1 EA TRAY MC ONE (11:49)
[2020-09-12] MEDS ORDERED: MIDAZOLAM HCL 2 MG/2ML VIAL ONE (13:54)
[2020-09-12] MEDS ORDERED: ROCURONIUM BROMIDE 50 MG/5 ML ONE (13:54)
--- NOTE | 2020-09-12 15:45 | NUR ---
ICU/RN PT IS BACK FROM OR.NEW TRACHEOSTOMY SHILY 8. SMALL AMOUNT OF BLOODY DISCHARGE NOTED.
[2020-09-12] MEDS: NOREPINEPHRINE 8 MG in IV NS 0.9% 242 ML IV PRN (17:04)
[2020-09-12] MEDS: IV NS 0.9% 250 ML IV PRN (17:13)
--- NOTE | 2020-09-12 18:00 | NUR ---
ICU/RN PM CARE PROVIDED. WOUND DRESSING DONE ORDERED.DUE MEDS ARE GIVEN.DIPRIVAN END.G-TUBE RESTARTED.CONTINUE MONITORING.
--- NOTE | 2020-09-12 18:30 | NUR ---
ICU/RN PT C/O OF PAIN .MORPHINE 5 MG IV GIVEN ORDERED.
[2020-09-12] MEDS: MORPHINE SULFATE INJ 2 MG/ML DISP.SYRIN IV PRN (18:32)
[2020-09-12] MEDS: MICAFUNGIN SODIUM 100 MG in IV NS 0.9% 100 ML IV SCH (20:10)
[2020-09-13] VITALS (78 sets, daily range): BP systolic 26–141; BP diastolic 15–95
[2020-09-13] MEDS: IPRATROPIUM NEB FS 0.5 MG/2.5 ML AMPUL.NEB NEB SCH ×4 (01:01→19:55)
[2020-09-13] MEDS: ALBUTEROL FS 2.5 MG/0.5 ML VIAL.NEB NEB SCH ×4 (01:01→19:55)
[2020-09-13] MEDS: PIPERACILLIN /TAZOBACTAM 3.375 G in IV D5W 100 ML IV SCH ×3 (03:02→20:05)
[2020-09-13] MEDS: HYDROCORTISONE SOD SUCCINATE 100 MG/2 ML VIAL IV SCH ×3 (03:06→18:07)
[2020-09-13 05:20] LABS: BASOPHILS % (AUTO) 0.1 % (0.0-2.0); HEMATOCRIT 33 % (39-51); HEMOGLOBIN 10.8 g/dL (13.5-17.5); LYMPHOCYTES # (AUTO) 0.8 K/uL (0.8-4.8); LYMPHOCYTES % (AUTO) 4.8 % (20.0-44.0); MEAN CORPUSCULAR HGB CONC 33 g/dl (31.0-36.0); MEAN CORPUSCULAR VOLUME 90 fL (80-96); MONOCYTES # (AUTO) 0.7 K/uL (0.1-1.30); MONOCYTES % (AUTO) 4.2 % (2.0-12.0); NEUTROPHILS % (AUTO) 90.9 % (43.0-81.0); PLATELET COUNT (AUTO) 322 K/uL (150-450); RED BLOOD CELL COUNT(AUTO) 3.67 MIL/uL (4.5-6.0); WHITE BLOOD COUNT (AUTO) 16.5 K/uL (4.3-11.0)
[2020-09-13 05:48] LABS: CALCIUM, SERUM 8.5 mg/dL (8.5-10.1); CREATININE 0.4 mg/dL (0.6-1.3); PHOSPHORUS 2.8 mg/dL (2.5-4.9); POTASSIUM 3.5 mmol/L (3.5-5.1)
[2020-09-13] MEDS: IV NS 0.9% 250 ML IV PRN (05:55)
[2020-09-13] MEDS: IV LR 1000 ML 1,000 ML IV PRN ×2 (05:55→14:27)
[2020-09-13] MEDS: MORPHINE SULFATE INJ 2 MG/ML DISP.SYRIN IV PRN ×3 (07:30→18:11)
[2020-09-13] MEDS: PROSOURCE / PROSTAT (PYXIS) 30 ML UDC GT SCH (07:30)
[2020-09-13] MEDS: PANTOPRAZOLE 40 MG/PACK PACK GT SCH (07:31)
[2020-09-13] MEDS: ASPIRIN 81 MG TAB.CHEW PO SCH (07:31)
[2020-09-13] MEDS: FERROUS SULFATE UDC 300 MG/5 ML UDC PO SCH ×2 (07:31→16:25)
[2020-09-13] MEDS: GABAPENTIN 300 MG CAPSULE PO SCH ×3 (07:31→16:26)
[2020-09-13] MEDS: MEGESTROL ACETATE SUSP 400 MG/10 ML UDC PO SCH ×2 (07:31→16:25)
--- NOTE | 2020-09-13 07:45 | NUR ---
ICU/RN PT HAS NEW TRACH ON THE VENT AC MODE,FIO2-40%.SAT O2-100%.V/SSTABLE AFEBRILE.PT IS AWAKE,ALERT.C/O OF PAIN MORPHINE SULFATE IV GIVEN. AFEBRILE.RIGHT UPPER ARM PICC LINE.IV INFUSING ORDERED.NG TUBE CLAMPED,PT IS NPO.WAITING FOR G-TUBE PLACEMENT. F/C IN PLACE DRAINING WITH YELLOW URINE .GENERELAIZED EDEMA PRESENT.SACRAL WOUND COVERED WITH DRESSING.
[2020-09-13] MEDS: MINERAL OIL/PETROLATUM,WHITE 120 GM JAR TP SCH (08:45)
[2020-09-13] MEDS: CLOTRIMAZOLE 1% 15 GM TUBE TP SCH ×2 (08:46→16:27)
--- NOTE | 2020-09-13 09:00 | NUR ---
ICU/RN DUE MEDS ARE GIVEN ORDERED.
[2020-09-13] MEDS ORDERED: ANESTHESIA TRAY IN PYXIS 1 EA TRAY MC ONE (10:51)
--- NOTE | 2020-09-13 11:40 | NUR ---
ICU/RN NEW G-TUBE PLACED BY DR JIMENEZ.
--- NOTE | 2020-09-13 12:30 | NUR ---
ICU/RN PTC/O OF ABDOMINAL PAIN 9-12/07.MORPHINE SULFATE IV GIVEN ORDERED.
--- NOTE | 2020-09-13 13:00 | NUR ---
ICU/RN BP 59/40.LEVOPHED RESTARTED.
[2020-09-13] MEDS: LORAZEPAM INJ 2 MG/ML VIAL IV PRN ×2 (13:07→21:33)
--- NOTE | 2020-09-13 13:10 | NUR ---
ICU/RN PT IS AGITATED.ATIVAN GIVEN ORDERED.CONTINUE MONITORING.
[2020-09-13] MEDS: NOREPINEPHRINE 8 MG in IV NS 0.9% 242 ML IV PRN (16:26)
--- NOTE | 2020-09-13 17:30 | NUR ---
ICU/RN PM CARE PROVIDED.WOUND CARE DONE ORDERED.DUE MEDS ARE GIVEN ORDERED.
--- NOTE | 2020-09-13 18:15 | NUR ---
ICU/RN PT C/O OF PAIN -12/07.MORPHINE SULFATE 5 MG IV GIVEN ORDERED.REPOSITION FOR COMFORT.
--- NOTE | 2020-09-13 19:31 | NUR ---
CARPENTER ASSISTANT INSTALLER OPENING NOTES: Rec'd pt in bed, A&Ox1. On trach to mechanical vent tolerating settings well. No resp distress noted at this time. SR w/ BBB on tele monitor. GT site patent and flushed, clamped. Currently NPO dx, but ok to give meds. To resume tube feedings in am. LAURENT PICC line patent and flushed w/ Lactated Ringers infusing at 40ml/hr and Levo at 0.02mcg/kg/min. Will titrate per protocol. Scott cath in place patent and draining urine via gravity. Safety measures in place. Will continue to monitor.
--- NOTE | 2020-09-13 19:55 | NUR ---
RCVD PT WITH TRACH SHILEY 8, ON VENT WITH NOTED VENT SETTINGS, ALARMS ARE SET AND AUDIBLE. VENT PLUGGED INTO RED OUTLET. PT IS ALERT AND AWAKE. Q6 BREATHING TX GIVEN PER MD'S ORDER, NO ADVERSE REACTION NOTED. SUCTIONED FOR MINIMAL AMT SECRETIONS, EQUAL CHEST RISE NOTED, AMBU BAG AT THE BEDSIDE. WILL CONTINUE TO MONITOR T/O SHIFT.
--- NOTE | 2020-09-13 20:22 | NUR ---
Pt refusing to stay still for accurate bp and pulse ox readings. Educated pt on importance of readings and pt mouthed "fuck you".
[2020-09-13] MEDS: MICAFUNGIN SODIUM 100 MG in IV NS 0.9% 100 ML IV SCH (21:10)
--- NOTE | 2020-09-13 21:38 | NUR ---
WINDOW CLERK NOTE: Pt is very agitated, Ativan 1mg/0.5ml IVP given as ordered. Will continue to monitor.
--- NOTE | 2020-09-13 23:57 | NUR ---
VENDING MACHINE HOST/HOSTESS NOTE: Resumed Levophed drip as pt's BP 26/15. Will continue to monitor.
[2020-09-14] VITALS (92 sets, daily range): BP systolic 32–255; BP diastolic 14–215
--- NOTE | 2020-09-14 00:30 | NUR ---
HYDROELECTRIC PLANT OPERATOR NOTE: Pt's new GT site noted to be oozing a moderate amount of clear, slightly pink tinged output. Dressing applied w/ pressure and reinforced. Charge nurse, Ed aware. Will continue to monitor.
[2020-09-14] MEDS: MORPHINE SULFATE INJ 2 MG/ML DISP.SYRIN IV PRN ×3 (01:01→13:51)
--- NOTE | 2020-09-14 01:10 | NUR ---
CAGE FIGHTER NOTE: Pt c/o 10/07 abd pain. Morphine 5mg IVP PRN given as ordered. Will continue to monitor.
[2020-09-14] MEDS: IPRATROPIUM NEB FS 0.5 MG/2.5 ML AMPUL.NEB NEB SCH ×4 (01:30→20:02)
[2020-09-14] MEDS: ALBUTEROL FS 2.5 MG/0.5 ML VIAL.NEB NEB SCH ×4 (01:30→20:02)
[2020-09-14] MEDS: PIPERACILLIN /TAZOBACTAM 3.375 G in IV D5W 100 ML IV SCH ×3 (03:31→20:00)
[2020-09-14] MEDS: HYDROCORTISONE SOD SUCCINATE 100 MG/2 ML VIAL IV SCH ×3 (03:32→18:48)
[2020-09-14 04:57] LABS: HEMATOCRIT 33 % (39-51); HEMOGLOBIN 10.8 g/dL (13.5-17.5); LYMPHOCYTES # (AUTO) 1.2 K/uL (0.8-4.8); LYMPHOCYTES % (AUTO) 5.5 % (20.0-44.0); MEAN CORPUSCULAR HGB CONC 33 g/dl (31.0-36.0); MEAN CORPUSCULAR VOLUME 89 fL (80-96); MONOCYTES # (AUTO) 1.1 K/uL (0.1-1.30); NEUTROPHILS # (AUTO) 18.9 K/uL (1.8-8.9); NEUTROPHILS % (AUTO) 89.5 % (43.0-81.0); PLATELET COUNT (AUTO) 373 K/uL (150-450); RED BLOOD CELL COUNT(AUTO) 3.69 MIL/uL (4.5-6.0); WHITE BLOOD COUNT (AUTO) 21.1 K/uL (4.3-11.0)
[2020-09-14 05:11] LABS: CALCIUM, SERUM 8.6 mg/dL (8.5-10.1); CREATININE 0.6 mg/dL (0.6-1.3); PHOSPHORUS 3.1 mg/dL (2.5-4.9); POTASSIUM 3.5 mmol/L (3.5-5.1)
[2020-09-14] MEDS: IV NS 0.9% 250 ML IV PRN (05:42)
[2020-09-14] MEDS: IV LR 1000 ML 1,000 ML IV PRN ×2 (05:51→22:45)
--- NOTE | 2020-09-14 06:53 | NUR ---
RADIO STATION OPERATOR NOTE: Pt continues to refuse to stay still for accurate BP and pulse ox readings throughout shift. Educated pt on importance of accurate readings and pt continues to refuse to listen.
--- NOTE | 2020-09-14 08:00 | NUR ---
RN NOTES RECEIVED PT HAS NEW TRACH ON THE VENT AC MODE,FIO2-40%. PEEP-5.SATURATION O2-100%, BEDSIDE MONITOR SHOWS SR HR- 79, WITH AFEBRILE.PT IS AWAKE, ANXIOUS KEEP MOVING HEAD, AND ASKING REAL FOOD. RIGHT UPPER ARM PICC LINE IV INFUSING ORDERED.NG TUBE CLAMPED,PT IS NPO. PATIENT DRAINING FROM GT AREA. APPLIED PRESSURE DRESSING. F/C IN PLACE DRAINING WITH DARK YELLOW OUTPUT . GENERALIZED EDEMA PRESENT.SACRAL WOUND COVERED WITH DRESSING. ASSIST TURN AND REPOSTION Q 2 HR, ASSIST TURN AND REPOSTION. USING PILLOWS TO ELEVATED UPPER, AND LOWER EXTREMITIES. WILL CONTINUED MONITORING.
[2020-09-14] MEDS: ASPIRIN 81 MG TAB.CHEW PO SCH (09:00)
[2020-09-14] MEDS: PANTOPRAZOLE 40 MG/PACK PACK GT SCH (09:00)
[2020-09-14] MEDS: GABAPENTIN 300 MG CAPSULE PO SCH ×3 (09:00→17:00)
[2020-09-14] MEDS: MEGESTROL ACETATE SUSP 400 MG/10 ML UDC PO SCH ×2 (09:00→17:00)
[2020-09-14] MEDS: FERROUS SULFATE UDC 300 MG/5 ML UDC PO SCH ×2 (09:00→17:00)
[2020-09-14] MEDS: PROSOURCE / PROSTAT (PYXIS) 30 ML UDC GT SCH (09:00)
[2020-09-14] MEDS ORDERED: DIATR MEGLU/DIATRIZOATE SODIUM 30 ML BOTTLE (GASTROGRAPHIN) ONE (09:02)
--- NOTE | 2020-09-14 09:15 | NUR ---
rn notes Keep NPO for now and keep PEG to gravity drainage. KUB to assess PEG positioning. Start albumin 25 g q6h for 3 days to help with ascites and third spacing.
[2020-09-14] MEDS: MINERAL OIL/PETROLATUM,WHITE 120 GM JAR TP SCH (09:54)
[2020-09-14] MEDS: CLOTRIMAZOLE 1% 15 GM TUBE TP SCH ×2 (09:55→17:49)
[2020-09-14] MEDS: ALBUMIN 25% 25 GM in PREMIX 1 EA IV SCH ×3 (09:56→22:45)
[2020-09-14] MEDS: LORAZEPAM INJ 2 MG/ML VIAL IV PRN (10:51)
--- NOTE | 2020-09-14 10:51 | NUR ---
RN NOTES ADMINISTERED ATIVAN 1MG/ML IV PUSH FOR ANXIETY, BP 105/ 66, P-95. WILL MONITORING.
--- NOTE | 2020-09-14 13:20 | NUR ---
rn notes patientss brother next to the bed at this time name Trent, and make decision about POLST, and wanted to talk to the hospitalist. Notified Dr May. According hospitalist she will give call brother tomorrow. Brothers information taken, and on patents demographic data sheet.
--- NOTE | 2020-09-14 13:51 | NUR ---
RN NOTES ADMINISTERED MORPHINE SULFATE 2.5 MG/ML IV PUSH FOR PAIN 12/07 PER PATIENT REQUEST. BP-97/63, P-89. WILL MONITORING.
--- NOTE | 2020-09-14 18:30 | NUR ---
RN NOTES PM CARE DONE, SUCTION, MOUTH CARE . DUE MEDICATION ADMINISTERED, INFUSING LR @40ML/HR, , AND TKO ON RIGHT PICC LINE INTACT. PATIENT NPO , AND KEEP PEG TO GRAVITY DRAINING. PATIENT KEEP MOVING HEAD . TRACHEA /VENT INTACT. NO ACUTE RESPIRATORY DISTRESS. PATIENT HAS GENERALIZED EDEMA. SOW DRAINING VIA GRAVITY. ASSIST TURN AND REPOSTION Q2 HR. MEDICATION WERE ADMINISTERED FOR PAIN EFFECTIVE. ENDORSED ONCOMING NURSE FOLLOW PLAN OF CARE.
--- NOTE | 2020-09-14 19:30 | NUR ---
SILK WORKER PT W/DX RESP FAIL. GERRY 8. AC 28 450 40% +5. NSR ON MONITOR. PT REPEATEDLY NODDING NO. ASKING FOR FOOD AND WATER. GTUBE SITE LEAKING. SOW CATH DRAINING DARK RO URINE. SACRAL DTI W/MEPILEX IN PLACE. LAURENT PICC PATENT W/GOOD BLOOD RETURN.
[2020-09-14] MEDS: MICAFUNGIN SODIUM 100 MG in IV NS 0.9% 100 ML IV SCH (20:00)
[2020-09-14] MEDS: DOXYCYCLINE 100 MG in IV D5W 100 ML IV SCH (21:00)
--- NOTE | 2020-09-14 22:00 | NUR ---
VP PRODUCTION RENDERED ORAL CARE; PT CONTINUES TO ASK FOR FOOD AND WATER.
[2020-09-15] VITALS (43 sets, daily range): BP systolic 59–193; BP diastolic 29–103
[2020-09-15] MEDS: ALBUTEROL FS 2.5 MG/0.5 ML VIAL.NEB NEB SCH ×4 (01:26→20:05)
[2020-09-15] MEDS: IPRATROPIUM NEB FS 0.5 MG/2.5 ML AMPUL.NEB NEB SCH ×4 (01:26→20:05)
[2020-09-15] MEDS: PIPERACILLIN /TAZOBACTAM 3.375 G in IV D5W 100 ML IV SCH ×3 (03:00→20:18)
[2020-09-15] MEDS: HYDROCORTISONE SOD SUCCINATE 100 MG/2 ML VIAL IV SCH ×3 (03:00→18:43)
[2020-09-15] MEDS: ALBUMIN 25% 25 GM in PREMIX 1 EA IV SCH (03:00)
[2020-09-15 04:28] LABS: HEMATOCRIT 27 % (39-51); HEMOGLOBIN 8.9 g/dL (13.5-17.5); LYMPHOCYTES # (AUTO) 0.9 K/uL (0.8-4.8); LYMPHOCYTES % (AUTO) 6.6 % (20.0-44.0); MEAN CORPUSCULAR HGB CONC 32 g/dl (31.0-36.0); MEAN CORPUSCULAR VOLUME 90 fL (80-96); MONOCYTES # (AUTO) 0.5 K/uL (0.1-1.30); MONOCYTES % (AUTO) 3.9 % (2.0-12.0); NEUTROPHILS # (AUTO) 11.4 K/uL (1.8-8.9); NEUTROPHILS % (AUTO) 89.5 % (43.0-81.0); PLATELET COUNT (AUTO) 248 K/uL (150-450); RED BLOOD CELL COUNT(AUTO) 3.06 MIL/uL (4.5-6.0); WHITE BLOOD COUNT (AUTO) 12.8 K/uL (4.3-11.0)
[2020-09-15 04:43] LABS: ALBUMIN 2.7 g/dL (3.4-5.0); BILIRUBIN,DIRECT 0.2 mg/dL (0.0-0.2); BILIRUBIN,TOTAL 0.8 mg/dL (0.2-1.0); CALCIUM, SERUM 8.8 mg/dL (8.5-10.1); CREATININE 0.5 mg/dL (0.6-1.3); MAGNESIUM 2.1 mg/dL (1.8-2.4); PHOSPHORUS 2.9 mg/dL (2.5-4.9); TOTAL PROTEIN, SERUM 5.1 g/dL (6.4-8.2)
--- NOTE | 2020-09-15 06:42 | NUR ---
SHIP SUPERINTENDENT G TUBE SITE CONTINUED TO LEAK ALL SHIFT. 3 ABD PADS AND TOWELS CHANGED EACH HOUR. SKIN CARE PROVIDED NEEDED.
--- NOTE | 2020-09-15 08:00 | NUR ---
RN NOTES RECEIVED PATIENT PT W/DX RESP FAIL. GERRY 8. AC 28, TV - 450 , FIO2-40%, PEEP- +5. PATIENT HAS NO ACUTE RESPIRATORY DISTRESS, WAS COMPLAINING OF GENERALIZED PAIN. KEEP MOVING HEAD LEFT AND RIGHT. ON BEDSIDE MONITOR SHOWS HR 57 . ASKING FOR FOOD AND WATER. GTUBE SITE LEAKING. PEG IG DRAINING FROM GRAVITY. SOW CATH DRAINING DARK RO URINE. SACRAL DTI W/MEPILEX IN PLACE, PICTURE TAKEN. NEEDS ATTENDED AND ANTICIPATED. ASSIST TURN AND REPOSTION Q 2 HR. LAURENT PICC PATENT W/GOOD BLOOD RETURN, INFUSING LR-40ML/HR. WILL MONITORING.
[2020-09-15] MEDS: ASPIRIN 81 MG TAB.CHEW PO SCH (08:37)
[2020-09-15] MEDS: PROSOURCE / PROSTAT (PYXIS) 30 ML UDC GT SCH (08:37)
[2020-09-15] MEDS: PANTOPRAZOLE 40 MG/PACK PACK GT SCH (08:37)
[2020-09-15] MEDS: GABAPENTIN 300 MG CAPSULE PO SCH ×3 (08:38→17:00)
[2020-09-15] MEDS: FERROUS SULFATE UDC 300 MG/5 ML UDC PO SCH ×2 (08:38→17:00)
[2020-09-15] MEDS: MEGESTROL ACETATE SUSP 400 MG/10 ML UDC PO SCH ×2 (08:38→17:00)
[2020-09-15] MEDS: CLOTRIMAZOLE 1% 15 GM TUBE TP SCH ×2 (08:40→17:31)
[2020-09-15] MEDS: MINERAL OIL/PETROLATUM,WHITE 120 GM JAR TP SCH (08:40)
[2020-09-15] MEDS: DOXYCYCLINE 100 MG in IV D5W 100 ML IV SCH ×2 (08:41→21:44)
[2020-09-15] MEDS: MORPHINE SULFATE INJ 2 MG/ML DISP.SYRIN IV PRN ×3 (08:54→18:44)
--- NOTE | 2020-09-15 08:54 | NUR ---
RN NOTES ADMINISTERED MORPHINE SULFATE 5MG/ML IV PUSH FOR GENERALIZED PAIN, UNABLE TO ASSESS, PATIENT ANXIOUS, MOVING, BP 185/99, 68, R-20. WILL MONITORING.
--- NOTE | 2020-09-15 09:40 | NUR ---
RT PER DR TOURE RR ON VENT LOWERED TO 16. Addendum: 09/15/20 at 1537 by ROGER BAUER RT Amended: Links added.
--- NOTE | 2020-09-15 11:52 | NUR ---
RN NOTE. ADMINISTERED MEDICATION PER ORDER FOR PAIN EFFECTIVE. CHANGED ABD DRESSING. TURNED AND REPOSITIONED PATIENT Q2 HR. REINFORCED DRESSING AROUND GTUBE.
--- NOTE | 2020-09-15 12:02 | NUR ---
RN NOTE GOT CALL FROM PT BROTHER (FREIDA) [phone]. NOTIFIED TO MD MATAMOROS ABOUT THE PATIENT POLST STATUS.
--- NOTE | 2020-09-15 12:29 | NUR ---
RN NOTE ADMINISTERED MORPHINE 5MG IV PUSH FOR PAIN PATIENT REQUEST. UNABLE TO SCALE PAIN DUE TO TV. BP 114/80 PUSLE 65 RR 14. HOLD SCHEDULED PO MEDICATION DUE TO NPO. WILL REASSESS PAIN AFTER MED.
[2020-09-15] MEDS: Potassium Chloride 30 MEQ in IV D5/0.45 NACL 1,000 ML IV PRN (12:39)
--- NOTE | 2020-09-15 12:47 | NUR ---
RN NOTE STARTED NEW IV FLUID. K30MEQ IN D5 1/2 NS 40ML / HR. CHANGED TUBING AND LABELED.
--- NOTE | 2020-09-15 17:36 | NUR ---
RN NOTE PROVIDED ORAL CARE PER PT REQUEST. CHECKED GTUBE SITE AND CHANGED THE DRESSING. VSS AND PT IS CALM AND STABLE. WILL KEEP MONITORING AT THIS TIME.
--- NOTE | 2020-09-15 18:44 | NUR ---
RN NOTE RE ASSESSED PATIENT. MORPHINE ADMINISTERED PER PT REQUEST. VSS IN WDL. TURNED AND REPOSITIONED. CHECKED GTUBE SITE AND REINFORCE DRAINAGE PAD.
--- NOTE | 2020-09-15 19:40 | NUR ---
RN OPENING NOTE RECD PT IN BED, AWAKE. NONVERBAL. PT IS ABLE TO OPEN EYES AND MOUTH WORDS. PT IS TRACH TO VENT. SHILEY 8 AC 16 TV 450 FIO2 40% AND PEEP OF 5 ORDERED TOLERATING WELL. NO SOB NO RESP DISTRESS NOTED. O2 SATURATION IS 100% AT THIS TIME. PT ON CARDIAC MONITORING PRESENTS WITH SINUS RHYTHM WITH OCCASIONAL ELEVATED P INVERTED TWAVES PVCS AND PACS. WITH HEART RATE OF 86 AT THIS TIME. LAURENT PICC GOOD BLOOD RETURN FLUSHED ASEPTICALLY. IV FLUIDS D5 1/2 NS WITH KCL 30MEQ RUNNING AT 40ML/HR ORDERED. NO S/S OF INFILTRATION NOTED. PT HAS GTUBE CLAMPED AT THIS TIME, DRAINING TO GRAVITY, LEAKING. PT NPO. PT DENIES PAIN. AFEBRILE AT THIS TIME. SAFETY MEASURES IN PLACE. HOB ELEVATED. SIDE RAILS UP X3, BED LOCKED IN LOWEST POSITION. BED ALARM ON. WILL CONTINUE TO MONITOR CLOSELY THROUGHOUT SHIFT.
[2020-09-15] MEDS: MICAFUNGIN SODIUM 100 MG in IV NS 0.9% 100 ML IV SCH (20:29)
[2020-09-16] VITALS (31 sets, daily range): BP systolic 119–151; BP diastolic 59–106
[2020-09-16] MEDS: IPRATROPIUM NEB FS 0.5 MG/2.5 ML AMPUL.NEB NEB SCH ×4 (01:58→20:04)
[2020-09-16] MEDS: ALBUTEROL FS 2.5 MG/0.5 ML VIAL.NEB NEB SCH ×4 (01:58→20:04)
[2020-09-16] MEDS: HYDROCORTISONE SOD SUCCINATE 100 MG/2 ML VIAL IV SCH ×3 (02:52→20:14)
[2020-09-16 04:30] LABS: BASOPHILS % (AUTO) 0.1 % (0.0-2.0); HEMATOCRIT 34 % (39-51); HEMOGLOBIN 10.9 g/dL (13.5-17.5); LYMPHOCYTES # (AUTO) 1.1 K/uL (0.8-4.8); LYMPHOCYTES % (AUTO) 7.1 % (20.0-44.0); MEAN CORPUSCULAR HGB CONC 33 g/dl (31.0-36.0); MEAN CORPUSCULAR VOLUME 90 fL (80-96); MONOCYTES # (AUTO) 0.6 K/uL (0.1-1.30); NEUTROPHILS # (AUTO) 13.2 K/uL (1.8-8.9); NEUTROPHILS % (AUTO) 88.8 % (43.0-81.0); PLATELET COUNT (AUTO) 295 K/uL (150-450); RED BLOOD CELL COUNT(AUTO) 3.72 MIL/uL (4.5-6.0); WHITE BLOOD COUNT (AUTO) 14.9 K/uL (4.3-11.0)
[2020-09-16 04:35] LABS: CALCIUM, SERUM 8.8 mg/dL (8.5-10.1); CREATININE 0.5 mg/dL (0.6-1.3); MAGNESIUM 2.1 mg/dL (1.8-2.4); PHOSPHORUS 2.7 mg/dL (2.5-4.9); POTASSIUM 2.9 mmol/L (3.5-5.1)
[2020-09-16] MEDS: IV NS 0.9% 250 ML IV PRN (05:11)
--- NOTE | 2020-09-16 06:10 | NUR ---
RN NOTE NOTIFIED PRODUCTION MACHINIST MATTHEW MUSTAFA REGARDING POTASSIUM OF 2.9, ORDERS FOR 60 MEQ OF POTASSIUM CHLORIDE 6 BAGS) CARRIED OUT.
[2020-09-16] MEDS: POTASSIUM CL. PREMIX PERIPHER. 50 ML IV SCH ×6 (06:15→11:47)
--- NOTE | 2020-09-16 06:29 | NUR ---
RN CLOSING NOTE NO SIGNIFICANT CHANGES DURING MY SHIFT. NO SOB NO RESP DISTRESS NOTED. O2 SATURATION IS 99% AT THIS TIME. SINUS ON CARDIAC MONITORING WITH HEART RATE OF 77 AT THIS TIME. IV FLUIDS RUNNING AT 83ML/HR ORDERED BY DR MARITA BEAN, WHO SAW PT EARLY THIS MORNING. NO S/S OF INFILTRATION NOTED. GT LEAKING STILL, DRAINAGE WAS 100ML. PT SOW 300 OUT, DENIES PAIN. AFEBRILE AT THIS TIME. ORAL CARE WOUND CARE BED BATH DONE. SAFETY MEASURES IN PLACE. HOB ELEVATED. SIDE RAILS UP X3, BED LOCKED IN LOWEST POSITION. BED ALARM ON. WILL CONTINUE TO MONITOR FOR REMAINDER OF SHIFT, WILL GIVE REPORT TO ONCOMING NURSE FOR CONTINUATION OF CARE
--- NOTE | 2020-09-16 07:40 | NUR ---
ICU/RN PT IS NEW TRACH ON THE VENT AC MODE,FIO2-40%,SAT O2-100%. V/S STABLE,AFEBRILE.NO PAIN REPORTED AT THIS TIME.G-TUBE CLAMPED.NPO .RIGHT UPPER ARM PICC LINE.F/C DRAINING WITH YELLOW URINE.GENERALIZED EDEMA PRESENT.SACRAL WOUND COVERED WITH CLEAN DRESSING.PT IS AWAKE,ALERT.LABS REVIEW.MD NOTIFIED.NEW ORDERS RECEIVED.
[2020-09-16] MEDS: PROSOURCE / PROSTAT (PYXIS) 30 ML UDC GT SCH (08:02)
[2020-09-16] MEDS: PANTOPRAZOLE 40 MG/PACK PACK GT SCH (08:02)
[2020-09-16] MEDS: ASPIRIN 81 MG TAB.CHEW PO SCH (08:02)
[2020-09-16] MEDS: MEGESTROL ACETATE SUSP 400 MG/10 ML UDC PO SCH ×2 (08:03→16:15)
[2020-09-16] MEDS: FERROUS SULFATE UDC 300 MG/5 ML UDC PO SCH ×2 (08:03→16:15)
[2020-09-16] MEDS: GABAPENTIN 300 MG CAPSULE PO SCH ×3 (08:04→16:16)
[2020-09-16] MEDS: MINERAL OIL/PETROLATUM,WHITE 120 GM JAR TP SCH (08:06)
[2020-09-16] MEDS: CLOTRIMAZOLE 1% 15 GM TUBE TP SCH ×2 (08:06→16:17)
[2020-09-16] MEDS: DOXYCYCLINE 100 MG in IV D5W 100 ML IV SCH ×2 (08:06→20:15)
--- NOTE | 2020-09-16 08:34 | NUR ---
WOUND CARE FOLLOW UP: PT SEEN FOR RE-EVALUATION OF SACRAL AND LEFT HIP DEEP TISSUE INJURIES. SACRAL DEEP TISSUE INJURY IS IN EVOLUTION WITH WOUND BED CHANGES NOTED TO INCLUDE BROWN TISSUE. SACRAL SCARRING WAS NOTED TO BE PRESENT ON ADMISSION. LEFT HIP DEEP TISSUE INJURY IN EVOLUTION WITH SCANT SEROUS DRAINAGE. SURGICAL CONSULT REQUESTED FROM DR MONZON. RECOMMENDATIONS MADE FOR SKIN PROTECTION AND WOUND CARE. DISCUSSED WITH NURSING STAFF. PT NOTED TO HAVE MULTIPLE CO-MORBIDITIES INCLUDING CANCER, CACHEXIA AND RESPIRATORY FAILURE (CURRENTLY TRACHED AND ON VENTILATOR). DUE TO MULTIPLE CO-MORBIDITES, FURTHER SKIN BREAKDOWN MAY BE UNAVOIDABLE. PT IS ON FIRST STEP CIRS LOW AIRLOSS MATTRESS. G TUBE NOTED. PT FOLLOWED BY DIETITIAN. IN AGREEMENT WITH PLAN OF CARE. Addendum: 09/16/20 at 0838 by ANA PAULA WANG WNDNU Amended: Links added.
--- NOTE | 2020-09-16 09:00 | NUR ---
ICU/RN DUE MEDS ARE GIVEN ORDERED.
[2020-09-16] MEDS: Potassium Chloride 30 MEQ in IV D5/0.45 NACL 1,000 ML IV PRN ×2 (09:13→21:52)
--- NOTE | 2020-09-16 09:48 | NUR ---
SS Note: COMFORT received call from APS Nigel Mendez [phone] requesting location of pt. COMFORT informed Nigel that pt. is still in house. SW will be available as needed.
[2020-09-16] MEDS ORDERED: JEVITY 1.2 CAL 1,000 ML BOTTLE GT SCH (11:32)
[2020-09-16] MEDS: MORPHINE SULFATE INJ 2 MG/ML DISP.SYRIN IV PRN ×3 (11:53→20:14)
--- NOTE | 2020-09-16 12:50 | NUR ---
RN NOTE (12:50) REASSESSMENT NEURO: ALERT. FOLLOW COMMANDS. UNABLE TO ASSESS ORIENTATION DUE TO TRACH VENT. . ALL EXTREMITIES WEEK. LESS THAN GRAVITY. SEE COMPLETE FLOW SHEET. CARDIAC: SR ON THE MONITOR. REGULAR S1&S2 RESPIRATORY; PT IS ON VT. FIO2 40%. PEEP 5. SAT 100%. NO RESPIRATORY NOTED. GI: G-TUBE CONNECTED TO GRAVITY DRAINAGE BAG. G-TUBE SITE INTACT. PT CURRENTLY ON TUBE FEEDING (JEVITY 1.2 ) RATE OF 20ML/HR. GOAL 40ML/HR. WILL INCREASE THE RATE BASED ON PT TOLERANCE. : SOW IS INTACT. SEE FLOW CHART FOR URINE OUTPUT. SKIN: BED BATH PROVIDED. WOUND NURSE SAW PATIENT IN THE MORNING. DRESSING APPLIED PER ORDER. SCD APPLIED FOR DVT PREVENTION. ACTIVITY: TURNED AND POSITIONED PER PROTOCOL. MEDICATION - MEDICATION ADMINISTERED PER ORDER - MORPHINE ADMINISTERED FOR PAIN. WILL REASSESS THE PAIN LAD - G-TUBE INTACT. - PICC LINE STILL INTACT. IV FLUID INFUSING. - SOW CARE PROVIDED. INTERVENTION AND PLAN - WOUND NURSE VISIT. DRESSING APPLIED PER ORDER. - WILL INCREASE TUBE FEEDING RATE (GOAL 40ML/HR) - P.T SAW PATIENT IN THE MORNING BUT PT NOT WELL TOLERATED. - DC ICU STATUS AND TRANSFER TO TELE UNIT. WAITING FOR BED.
--- NOTE | 2020-09-16 16:45 | NUR ---
ICU/RN PM CARE PROVIDED.ALL MEDS ARE GIVEN ORDERED.WOUND DRESSING DONE ORDERED. PT C/O OF PAIN MORPHINE SULFATE IV GIVEN .REPOSITION FOR COMFORT.V/S STABLE,AFEBRILE.OK TRANSFER TO TELE UNIT.WAITING FOR THE BED.
--- NOTE | 2020-09-16 18:00 | NUR ---
TOPOLOGY PROFESSOR NOTES RECEIVED PT FROM FIRE WATCHER LISA VIA BED, WITH RT'S, PT IS AWAKE, ALERT AND ABLE TO MAKE NEEDS KNOWN, DENIES PAIN, NOT IN DISTRESS, GT FEEDING INFUSING WELL, F/C IN PLACE, ON VENT/TRACH, NO SHORTNESS OF BREATH, REPORT RECEIVED, KEPT PT COMFORTABLE IN BED.
--- NOTE | 2020-09-16 18:05 | NUR ---
ICU/RN PT TRANSFERRED TO TELE UNIT.V/S STABLE,AFEBRILE.NO PAIN REPORTED AT THIS TIME.
--- NOTE | 2020-09-16 19:52 | NUR ---
SOFTWARE QA SYSTEM SPECIALIST OPENING NOTE PATIENT ALERT; MOUTHS WORDS. TOLERATING VENT SETTINGS WELL WITH NO SOB. EXTERNAL INSTRUMENT MAKER AND REPAIRER READS NSR AT 80'S. LAURENT #18G D5 1/2NS + KCL MEQ @ 83 HR/ML; PATENT AND INTACT. GTUBE FEEDING JEVITY 1.2 @ 20ML/HR; PATENT AND INTACT. F/C DRAINING DARK RO COLORED URINE. SAFETY MEASURES IN PLACE: BED IN LOWEST LOCKED POSITION, SIDE RAILS UPX2, CALL LIGHT WITHIN EASY REACH BED ALARM ON. PATIENT IN STABLE CONDITION. WILL CONTINUE PLAN OF CARE.
--- NOTE | 2020-09-16 20:14 | NUR ---
FURNACE CLERK NOTE - PAIN PT C/O 12/07 PAIN. ADMINISTERED MORPHINE ORDERED. WILL CONTINUE TO REASSESS FOR PAIN 30 MINUTES
[2020-09-17 00:34] VITALS: BP 124/67
[2020-09-17] MEDS: MORPHINE SULFATE INJ 2 MG/ML DISP.SYRIN IV PRN ×5 (00:50→18:03)
--- NOTE | 2020-09-17 00:50 | NUR ---
CABLE STRETCHER AND TESTER NOTE - PAIN PT C/O FLACC 10/10 PAIN. ADMINISTERED MORPHINE ORDERED. WILL CONTINUE TO REASSESS FOR PAIN IN 30 MINUTES
[2020-09-17] MEDS: IPRATROPIUM NEB FS 0.5 MG/2.5 ML AMPUL.NEB NEB SCH ×4 (01:53→19:07)
[2020-09-17] MEDS: ALBUTEROL FS 2.5 MG/0.5 ML VIAL.NEB NEB SCH ×4 (01:53→19:07)
[2020-09-17] MEDS: HYDROCORTISONE SOD SUCCINATE 100 MG/2 ML VIAL IV SCH ×3 (02:04→18:03)
[2020-09-17 04:12] VITALS: BP 98/45
--- NOTE | 2020-09-17 05:00 | NUR ---
RADIO COMMUNICATION COORDINATOR NOTE - PAIN PT C/O FLACC 10/10 PAIN. ADMINISTERED MORPHINE ORDERED. WILL CONTINUE TO REASSESS FOR PAIN IN 30 MINUTES
--- NOTE | 2020-09-17 06:56 | NUR ---
MASSOTHERAPIST CLOSING NOTE PATIENT ALERT; MOUTHS WORDS. TOLERATING VENT SETTINGS WELL WITH NO SOB. EXTERNAL CAFE ASSOCIATE READS NSR AT 80'S. LAURENT #18G D5 1/2NS + KCL MEQ @ 83 HR/ML; PATENT AND INTACT. GTUBE FEEDING JEVITY 1.2 @ 35ML/HR; PATENT AND INTACT. F/C DRAINING DARK RO COLORED URINE. SAFETY MEASURES IN PLACE: BED IN LOWEST LOCKED POSITION, SIDE RAILS UPX2, CALL LIGHT WITHIN EASY REACH BED ALARM ON. PATIENT IN STABLE CONDITION. WILL ENDORSE PLAN OF CARE TO ONCOMING AM RN.
--- NOTE | 2020-09-17 07:30 | NUR ---
ELECTRICAL EQUIPMENT TECHNICIAN NOTES PT IN BED, AWAKE, ALERT AND ABLE TO MAKE NEEDS KNOWN, NO COMPLAINT OF PAIN AT THIS TIME, RESPIRATIONS NORMAL, ON VENT/TRACH, NO SOB, REPOSITIONED FOR COMFORT, KEPT COMFORTABLE IN BED.
[2020-09-17 08:00] VITALS: BP 110/43
[2020-09-17] MEDS: DOXYCYCLINE 100 MG in IV D5W 100 ML IV SCH ×2 (08:47→20:53)
[2020-09-17] MEDS: PROSOURCE / PROSTAT (PYXIS) 30 ML UDC GT SCH ×3 (08:47→18:32)
[2020-09-17] MEDS: PANTOPRAZOLE 40 MG/PACK PACK GT SCH (08:48)
[2020-09-17] MEDS: FERROUS SULFATE UDC 300 MG/5 ML UDC PO SCH ×2 (08:48→16:36)
[2020-09-17] MEDS: ASPIRIN 81 MG TAB.CHEW PO SCH (08:48)
[2020-09-17] MEDS: MEGESTROL ACETATE SUSP 400 MG/10 ML UDC PO SCH ×2 (08:48→16:37)
[2020-09-17] MEDS: GABAPENTIN 300 MG CAPSULE PO SCH ×3 (08:48→16:36)
[2020-09-17] MEDS: MINERAL OIL/PETROLATUM,WHITE 120 GM JAR TP SCH (09:00)
[2020-09-17] MEDS: Potassium Chloride 30 MEQ in IV D5/0.45 NACL 1,000 ML IV PRN (09:21)
[2020-09-17] MEDS: CLOTRIMAZOLE 1% 15 GM TUBE TP SCH ×2 (11:55→18:04)
--- NOTE | 2020-09-17 12:18 | NUR ---
RT: PATIENT WAS ON CPAP MODE BUT DR. TOURE PLACED PATIENT ON AC OODE R 16, 450, +5, 40% DUE TO APNEA ALARM. LESLEY BURNS WAS INFORMED AND TOLD TO INPUT BACKUP AC ORDER PER MD ORDER.
--- NOTE | 2020-09-17 14:00 | NUR ---
HEAD TURBINE OPERATOR NOTES PROSTAT ORDER CHANGED TO BID, AM DOSE GIVEN.
[2020-09-17 16:00] VITALS: BP 113/64
--- NOTE | 2020-09-17 19:00 | NUR ---
CHIEF NUCLEAR MEDICINE TECHNOLOGIST NOTES PT IN BED, AWAKE, ALERT AND ORIENTED, NOT IN DISTRESS, PM CARE PROVIDED, SEEN BY DR. LOREDO TODAY, PM MEDS GIVEN, ALL NEEDS ATTENDED.
--- NOTE | 2020-09-17 19:51 | NUR ---
MS RN NOTES PATIENT IN BED SHAKING HIS HEAD SIDE TO SIDE-- ENDORSED TO ME LIKE THAT. NO C/O PAIN AT THIS TIME. SOW DRAINING CLEAR DARK YELLOW URINE. NO FLUIDS RUNNING AT THIS TIME. NOTED EXTREMITIES SWOLLEN. TUBE FEEDING HELD AT THIS TIME-- ENDORSED TO ME THAT PATIENT HAS A LOT OF RESIDUALS. SAFETY IN PLACE. WILL CONTINUE TO MONITOR.
[2020-09-17 20:00] VITALS: BP 119/78
[2020-09-17] MEDS ORDERED: Potassium Chloride 40 MEQ in IV D5W 1,000 ML IV PRN (20:00)
[2020-09-18] VITALS: BP 148/69
[2020-09-18] MEDS: IPRATROPIUM NEB FS 0.5 MG/2.5 ML AMPUL.NEB NEB SCH ×3 (01:31→13:49)
[2020-09-18] MEDS: ALBUTEROL FS 2.5 MG/0.5 ML VIAL.NEB NEB SCH ×3 (01:31→13:49)
[2020-09-18] MEDS: HYDROCORTISONE SOD SUCCINATE 100 MG/2 ML VIAL IV SCH ×2 (03:05→10:45)
--- NOTE | 2020-09-18 05:32 | NUR ---
PATIENT RECEIVED ON TRACH TO VENT SUPPORT WITH SETTINGS OF AC 16, 450 Vt, 40%, +5. SUCTIONED WITH LAVAGE FOR MINIMAL, THIN, CLEAR SECRETIONS. GIVEN IN-LINE TREATMENTS WITH NO ADVERSE REACTIONS. AMBU BAG AT BEDSIDE. VENT ALARM AUDIBLE AND VISIBLE. Addendum: 09/18/20 at 0534 by LAUREL KO RT Amended: Links added.
--- NOTE | 2020-09-18 07:17 | NUR ---
RN CLOSING NOTES PATIENT IN BED. NO S/S OF DISTRESS. NO C/O PAIN. ALL NEEDS ATTENDED. ALL SCHED MEDS ADMINISTERED. NO SIGNIFICANT CHANGE SINCE LAST SHIFT. WILL ENDORSE TO MORNING SHIFT RN .
--- NOTE | 2020-09-18 07:46 | NUR ---
MS/RN OPENING NOTES RECEIVED PATIENT IN BED AWAKE, ALERT AND ORIENTED X3, ABLE TO MOUTH WORDS. PATIENT IS ON TRACH AND VENT DEPENDENT AT THE PRESCRIBED SETTING, SATURATING WELL. PATIENT IN NO APPARENT DISTRESS NOTED. NO SIGN AND SYMPTOM OF PAIN NOTED AT THIS TIME. WILL CONTINUE TO MONITOR.
[2020-09-18 08:00] VITALS: BP 126/84
[2020-09-18 08:46] LABS: CALCIUM, SERUM 8.7 mg/dL (8.5-10.1); CREATININE 0.6 mg/dL (0.6-1.3); POTASSIUM 4.5 mmol/L (3.5-5.1)
[2020-09-18 08:51] LABS: ALBUMIN 1.7 g/dL (3.4-5.0); BILIRUBIN,TOTAL 0.4 mg/dL (0.2-1.0); TOTAL PROTEIN, SERUM 4.5 g/dL (6.4-8.2)
[2020-09-18 08:59] LABS: BASOPHILS % (AUTO) 0.3 % (0.0-2.0); HEMATOCRIT 25 % (39-51); HEMOGLOBIN 7.9 g/dL (13.5-17.5); LYMPHOCYTES # (AUTO) 0.6 K/uL (0.8-4.8); MEAN CORPUSCULAR HGB CONC 32 g/dl (31.0-36.0); MEAN CORPUSCULAR VOLUME 93 fL (80-96); MONOCYTES # (AUTO) 0.5 K/uL (0.1-1.30); MONOCYTES % (AUTO) 3.4 % (2.0-12.0); NEUTROPHILS # (AUTO) 12.7 K/uL (1.8-8.9); NEUTROPHILS % (AUTO) 92.3 % (43.0-81.0); PLATELET COUNT (AUTO) 102 K/uL (150-450); RED BLOOD CELL COUNT(AUTO) 2.66 MIL/uL (4.5-6.0); WHITE BLOOD COUNT (AUTO) 13.8 K/uL (4.3-11.0)
[2020-09-18] MEDS: ASPIRIN 81 MG TAB.CHEW PO SCH (09:06)
[2020-09-18] MEDS: PANTOPRAZOLE 40 MG/PACK PACK GT SCH (09:06)
[2020-09-18] MEDS: FERROUS SULFATE UDC 300 MG/5 ML UDC PO SCH ×2 (09:06→17:03)
[2020-09-18] MEDS: MEGESTROL ACETATE SUSP 400 MG/10 ML UDC PO SCH ×2 (09:06→17:03)
[2020-09-18] MEDS: GABAPENTIN 300 MG CAPSULE PO SCH ×3 (09:06→17:03)
[2020-09-18] MEDS: CLOTRIMAZOLE 1% 15 GM TUBE TP SCH ×2 (09:13→17:16)
[2020-09-18] MEDS: MINERAL OIL/PETROLATUM,WHITE 120 GM JAR TP SCH (09:16)
[2020-09-18] MEDS: DOXYCYCLINE 100 MG in IV D5W 100 ML IV SCH (09:26)
[2020-09-18] MEDS: PROSOURCE / PROSTAT (PYXIS) 30 ML UDC GT SCH ×2 (09:26→17:11)
[2020-09-18 12:00] VITALS: BP 102/81
--- NOTE | 2020-09-18 12:30 | NUR ---
RN NOTES PATIENTS BELONGING COULDN'T FIND LANDEN WET SUIT GLUER WAS AWARE. THEY WILL INVESTIGATE PER LANDEN.
--- NOTE | 2020-09-18 12:39 | NUR ---
RN NOTE SPOKE WITH DR. LOREDO AND VERBALLY ORDERED THRU PHONE TO DISCHARGE THE PT AND CONTINUE ALL MEDS. ORDER CARRIED OUT.
[2020-09-18] MEDS: MORPHINE SULFATE INJ 2 MG/ML DISP.SYRIN IV PRN ×2 (12:43→19:45)
[2020-09-18] MEDS ORDERED: JEVITY 1.2 CAL 1,000 ML BOTTLE GT SCH ×2 (13:30)
[2020-09-18 16:00] VITALS: BP 105/76
--- NOTE | 2020-09-18 19:16 | NUR ---
RN CLOSING NOTES PATIENT IN BED AWAKE, ALERT AND ORIENTED X3, ABLE TO MOUTH WORDS. PATIENT IS ON TRACH AND VENT DEPENDENT AT THE PRESCRIBED SETTING, SATURATING WELL. PATIENT IN NO APPARENT DISTRESS NOTED. NO SIGN AND SYMPTOM OF PAIN NOTED AT THIS TIME. REPORT WAS GIVEN TO CONRAD BORREGO AT [facility]. PATIENT IS FOR DISCHARGE TO SNF WAITING FOR C[employer]ER [employer]PERATIONS [employer]OCIATE. WILL ENDORSED TO FLEET SALESPERSON.
--- NOTE | 2020-09-18 20:20 | NUR ---
Patient discharged at 2014 via ambulance accompanied by 2 secondary teacher and resp. therapist. In stable condition. Morphine given 30 mins prior for severe pain effective with 3/10 pain before leaving. VS: 107/67, 100% O2, HR 73, RR 18. G-tube flushed with 150cc. PICC line flushed 10cc NS. Left with documentation. SNF called for update.
== END 2020-09-18 20:10 | DRG 5 ==
LOC: ER 18:53 → TELE1 22:47 → MEDSG1 08-24 10:39 → TELE1 08-26 04:49 → ICU 08-26 05:06 → TELE 09-16 18:08
PROVIDERS: ADMIT Student in an Organized Health Care Education/Training Program; ATTEND Student in an Organized Health Care Education/Training Program
PROC: 5A1955Z Respiratory Ventilation, Greater than 96 Consecutive Hours (ICD-10-PCS; principal; 2020-08-26)
PROC: 0BH18EZ Insertion of Endotracheal Airway into Trachea, Via Natural or Artificial Opening Endoscopic (ICD-10-PCS; 2020-08-26)
PROC: 02HV33Z Insertion of Infusion Device into Superior Vena Cava, Percutaneous Approach (ICD-10-PCS; 2020-08-26)
PROC: B548ZZA Ultrasonography of Superior Vena Cava, Guidance (ICD-10-PCS; 2020-08-26)
PROC: 0B9G8ZZ Drainage of Left Upper Lung Lobe, Via Natural or Artificial Opening Endoscopic (ICD-10-PCS; 2020-08-29)
PROC: 0B9C8ZZ Drainage of Right Upper Lung Lobe, Via Natural or Artificial Opening Endoscopic (ICD-10-PCS; 2020-08-29)
PROC: 0BH17EZ Insertion of Endotracheal Airway into Trachea, Via Natural or Artificial Opening (ICD-10-PCS; 2020-09-07)
PROC: 5A1955Z Respiratory Ventilation, Greater than 96 Consecutive Hours (ICD-10-PCS; 2020-09-07)
PROC: 0B113F4 Bypass Trachea to Cutaneous with Tracheostomy Device, Percutaneous Approach (ICD-10-PCS; 2020-09-12)
PROC: 0BJ08ZZ Inspection of Tracheobronchial Tree, Via Natural or Artificial Opening Endoscopic (ICD-10-PCS; 2020-09-12)
PROC: 0DH63UZ Insertion of Feeding Device into Stomach, Percutaneous Approach (ICD-10-PCS; 2020-09-13)
DX: A41.9 Sepsis, unspecified organism (principal); R65.21 Severe sepsis with septic shock; J15.6 Pneumonia due to other Gram-negative bacteria; E43 Unspecified severe protein-calorie malnutrition; C22.7 Other specified carcinomas of liver; C22.9 Malignant neoplasm of liver, not specified as primary or secondary; R64 Cachexia; E27.40 Unspecified adrenocortical insufficiency; J98.4 Other disorders of lung; D63.8 Anemia in other chronic diseases classified elsewhere; J96.01 Acute respiratory failure with hypoxia; J15.9 Unspecified bacterial pneumonia; E83.42 Hypomagnesemia; E88.09 Other disorders of plasma-protein metabolism, not elsewhere classified; R62.7 Adult failure to thrive; J44.0 Chronic obstructive pulmonary disease with (acute) lower respiratory infection; R29.6 Repeated falls; Z68.1 Body mass index [BMI] 19.9 or less, adult; Z91.81 History of falling; Z59.0 Homelessness; F17.210 Nicotine dependence, cigarettes, uncomplicated; L03.113 Cellulitis of right upper limb; L03.032 Cellulitis of left toe; M47.816 Spondylosis without myelopathy or radiculopathy, lumbar region; F11.20 Opioid dependence, uncomplicated; G89.3 Neoplasm related pain (acute) (chronic); R63.4 Abnormal weight loss; E83.51 Hypocalcemia; E83.52 Hypercalcemia; K80.20 Calculus of gallbladder without cholecystitis without obstruction
CPT/HCPCS: 31623; 31720; 36415; 36569; 36600; 43246; 71045-TC; 71250-TC; 74018; 76700-TC; 76705-TC; 80048-TC; 80053-TC; 80061-TC; 80076-TC; 80202-TC; 81001; 82105; 82378; 82533; 82728-TC; 82784; 82803-TC; 83540-TC; 83735-TC; 84100-TC; 84153-TC; 84154-TC; 84155; 84165; 84443-TC; 84478-TC; 84484-TC; 85025-TC; 85730-TC; 86334; 86480; 86704; 86706; 86709-TC; 86803; 87040-TC; 87070-TC; 87081-TC; 87086-TC; 87116; 87186-TC; 87206; 87340; 87806; 87899; 88108-TC; 88305-TC; 89051-TC; 92526; 92611-TC; 94002-TC; 94003-TC; 94760-TC; 94799-TC; 97110-TC; 97112-TC; 97116-TC; 97530-TC; 99082-TC; A4216; A4217; A4349; A6253; A6403; A7526; C9803; G0378; J0330; J0690; J0692; J0696; J1720; J1940; J1956; J2060; J2248; J2250; J2270; J2370; J2405; J2543; J2704; J3370; J3475; J3480; J3490; J7030; J7040; J7042; J7050; J7060; J7070; J7120; P9047; Q9963; Q9967